=== PATIENT | female | born 1950 | race Caucasian/White ===

== ENCOUNTER 2016-10-28 11:11 | Emergency (ER) | payer OTHER ==
[~2016-10-28] VITALS: Ht 162.6 cm; Wt 58.1 kg
[2016-10-28 11:16] VITALS: BP 143/91; PULSE 95; TEMP 36.8; O2SAT 98; Ht 162.6 cm; Wt 58.1 kg
--- NOTE | 2016-10-28 17:06 | EMERGENCY ROOM VISIT NOTE ---
History Report prepared by Eneida: Jesica Sotelo Under the Supervision of: Dr. Kris Travis D.O. First contact with patient: 11:21 Chief Complaint: OTHER COMPLAINT Stated Complaint: NOT SLEEPING History of Present Illness The patient is a 66 year old female who presents to the Emergency Room with complaints of persistently being unable to sleep that started over one month ago. The patient states that she has never been able to well and that her sister has similar symptoms. She states that she sleeps no more than 2 hours a night and does not sleep during the day. She states that she lays down in her bed at night and watches TV. She has tried turning the TV off, but she states that it does not help. When she lays down to go to bed at night, she thinks about her whole life but nothing is concerning to her. She denies racing thoughts. She also denies headache, changes in vision, chest pain, shortness of breath, nausea, vomiting, and diarrhea. The patient states that she is stressed and that she lives in a four story farmhouse, but only stays on the first floor. She states that she avidly watches tennis. She states that she loves animals and has two dogs and two feral cats that she takes care of. She denies any suicidal or homicidal ideation, along with any recent drug or alcohol use. The patient also denies any personal or family history of bipolar disorder, schizophrenia, or manic episodes. The patient is not on any medications and has not been into to see a PCP for a while because the one she liked retired. She adds that she was in the hospital in September for dehydration because she was not eating or drinking. She states that she has been eating and drinking since then. She also states that during that visit they tried to tell her that she had drugs in her system, but she knows that she did not. The patient's notes from a prior visit indicate that she has been an alcoholic for years, abuses Xanax intermittently, used to abuse heroine, and stopped methadone. Source of History: patient Onset: over one month ago Position: other (generalized) Quality: other (unable to sleep) Timing: other (persistent) Associated Symptoms: No SOB, No chest pain, No diarrhea, No headache, No nausea, No vomiting Note: no racing thoughts, no suicidal or homicidal ideation, no changes in vision Review of Systems See HPI for pertinent positives & negatives. A total of 10 systems reviewed and were otherwise negative. Past Medical & Surgical Medical Problems: (1) Delirium (2) No pertinent past medical history (3) opiate (4) Opiate abuse, continuous (5) Polysubstance abuse Family History Diabetes mellitus SISTER Stroke FATHER Social History Smoking Status: Current Every Day Smoker Drug Use: other Marital Status: single Housing Status: lives alone Occupation Status: retired Current/Historical Medications No Active Prescriptions or Reported Meds Allergies Coded Allergies: No Known Allergies (Unverified , 10/03/16) Physical Exam Vital Signs Date Time Temp Pulse Resp B/P Pulse Ox O2 Delivery O2 Flow Rate FiO2 10/28/16 11:16 36.8 95 18 143/91 98 Room Air Physical Exam GENERAL: alert, sitting up in bed, anxious appearing, well nourished, no acute distress, non-toxic EYE EXAM: normal conjunctiva, PERRL and EOM's intact OROPHARYNX: no exudate, no erythema, lips, buccal mucosa, and tongue normal and mucous membranes are moist NECK: supple, no nuchal rigidity, no adenopathy, non-tender LUNGS: Clear to auscultation. Normal chest wall mechanics HEART: no murmurs, S1 normal and S2 normal ABDOMEN: abdomen soft, non-tender, normo-active bowel sounds, no masses, no rebound or guarding. BACK: Back is symmetrical on inspection and there is no deformity, no midline tenderness, no CVA tenderness. SKIN: no rashes and no bruising UPPER EXTREMITIES: upper extremities are grossly normal. LOWER EXTREMITIES: No pitting edema. NEURO EXAM: Normal sensorium, cranial nerves II-XII intact, normal speech, no weakness of arms, no weakness of legs. No drift. Finger to nose intact. Gross sensation intact. Alternating movements of upper extremities intact bilaterally. PSYCH: Denies suicidal or homicidal ideation. Denies racing thoughts. Medical Decision & Procedures Laboratory Results ED Course ED COURSE: Vital signs were reviewed and showed normal The patients medical record was reviewed The above diagnostic studies were performed and reviewed. ED treatments and interventions as stated above. 1134: The patient was evaluated in room C8. A complete history and physical examination was performed. 1203: The nurse informed me that the patient is refusing an IV and would like to leave now. 1205: I reassessed the patient. She refused blood work and urine sample. She notes that she just wants something to sleep. She, again, denies suicidal or homicidal ideation. The patient's girlfriend believes that the patient is at baseline and is well enough to go home. The patient simply requests something to sleep at this time. I recommended that she follows up with a PCP for that because I felt uncomfortable giving her anything due to her history of narcotic and benzo abuse. The patient left against medical advice at this time. Medical Decision Differential diagnosis includes etiologies such as mood disorder, infection, hypoglycemia, electrolyte abnormalities, cardiac sources, intracerebral event, toxicologic, neurologic, as well as others were entertained. Patient is a 66-year-old female who presents the ER with difficulty sleeping. She notes this has been present for the past several years and that her sister has the same issues. She denies any other complaints. This includes suicidal homicidal ideations. She denies any auditory visual hallucinations. She denies any recent thoughts. She denies any chest pain, shortness breath, nausea , vomiting, diarrhea, lightheadedness, dizziness, change in vision, or any other concerning signs or symptoms from her standpoint. She also denies any drugs or alcohol. Neuro is completely intact. She was with a friend at bedside. Upon review of her chart I recommended blood work for the patient declined. She notes that she just wants medication to help her sleep. Upon further review of her chart appears as though she has abused benzos and opiates in the past. At that time she appears to be misled the doctor as this time she told me that she had no previous drug or alcohol issues. She notes the previous doctors were lying. Still this time stressed the importance of blood work and a full evaluation. Patient declined. She requested medication since discharge. I declined as I felt this was unreasonable with her drug abuse. Following this the patient requested to be discharged and she left following informed refusal of care. I do not feel she isn't danger to herself or anyone around her. Her neighbor felt as though she was acting herself and was in no danger. Discussed with Pt concerning signs and symptoms to watch out for. Pt was instructed to follow up with their PCP and discussed with the patient their option to return to the ED at anytime for persistent or worsening symptoms. The appropriate anticipatory guidance and out-patient management, including indications for return to the emergency department, were explained at length to the patient and understood. Impression Primary Impression: Sleep disorder Scribe Attestation The scribe's documentation has been prepared under my direction and personally reviewed by me in its entirety. I confirm that the note above accurately reflects all work, treatment, procedures, and medical decision making performed by me. Departure Information Dispostion Against Medical Advice Prescriptions No Active Prescriptions or Reported Meds Referrals No Doctor, Assigned (PCP) Patient Instructions [facility]
== END 2016-10-28 12:15 | disposition left against medical advice (07) ==
LOC: C.EDB 11:16 → C.EDC 12:15
DX: G47.9 Sleep disorder, unspecified (principal); F11.10 Opioid abuse, uncomplicated; F17.210 Nicotine dependence, cigarettes, uncomplicated

== ENCOUNTER 2020-07-22 11:09 | Observation (INO) ==
--- OUTSIDE RECORDS SUMMARY | 2020-07-22 11:12 | External Medical Summary | Continuity of Care Document ---
:1950 Author Name Yuridia Almaguer Address Unavailable Unavailable , Care Team Providers Name Role Phone Unavailable Unavailable Unavailable Kg SILVA Unavailable [email or web address] PRO Rosina, W Unavailable Unavailable Unavailable Unavailable Unavailable Problems Tobacco use (305.1) (Z72.0) Changing nevus (216.9) (D22.9) Nicotine dependence (305.1) (F17.200) Screening for deficiency anemia (V78.1) (Z13.0) Screening for thyroid disorder (V77.0) (Z13.29) Migraine headache (346.90) (G43.909) Insomnia (780.52) (G47.00) Encounter for screening for lipoid disorders (V77.91) (Z13.2 20) Anxiety disorder (300.00) (F41.9) Substance abuse (305.90) (F19.10) Hepatitis C (070.70) (B19.20) Encounter for screening for diabetes mellitus (V77.1) (Z13.1 ) Allergies and Adverse Reactions No Known Drug Allergies (Allergy) Medications hydrOXYzine HCl - 50 MG Oral Tablet; CITLALY E 1 TABLET 3-4 TIMES DAILY NEEDED FOR SEVERE ANXIETY RICARDO Saul Tia Start: 19-Oct-2016 Quantity: 30 Refills: 0 Procedures History of Oral Surgery Tooth Extraction Status: Completed History of Incisional Breast Biopsy Stat us: Completed History of Biopsy Skin Status: Completed Immunizations Prevnar 13 Intramuscular Suspension On: 26-Jul-2016 11:12 Lot #: [id number] Family History Sister Family history of diabetes mellitus (V18.0) (Z83.3) Status: Active Family history of coronary artery disease (V17.3) (Z82.49) S tatus: Active Mother No pertinent family history in first degree relatives (V49.8 9) Status: Active (Z78.9) Brother No pertinent family history in first degree relatives (V49.8 9) Status: Active (Z78.9) Father Family history of cerebrovascular accident (V17.1) (Z82.3) S tatus: Active Social History - Smoking Status Smokes tobacco daily Plan of Treatment Planned Observations Planned Goals not documented Results No Known Results Results not documented
--- OUTSIDE RECORDS SUMMARY | 2020-07-22 11:12 | External Medical Summary | Continuity of Care Document ---
:1950 Author Name Yuridia Almaguer Address Unavailable Unavailable , Care Team Providers Name Role Phone Unavailable Unavailable Unavailable Kg SILVA Unavailable [email or web address] PRO Rosina, W Unavailable Unavailable Unavailable Unavailable Unavailable Problems Encounter for screening for diabetes mellitus (V77.1) (Z13.1 ) Anxiety disorder (300.00) (F41.9) Insomnia (780.52) (G47.00) Screening for thyroid disorder (V77.0) (Z13.29) Screening for deficiency anemia (V78.1) (Z13.0) Nicotine dependence (305.1) (F17.200) Changing nevus (216.9) (D22.9) Tobacco use (305.1) (Z72.0) Hepatitis C (070.70) (B19.20) Substance abuse (305.90) (F19.10) Encounter for screening for lipoid disorders (V77.91) (Z13.2 20) Migraine headache (346.90) (G43.909) Allergies and Adverse Reactions No Known Drug [...] Intramuscular Suspension On: 26-Jul-2016 11:12 Lot #: [id number] Family History Sister Family history of diabetes [...]
[2020-07-22] MEDS ORDERED: dilTIAZem HCl 5 MG/ML 5 ML VIAL IV ONE ×2 (11:39→11:58)
[2020-07-22] MEDS ORDERED: STAT IV Infusion **Titration per Protocol STA (11:52)
--- NOTE | 2020-07-22 11:56 | Emergency Department Note ---
History of Present Illness General Chief complaint: Hypertension Stated complaint: EXTREMELY HIGH BLOOD PRESSURE Time Seen by Provider: 07/22/20 11:36 Source: patient History of Present Illness Provider complaint: Palpitation Onset (ago): day(s) Location: chest Severity: moderate Pain Consistency: + constant Quality: + other (Heart racing) Relieved By: + none Associated symptoms: + other (Elevated blood pressure at the drugstore); no chest pain, no fever/chills, no headaches and no shortness of breath This is a 70-year-old female with no past medical history presenting with palpitations since yesterday. The patient states that she felt like her heart was racing last night. She did not take her pulse. It continued into today. No alleviating factors. No associated chest discomfort or pain, shortness of breath, weakness or lightheadedness. She went to the drugstore and took her blood pressure and it was elevated so she came here for evaluation. She denies any recent illness, fever, cough or cold symptoms, exposure to COVID-19, abdominal pain, vomiting or diarrhea or urinary symptoms. She denies any leg pain or swelling. She denies alcohol use. Home Medications Home Medications Medication Instructions Recorded Confirmed Type aspirin 81 mg PO DAILY 07/22/20 07/22/20 History Allergies Allergy/AdvReac Type Severity Reaction Status Date / Time No Known Allergies Allergy Unverified 07/22/20 12:55 Past Med/Surg History Medical History Depression with anxiety Sleep disorder Tobacco abuse Surgical History No history of previous surgery Family History Sister Hx of CABG Father Coronary heart disease Stroke Mother Stroke Coronary heart disease Social History Smoking Status: Current every day smoker Tobacco Type: Cigarettes packs per day: 1; Years Smoked: 50; Hx Alcohol Use: Yes Hx Substance Use: Yes Preferred Language: Tongan marital status: Single Current Living Situation: Significant Other Feels Safe at Home: Yes Review of Systems See HPI for pertinent positives & negatives. and A total of 10 systems reviewed and were otherwise negative Physical Exam Vital Signs Vital Signs - 24 hr 07/22/20 11:27 07/22/20 11:38 07/22/20 11:46 Temperature 36.5 C Temperature Source Oral Pulse Rate 169 H 181 H 162 H Pulse Rate from SpO2 Sensor 160 H Pulse Rhythm Regular Pulse Strength Normal Respiratory Rate 22 22 21 Respiratory Effort / Characteristics Non-Labored Spontaneous Respiratory Depth Normal Respiratory Pattern Regular Blood Pressure 158/101 H 180/120 H 149/78 H Blood Pressure Mean 120 134 116 Blood Pressure Position Sitting Pulse Oximetry 99 100 100 Oxygen Delivery Method Room Air Sepsis Recent Fever Within 48 Hours No Sepsis New/Unexplained Change in Mental Status No Sepsis Action Taken by Nursing No Action Required 07/22/20 11:48 07/22/20 11:50 07/22/20 11:55 Temperature Temperature Source Pulse Rate 163 H 153 H 169 H Pulse Rate from SpO2 Sensor Pulse Rhythm Pulse Strength Respiratory Rate 24 21 17 Respiratory Effort / Characteristics Respiratory Depth Respiratory Pattern Blood Pressure 140/88 138/66 148/77 H Blood Pressure Mean 104 99 95 Blood Pressure Position Pulse Oximetry 100 100 98 Oxygen Delivery Method Sepsis Recent Fever Within 48 Hours Sepsis New/Unexplained Change in Mental Status Sepsis Action Taken by Nursing 07/22/20 11:59 07/22/20 12:00 07/22/20 12:03 Temperature Temperature Source Pulse Rate 162 H 129 H 153 H Pulse Rate from SpO2 Sensor Pulse Rhythm Pulse Strength Respiratory Rate 15 14 16 Respiratory Effort / Characteristics Respiratory Depth Respiratory Pattern Blood Pressure 128/81 149/90 H 130/97 Blood Pressure Mean 114 115 111 Blood Pressure Position Pulse Oximetry 97 96 Oxygen Delivery Method Sepsis Recent Fever Within 48 Hours Sepsis New/Unexplained Change in Mental Status Sepsis Action Taken by Nursing 07/22/20 12:05 07/22/20 12:10 07/22/20 12:15 Temperature Temperature Source Pulse Rate 140 H 132 H 173 H Pulse Rate from SpO2 Sensor Pulse Rhythm Pulse Strength Respiratory Rate 27 H 16 19 Respiratory Effort / Characteristics Respiratory Depth Respiratory Pattern Blood Pressure 140/79 147/91 H 149/93 H Blood Pressure Mean 104 116 100 Blood Pressure Position Pulse Oximetry Oxygen Delivery Method Sepsis Recent Fever Within 48 Hours Sepsis New/Unexplained Change in Mental Status Sepsis Action Taken by Nursing 07/22/20 12:21 07/22/20 12:25 07/22/20 12:30 Temperature Temperature Source Pulse Rate 176 H 153 H 151 H Pulse Rate from SpO2 Sensor Pulse Rhythm Pulse Strength Respiratory Rate 21 14 20 Respiratory Effort / Characteristics Respiratory Depth Respiratory Pattern Blood Pressure 131/98 143/92 H 118/91 Blood Pressure Mean 104 108 103 Blood Pressure Position Pulse Oximetry Oxygen Delivery Method Sepsis Recent Fever Within 48 Hours Sepsis New/Unexplained Change in Mental Status Sepsis Action Taken by Nursing 07/22/20 12:31 07/22/20 12:35 07/22/20 12:40 Temperature Temperature Source Pulse Rate 150 H 150 H 151 H Pulse Rate from SpO2 Sensor Pulse Rhythm Pulse Strength Respiratory Rate 18 20 22 Respiratory Effort / Characteristics Respiratory Depth Respiratory Pattern Blood Pressure 131/86 142/93 H 133/92 Blood Pressure Mean 94 115 107 Blood Pressure Position Pulse Oximetry Oxygen Delivery Method Sepsis Recent Fever Within 48 Hours Sepsis New/Unexplained Change in Mental Status Sepsis Action Taken by Nursing 07/22/20 12:45 07/22/20 12:50 07/22/20 12:55 Temperature Temperature Source Pulse Rate 152 H 152 H 153 H Pulse Rate from SpO2 Sensor Pulse Rhythm Pulse Strength Respiratory Rate 19 21 22 Respiratory Effort / Characteristics Respiratory Depth Respiratory Pattern Blood Pressure 134/101 H 129/83 132/95 Blood Pressure Mean 105 99 102 Blood Pressure Position Pulse Oximetry Oxygen Delivery Method Sepsis Recent Fever Within 48 Hours Sepsis New/Unexplained Change in Mental Status Sepsis Action Taken by Nursing 07/22/20 13:00 07/22/20 13:05 07/22/20 13:22 Temperature Temperature Source Pulse Rate 150 H 150 H 152 H Pulse Rate from SpO2 Sensor 153 H Pulse Rhythm Pulse Strength Respiratory Rate 17 18 20 Respiratory Effort / Characteristics Respiratory Depth Respiratory Pattern Blood Pressure 120/95 149/90 H 147/98 H Blood Pressure Mean 110 116 103 Blood Pressure Position Pulse Oximetry 95 98 Oxygen Delivery Method Sepsis Recent Fever Within 48 Hours Sepsis New/Unexplained Change in Mental Status Sepsis Action Taken by Nursing 07/22/20 13:25 07/22/20 13:30 07/22/20 13:35 Temperature Temperature Source Pulse Rate 154 H 152 H 152 H Pulse Rate from SpO2 Sensor 154 H 152 H 152 H Pulse Rhythm Pulse Strength Respiratory Rate 19 23 14 Respiratory Effort / Characteristics Respiratory Depth Respiratory Pattern Blood Pressure 126/89 105/89 136/121 H Blood Pressure Mean 97 99 122 Blood Pressure Position Pulse Oximetry 97 99 100 Oxygen Delivery Method Sepsis Recent Fever Within 48 Hours Sepsis New/Unexplained Change in Mental Status Sepsis Action Taken by Nursing 07/22/20 13:40 07/22/20 13:41 07/22/20 13:45 Temperature Temperature Source Pulse Rate 153 H 153 H 152 H Pulse Rate from SpO2 Sensor 154 H 154 H 153 H Pulse Rhythm Pulse Strength Respiratory Rate 20 19 17 Respiratory Effort / Characteristics Respiratory Depth Respiratory Pattern Blood Pressure 127/100 142/83 H 124/89 Blood Pressure Mean 111 120 105 Blood Pressure Position Pulse Oximetry 98 99 99 Oxygen Delivery Method Sepsis Recent Fever Within 48 Hours Sepsis New/Unexplained Change in Mental Status Sepsis Action Taken by Nursing 07/22/20 14:00 07/22/20 14:15 07/22/20 14:31 Temperature Temperature Source Pulse Rate 154 H 152 H 154 H Pulse Rate from SpO2 Sensor 154 H 152 H 154 H Pulse Rhythm Pulse Strength Respiratory Rate 13 21 19 Respiratory Effort / Characteristics Respiratory Depth Respiratory Pattern Blood Pressure 141/82 H 151/79 H 143/99 H Blood Pressure Mean 129 105 115 Blood Pressure Position Pulse Oximetry 98 99 100 Oxygen Delivery Method Sepsis Recent Fever Within 48 Hours Sepsis New/Unexplained Change in Mental Status Sepsis Action Taken by Nursing 07/22/20 14:45 07/22/20 15:00 Temperature Temperature Source Pulse Rate 87 Pulse Rate from SpO2 Sensor 87 Pulse Rhythm Pulse Strength Respiratory Rate 16 Respiratory Effort / Characteristics Respiratory Depth Respiratory Pattern Blood Pressure 127/111 H Blood Pressure Mean 114 Blood Pressure Position Pulse Oximetry 97 Oxygen Delivery Method Room Air Sepsis Recent Fever Within 48 Hours Sepsis New/Unexplained Change in Mental Status Sepsis Action Taken by Nursing Constitutional: Vital signs reviewed. Eyes: Pupils are equal round reactive to light. Conjunctiva are noninjected. ENT: Pharynx is clear without erythema or exudate. Mucous membranes are moist. Neck supple without meningeal signs. Respiratory: Clear to auscultation bilaterally. Breath sounds are equal b ilaterally. Cardiovascular: Tachycardic. Heart rate 174. GI: Soft, nondistended and nontender. Bowel sounds are present. Musculoskeletal: No peripheral edema. No lower extremity tenderness. Integumentary: No cyanosis. or jaundice. Neurological: The patient is awake and alert. No focal deficits. Psychiatric: Normal affect. Not anxious appearing. Course Administered Medications Diltiazem HCl 125 mg/ Dextrose 125 mls @ 15 mls/hr IV .Q8H20M [facility]; Protocol Stop: 08/21/20 11:59 Last Titration: 07/22/20 13:08 Dose: 15 mg/hr, 15 mls/hr Documented by: [id number] Cosigned by: [id number] Titration: 07/22/20 12:40 Dose: 10 mg/hr, 10 mls/hr Documented by: [id number] Cosigned by: [id number] Admin: 07/22/20 12:10 Dose: 5 mg/hr, 5 mls/hr Documented by: [id number] Cosigned by: [id number] Heparin Sodium/Dextrose (Heparin Sodium/Dextrose) 25,000 units in 500 mls @ 0.02 mls/hr IV .Q24H [facility]; Protocol Stop: 08/21/20 13:59 Last Admin: 07/22/20 15:30 Dose: 650 units/hr, 13 mls/hr Documented by: [id number] Cosigned by: [id number] Discontinued Medications Diltiazem HCl (Diltiazem Hcl 5 Mg/Ml 5 Ml Vial) Confirm Administered Dose 25 mg IV .STK-MED ONE Stop: 07/22/20 11:40 Last Increment: 07/22/20 11:50 Dose: 20 mg Documented by: [id number] Cosigned by: [id number] Diltiazem HCl (Diltiazem Hcl 5 Mg/Ml 5 Ml Vial) Confirm Administered Dose 25 mg IV .STK-MED ONE Stop: 07/22/20 11:59 Last Increment: 07/22/20 12:02 Dose: 5 mg Documented by: [id number] Cosigned by: [id number] Heparin Sodium (Porcine) (Heparin Sod (Porcine) 1000 Unit/Ml 10 Ml Vial) Confirm Administered Dose 10,000 units .ROUTE .STK-MED ONE Stop: 07/22/20 14:30 Last Admin: 07/22/20 15:30 Dose: 3,000 units Documented by: [id number] Cosigned by: [id number] Heparin Sodium/Dextrose (Heparin Iv Low Dose With Bolus) 1 ea IV NOW STA; Protocol Stop: 07/22/20 13:52 Last Admin: 07/22/20 15:30 Dose: Not Given Documented by: [id number] Sodium Chloride (Nss) 500 mls @ 999 mls/hr IV .Q31M [facility] Stop: 07/22/20 12:30 Last Infusion: 07/22/20 12:40 Dose: 0 mls/hr Documented by: [id number] Admin: 07/22/20 11:54 Dose: 999 mls/hr Documented by: [id number] Potassium Chloride (K Eldon / Wtr) 10 meq in 100 mls @ 100 mls/hr IV Q1H [facility] Stop: 07/22/20 15:44 Last Admin: 07/22/20 15:58 Dose: 100 mls/hr Documented by: [id number] Infusion: 07/22/20 15:36 Dose: 100 mls/hr Documented by: [id number] Admin: 07/22/20 14:36 Dose: 100 mls/hr Documented by: [id number] Metoprolol Tartrate (Metoprolol Tartrate 1 Mg/Ml Vial) 2.5 mg IV NOW STA Stop: 07/22/20 14:26 Last Admin: 07/22/20 14:32 Dose: 2.5 mg Documented by: [id number] Miscellaneous (Stat Iv Infusion Titration Per Protocol) 1 ea N/A NOW STA Stop: 07/22/20 11:53 Last Admin: 07/22/20 12:10 Dose: Not Given Documented by: [id number] Potassium Chloride (Potassium Chloride 20 Meq Tabcr) 40 meq PO NOW STA Stop: 07/22/20 14:42 Last Admin: 07/22/20 15:58 Dose: 40 meq Documented by: [id number] Critical Care Time Critical Care Time: Yes Total Critical Care Time: 40 I have personally spent approximately 40 minutes of critical care time in the direct management of this patient. This includes bedside care, interpretation of diagnostic studies, and testing, discussion with consultants, patient, and family members, and other required patient management activities. These minutes are in excess of all separately billable procedures. Medical Decision Making Differential Diagnosis Dysrhythmia, A. fib with RVR, SVT, metabolic derangement, ACS Medical Records Attestation: I reviewed the patient's medical records. I did perform a limited focused review of portions of the patient's old chart on the electronic medical record. The patient has had no recent pertinent visits to this hospital. Home Medications Current Medication List: was personally reviewed by me Laboratory Data Attestation: I reviewed the patient's lab results. Result diagrams: 07/22/20 11:40 07/22/20 11:40 Lab Results 07/22/20 07/22/20 07/22/20 Range/Units 11:40 11:40 13:07 WBC 8.03 (4.8-10.8) K/uL RBC 6.03 H (4.2-5.4) M/uL Hgb 16.3 H (12.0-16.0) g/dL Hct 49.4 H (37-47) % MCV 81.9 (80-100) fL MCH 27.0 (25-34) pg MCHC 33.0 (32-36) g/dL RDW Std Deviation 48.5 H (36.4-46.3) fL RDW Coeff of Shima 16.1 H (11.5-14.5) % Plt Count 130 (130-400) K/uL MPV 10.8 H (7.4-10.4) fL Immature Gran % (Auto) 0.2 % Neut % (Auto) 72.2 % Lymph % (Auto) 19.8 % Winkler % (Auto) 7.5 % Eos % (Auto) 0.1 % Baso % (Auto) 0.2 % Neut # (Auto) 5.79 (1.4-6.5) K/uL Lymph # (Auto) 1.59 (1.2-3.4) K/uL Winkler # (Auto) 0.60 H (0.11-0.59) K/uL Eos # (Auto) 0.01 (0-0.5) K/uL Baso # (Auto) 0.02 (0-0.2) K/uL Immature Gran # (Auto) 0.02 (0.00-0.02) K/uL PT (9.0-12.0) Seconds INR (0.9-1.1) APTT (21.0-31.0) Seconds PTT Ratio Sodium 142 (136-145) mmol/L Potassium 3.1 L (3.5-5.1) mmol/L Chloride 108 H (98-107) mmol/L Carbon Dioxide 25 (21-32) mmol/L Anion Gap 9.0 (3-11) BUN 17 (7-18) mg/dl Creatinine 0.99 (0.6-1.2) mg/dl Est Cr Clr Drug Dosing 46.3 ml/min Est GFR ( Amer) 67.4 Est GFR (Non-Af Amer) 58.1 BUN/Creatinine Ratio 17.2 (10-20) Glucose 127 H (70-99) mg/dl Calcium 9.9 (8.5-10.1) mg/dl Magnesium 2.0 (1.8-2.4) mg/dl Total Bilirubin 0.9 (0.2-1) mg/dl AST 53 H (15-37) U/L ALT 52 (12-78) U/L Alkaline Phosphatase 98 (45-117) U/L Troponin I 0.017 (0-0.045) ng/ml Total Protein 10.1 H (6.4-8.2) gm/dl Albumin 4.0 (3.4-5.0) gm/dl Globulin 6.1 H (2.5-4.0) gm/dl Albumin/Globulin Ratio 0.7 L (0.9-2) TSH 0.989 (0.300-4.500) uIu/ml // Range/Units 15:26 WBC (4.8-10.8) K/uL RBC (4.2-5.4) M/uL Hgb (12.0-16.0) g/dL Hct (37-47) % MCV (80-100) fL MCH (25-34) pg MCHC (32-36) g/dL RDW Std Deviation (36.4-46.3) fL RDW Coeff of Shima (11.5-14.5) % Plt Count (130-400) K/uL MPV (7.4-10.4) fL Immature Gran % (Auto) % Neut % (Auto) % Lymph % (Auto) % Winkler % (Auto) % Eos % (Auto) % Baso % (Auto) % Neut # (Auto) (1.4-6.5) K/uL Lymph # (Auto) (1.2-3.4) K/uL Winkler # (Auto) (0.11-0.59) K/uL Eos # (Auto) (0-0.5) K/uL Baso # (Auto) (0-0.2) K/uL Immature Gran # (Auto) (0.00-0.02) K/uL PT 11.8 (9.0-12.0) Seconds INR 1.1 (0.9-1.1) APTT 27.9 (21.0-31.0) Seconds PTT Ratio 1.0 Sodium (136-145) mmol/L Potassium (3.5-5.1) mmol/L Chloride (98-107) mmol/L Carbon Dioxide (21-32) mmol/L Anion Gap (3-11) BUN (7-18) mg/dl Creatinine (0.6-1.2) mg/dl Est Cr Clr Drug Dosing ml/min Est GFR ( Amer) Est GFR (Non-Af Amer) BUN/Creatinine Ratio (10-20) Glucose (70-99) mg/dl Calcium (8.5-10.1) mg/dl Magnesium (1.8-2.4) mg/dl Total Bilirubin (0.2-1) mg/dl AST (15-37) U/L ALT (12-78) U/L Alkaline Phosphatase (45-117) U/L Troponin I (0-0.045) ng/ml Total Protein (6.4-8.2) gm/dl Albumin (3.4-5.0) gm/dl Globulin (2.5-4.0) gm/dl Albumin/Globulin Ratio (0.9-2) TSH (0.300-4.500) uIu/ml Imaging Data Radiologist's Impression: XR chest 1V portable CLINICAL HISTORY: tachycardic eval for pna COMPARISON STUDY: Chest radiograph October 03, 2016. FINDINGS: Lung volumes are normal. Lungs are clear. There is no pneumothorax or pleural effusion. Cardiac size is normal. Mediastinal contours are normal. There is no evidence for pulmonary edema. The patient is mildly rotated. IMPRESSION: No acute cardiopulmonary findings. ACT 112: Negative or not required by law. Electronically signed by: Mathew Benton M.D. 07/22/2020 12:02 PM Dictated: 07/22/20 1200 Transcribed: 07/22/20 1201 ECG Data Attestation: I personally reviewed and interpreted this ECG as follows: Indication: + palpitations Rate (beats per minute): 179 Rhythm: + atrial fibrillation ECG Intervals/blocks: no Left bundle branch block ECG ST segments: + ST depression ECG Findings: no PVCs MDM Narrative I did evaluate the patient as noted above. The patient is presenting with tachycardia. Her heart rate is in the 170s. IV access was established. I did place an order for continuous cardiac monitoring. The monitor showed she has atrial fibrillation with a heart rate of 179. I did order and personally review the patient's 12-lead EKG as described above. She has atrial fibrillation with RVR and nonspecific ST-T wave changes. I did treat her with Cardizem 10 mg IV. She was given an additional 15 mg IV. Her heart rate came down to about 125. I did start her on the continuous IV drip of Cardizem. I did order and personally reviewed the images of the patient's chest x-ray as described above. There is no evidence of acute process. I did order and review the patient's blood work as noted in the electronic medical record. Her potassium is 3.1. Hemoglobin sl ightly elevated. Glucose is 127. I did treat the patient with IV KCl. I did reassess the patient several times. Her Cardizem was titrated upwards as she was still tachycardic at a rate of 150. I did discuss the test results with the patient. I did discuss the case with Dr. Mason of cardiology. He recommended treating patient with Lopressor 2.5 mg IV and he will assess the patient. I did treat patient with Lopressor 2.5 mg IV. Her heart rate did come down to about 80-120. Her blood pressure remained stable. I did discuss the case with the hospitalist and case management social worker. I did start the patient on IV heparin after discussing risks and benefits with her as well as indication for a nticoagulation. Impression & Plan Atrial fibrillation with RVR, Elevated hemoglobin, Hypokalemia Discharge Plan Visit Data Chief Complaint: Hypertension Stated Complaint: EXTREMELY HIGH BLOOD PRESSURE ED Provider: Raphael Webber Discharge Problem: Atrial fibrillation with RVR, Elevated hemoglobin, Hypokalemia Patient Disposition: Admitted As Inpatient Discharge Instructions Interventions: ED Discharge Assessment Last Done: 07/22/20 15:00 Forms Stand Alone Forms: My [employer] Prescriptions Prescriptions: No Action aspirin 81 mg Tablet,Chewable 81 mg PO DAILY RF: 0 Referrals Referrals: PCP,NO [Primary Care Provider] -
[2020-07-22] MEDS ORDERED: dilTIAZem HCL 125 MG in DEXTROSE 5% 100 ML IV SCH (12:00)
[2020-07-22] MEDS ORDERED: SODIUM CHLORIDE 0.9% 500 ML IV SCH (12:00)
--- NOTE | 2020-07-22 12:04 | XRay Report ---
XR chest 1V portable CLINICAL HISTORY: tachycardic eval for pna COMPARISON STUDY: Chest radiograph October 03, 2016. FINDINGS: Lung volumes are normal. Lungs are clear. There is no pneumothorax or pleural effusion. Car diac size is normal. Mediastinal contours are normal. There is no evidence for pulmonary edema. The p atient is mildly rotated. IMPRESSION: No acute cardiopulmonary findings. ACT 112: Negative or not required by law. Electronically signed by: Mathew Benton M.D. 07/22/2020 12:02 PM
[2020-07-22 12:18] LABS: Basophils # (auto) 0.02 K/uL (0-0.2); Basophils % (auto) 0.2 %; Eosinophils # (auto) 0.01 K/uL (0-0.5); Eosinophils % (auto) 0.1 %; Hematocrit (blood only) 49.4 % (37-47); Hemoglobin 16.3 g/dL (12.0-16.0); Immature Granulocytes # (auto) 0.02 K/uL (0.00-0.02); Immature Granulocytes % (auto) 0.2 %; Lymphocytes # (auto) 1.59 K/uL (1.2-3.4); Lymphocytes % (auto) 19.8 %; Mean Corpuscular Volume 81.9 fL (80-100); Mean Platelet Volume 10.8 fL (7.4-10.4); Monocytes % (auto) 7.5 %; Neutrophils # (auto) 5.79 K/uL (1.4-6.5); Neutrophils % (auto) 72.2 %; Platelet Count 130 K/uL (130-400); RDW Coefficient of Variation 16.1 % (11.5-14.5); RDW Standard Deviation 48.5 fL (36.4-46.3); Red Blood Count 6.03 M/uL (4.2-5.4); White Blood Count 8.03 K/uL (4.8-10.8)
[2020-07-22 12:24] LABS: BUN Creatinine Ratio 17.2 (10-20); Calcium 9.9 mg/dl (8.5-10.1); Creatinine Clr Calc Pharmacy 46.3 ml/min; Est GFR (African American) 67.4; Est GFR (Non-African American) 58.1; Potassium 3.1 mmol/L (3.5-5.1)
[2020-07-22 12:34] LABS: Albumin Globulin Ratio 0.7 (0.9-2); Bilirubin,Total 0.9 mg/dl (0.2-1); Globulin 6.1 gm/dl (2.5-4.0); Thyroid Stimulating Hormone 0.989 uIu/ml (0.300-4.500); Total Protein 10.1 gm/dl (6.4-8.2)
[2020-07-22] MEDS ORDERED: Heparin IV Low Dose WITH Bolus IV STA (13:51)
[2020-07-22] MEDS ORDERED: HEPARIN SODIUM/DEXTROSE 25,000 UNITS/500 ML BAG IV SCH (14:00)
[2020-07-22] MEDS ORDERED: METOPROLOL TARTRATE 1 MG/ML VIAL IV STA (14:25)
[2020-07-22] MEDS ORDERED: HEPARIN SOD (PORCINE) 1000 UNIT/ML 10 ML VIAL ONE (14:29)
[2020-07-22] MEDS: POTASSIUM CHLORIDE / WTR 10 MEQ/100 ML PLCT IV SCH ×2 (14:36→15:58)
[2020-07-22] MEDS ORDERED: POTASSIUM CHLORIDE 20 MEQ TABCR PO STA (14:41)
--- NOTE | 2020-07-22 14:43 | History & Physical Report ---
Date of Service July 22, 2020 Assessment & Plan (1) Atrial fibrillation with RVR: This is a 70-year-old female who has significant past medical history of depression with anxiety, hx of polysubstance abuse, hx of abnormal MRI brain w/o followup, and tobacco abuse who presents to ED secondary to heart racing x2 days. Chadsvasc 2 (F, age) Pt unable to delineate exact onset of symptoms but likely ~48hrs or greater Admit to PCU Continue Diltiazem bolus/gtt, also received 2.5mg IV Lopressor x 1 in ED Heparin gtt started cardiology consulted obtain echo per ED provider who spoke with cardiology Lopressor 2.5mg IV ordered no obvious etiology TSH WNL, no excessive caffeine use, denies current drug use, no infecious/resp sx (2) Hypokalemia: K 3.1 received KCL 10meq x 2 in ED along with 40meq KCL oral obtain bmp @ 9pm and in a.m. (3) Elevated random blood glucose level: BSG 127 obtain A1C in a.m. (4) Elevated hemoglobin: H/H elevated at 16.3 and 49.4 pt is a smoker will give IVF repeat CBC in am (5) Tobacco abuse: encourage smoking cessation DVT ppx: heparin gtt Follow up: PCP Dr. Deng upon discharge Pt was seen and examined in collaboration with Dr. Olmedo, please see addendum History of Present Illness Chief Complaint: Heart racing x 2 days. Primary Care Provider: Dr. Deng This is a 70-year-old female who has significant past medical history of depression with anxiety, hx of polysubstance abuse, hx of abnormal MRI brain w/o followup, and tobacco abuse who presents to ED secondary to heart racing x2 days. She is not the best historian, but elicits approximately 2 nights ago she became very sweaty and diaphoretic while lying in bed. Over the past 2 days she has had intermittent episodes of her heart feeling like it is racing. She says it is not constant, but has come and gone. Currently she feels as if her heart is racing. She states she was at a right aid and checked her blood pressure. Her blood pressure was 169. A previous doctor had told her if her blood pressure was never over 150 she should go to the ER immediately. She was concerned so she came in for evaluation. She denies any fever, chills, lighth eadedness, dizziness, syncope, chest pain, shortness of breath, THOMPSON, cough, nausea, vomiting, abdominal pain, change in bowel or urinary habits. She denies similar symptoms in the past. She does have a significant family history of sister who had CABG, mother and father who both sustained a stroke and CAD, but unknown ages. She is a 1 pack/day smoker for approximately 50 years. She does have a prior history of alcohol use, but this has since ceased. She drinks approximately 1 cup of coffee a day. She denies any illicit stimulant or drug use. Of significance she follows Dr. Deng, but patient does not appear to be compliant with follow-ups. Per records she had outpatient work-up for possible multiple myeloma secondary to abnormal brain MRI 05/31/2015, right calvarial lesion demonstrating minimal enhancement likely representing multiple myeloma or eosinophilic granuloma. She did have SPEP and UPEP which were negative. But otherwise no follow-up. In ED her heart rates were in the 150s to 160s. Her blood pressure was stable. She received 20 mg of IV diltiazem bolus and started on diltiazem drip. During my examination she was on 15 mg with continued heart rates in the 150s. Due to not exact known duration of symptoms she was started appropriately on IV heparin drip. She was also ordered potassium replacement with 10meq KCL x 2. Allergies Allergy/AdvReac Type Severity Reaction Status Date / Time No Known Allergies Allergy Unverified 07/22/20 12:55 Home Medications Home Medications Medication Instructions Recorded Confirmed Type aspirin 81 mg PO DAILY 07/22/20 07/22/20 History Past Med/Surg History Medical History Depression with anxiety Sleep disorder Tobacco abuse Surgical History No history of previous surgery Family History Sister Hx of CABG Father Coronary heart disease Stroke Mother Stroke Coronary heart disease Social History Smoking Status: Current every day smoker Tobacco Type: Cigarettes packs per day: 1; Years Smoked: 50; Hx Alcohol Use: Yes Hx Substance Use: Yes Preferred Language: Mongolian marital status: Single Current Living Situation: Significant Other Feels Safe at Home: Yes Review of Systems Review of Systems: All systems reviewed & are unremarkable except as noted in HPI & below Physical Exam Physical Exam: Constitutional: WD/WN, vitals as above, NAD, sitting up in bed, pleasant, conversing easily Head: Normocephalic, Atraumatic Eyes: PERRL, conjunctivae normal, anicteric sclerae ENMT: external ear and nose normal, oropharynx normal Neck: trachea midline, no thyromegaly normal visual inspection Respiratory: normal respiratory effort, lungs clear to auscultation, no wheeze, rales, rhonchi. Normal insp/exp effort, no accessory muscle use Cardiovascular: IRR/IRR, tachycardic HR 155, no murmur, no edema Vessels: no JVD or carotid bruit Chest: normal inspection of chest Abdomen: normal bowel sounds, soft, nontender, no hepatosplenomegaly Musculoskeletal: no cyanosis or clubbing, extremities motor strength 5/5 Skin: no rashes, warm and dry normal turgor Neurologic: PERRL, EOMI, accommodation nl, no face palsy, no dysarthria CN's II-XI intact bilaterally and moves all extremities Psychiatric: A+Ox3, euthymic affect Lymphatic: no cervical or axillary lymphadenopathy : deferred Results & Data Results & Data ([facility]) Vital Signs (Past 12 Hours) Vital Signs Temp Pulse Resp BP Pulse Ox 07/22/20 13:00 150 H 17 120/95 07/22/20 12:55 153 H 22 132/95 07/22/20 12:50 152 H 21 129/83 07/22/20 12:45 152 H 19 134/101 H 07/22/20 12:40 151 H 22 133/92 07/22/20 12:35 150 H 20 142/93 H 07/22/20 12:31 150 H 18 131/86 07/22/20 12:30 151 H 20 118/91 07/22/20 12:25 153 H 14 143/92 H 07/22/20 12:21 176 H 21 131/98 07/22/20 12:15 173 H 19 149/93 H 07/22/20 12:10 132 H 16 147/91 H 07/22/20 12:05 140 H 27 H 140/79 07/22/20 12:03 153 H 16 130/97 07/22/20 12:00 129 H 14 149/90 H 96 07/22/20 11:59 162 H 15 128/81 97 07/22/20 11:55 169 H 17 148/77 H 98 07/22/20 11:50 153 H 21 138/66 100 07/22/20 11:48 163 H 24 140/88 100 07/22/20 11:46 162 H 21 149/78 H 100 07/22/20 11:38 181 H 22 180/120 H 100 07/22/20 11:27 36.5 C 169 H 22 158/101 H 99 Laboratory Results Short CBC 07/22/20 Range/Units 11:40 WBC 8.03 (4.8-10.8) K/uL Hgb 16.3 H (12.0-16.0) g/dL Hct 49.4 H (37-47) % Plt Count 130 (130-400) K/uL BMP 07/22/20 11:40 Sodium 142 Potassium 3.1 L Chloride 108 H Carbon Dioxide 25 BUN 17 Creatinine 0.99 Glucose 127 H Calcium 9.9 Cardiac Enzymes 07/22/20 Range/Units 13:07 Troponin I 0.017 (0-0.045) ng/ml Liver Function 07/22/20 Range/Units 11:40 Total Bilirubin 0.9 (0.2-1) mg/dl AST 53 H (15-37) U/L ALT 52 (12-78) U/L Alkaline Phosphatase 98 (45-117) U/L Albumin 4.0 (3.4-5.0) gm/dl Diagnostic Findings CXR: IMPRESSION: No acute cardiopulmonary findings. Medications Administered Diltiazem HCl 125 mg/ Dextrose 125 mls @ 15 mls/hr IV .Q8H20M [facility]; Protocol Stop: 08/21/20 11:59 Last Titration: 07/22/20 13:08 Dose: 15 mg/hr, 15 mls/hr Documented by: [id number] Cosigned by: [id number] Titration: 07/22/20 12:40 Dose: 10 mg/hr, 10 mls/hr Documented by: [id number] Cosigned by: [id number] Admin: 07/22/20 12:10 Dose: 5 mg/hr, 5 mls/hr Documented by: [id number] Cosigned by: [id number] Potassium Chloride (K Eldon / Wtr) 10 meq in 100 mls @ 100 mls/hr IV Q1H PORTIA Stop: 07/22/20 15:44 Last Admin: 07/22/20 14:36 Dose: 100 mls/hr Documented by: [id number] Discontinued Medications Diltiazem HCl (Diltiazem Hcl 5 Mg/Ml 5 Ml Vial) Confirm Administered Dose 25 mg IV .STK-MED ONE Stop: 07/22/20 11:40 Last Increment: 07/22/20 11:50 Dose: 20 mg Documented by: [id number] Cosigned by: [id number] Diltiazem HCl (Diltiazem Hcl 5 Mg/Ml 5 Ml Vial) Confirm Administered Dose 25 mg IV .STK-MED ONE Stop: 07/22/20 11:59 Last Increment: 07/22/20 12:02 Dose: 5 mg Documented by: [id number] Cosigned by: [id number] Sodium Chloride (Nss) 500 mls @ 999 mls/hr IV .Q31M PORTIA Stop: 07/22/20 12:30 Last Infusion: 07/22/20 12:40 Dose: 0 mls/hr Documented by: [id number] Admin: 07/22/20 11:54 Dose: 999 mls/hr Documented by: [id number] Metoprolol Tartrate (Metoprolol Tartrate 1 Mg/Ml Vial) 2.5 mg IV NOW STA Stop: 07/22/20 14:26 Last Admin: 07/22/20 14:32 Dose: 2.5 mg Documented by: [id number] Miscellaneous (Stat Iv Infusion Titration Per Protocol) 1 ea N/A NOW STA Stop: 07/22/20 11:53 Last Admin: 07/22/20 12:10 Dose: Not Given Documented by: [id number] ECG Rate (beats per minute): 179 Rhythm: atrial fibrillation Findings: + ST depression Additional Comments: Market ST abnormality inferior and anterior subendocardial injury likely in setting of tachycardia T wave inversions leads I, II Code Status & VTE Plan Code Status Full Code VTE Prophylaxis Plan VTE Prophylaxis will be ordered: No Supervising Physician Co-Signing Physician Notes I saw this patient with the physician credit control assistant, I participated in the history, physical, review of systems, and physical exam. I reviewed the medications with the patient and the physician credit control assistant and helped reconcile the medications. I helped take a detailed family and social history as well. I formulated the assessment and plan personally with the physician credit control assistant and went over it with the patient. ROS-No Headache, No Visual Changes, No Nausea, No Vomiting, No Fever, No Chills, No Neck Pain or Stiffness, No Chest Pain, No Palpitations, No SOB, No THOMPSON, No Cough, No Sputum, No Wheezing, No Abdominal Pain, No Diarrhea, No Hematemesis, No Hemoptysis, No Unexpected Weight Loss, No Flank pain, No Melena, No Hematochezia, No Frequency, No Urgency, No Burning, No Hematuria, No Rashes, No Diaphoresis. Appetite is Normal Physical Exam Gen-AAO x 3, NAD, Afebrile Head-NCAT, EOMI, PERRLA, Anicteric Sclera, No Posterior Pharyngeal Erythema Neck-Supple, No JVD, No Thyromegaly, No Masses, No LAD, No Bruits Lungs-Clear to Auscultation Bilaterally, No Rales, No Rhonchi, No Wheezing, No Crepitus Chest-tachy, No S4, +S1, +S2, No S3, No Murmurs, No Rubs, No Gallops Abdomen-Soft, Bowel Sounds Present, Non Tender, Non Distended, No Hepatomegaly, No Splenomegaly, No Palpable Masses, No Rebound, No Rigidity, No Guarding Musculoskeletal-Full Range of Motion Bilaterally, No CVAT Extremities-No Cyanosis, No Clubbing, No Edema Nuero-Cranial Nerves II-XII grossly intact, Motor WNL, DTRs WNL, Strength WNL, Non Focal Psych-Normal Mood
[2020-07-22 15:49] LABS: INR 1.1 (0.9-1.1); Partial Thromboplastin Time 27.9 Seconds (21.0-31.0); Prothrombin Time 11.8 Seconds (9.0-12.0)
[2020-07-22] MEDS ORDERED: ONDANSETRON INJ 2 MG/ML 2 ML VIAL IV PRN (16:32)
[2020-07-22] MEDS ORDERED: ACETAMINOPHEN 325 MG TAB PO PRN (16:32)
[2020-07-22] MEDS ORDERED: MAGNESIUM HYDROXIDE SUSP 30 ML UDC PO PRN (16:32)
[2020-07-22] MEDS ORDERED: ALUMINUM/MAGNESIUM SUSP 30 ML UDC PO PRN (16:32)
[2020-07-22] MEDS ORDERED: INFLUENZA ADMINISTRATION CHARGE ONE (16:53)
[2020-07-22] MEDS ORDERED: INFLUENZA VIRUS QUAD VACCINE 0.5 ML SYR IM ONE (16:53)
[2020-07-22] MEDS ORDERED: METOPROLOL TARTRATE 25 MG TAB PO SCH (17:15)
[2020-07-22] MEDS ORDERED: METOPROLOL TARTRATE 25 MG TAB PO STA (17:19)
--- NOTE | 2020-07-22 17:48 | Cardiology Consultation ---
Date of Consultation July 22, 2020 Assessment & Plan (1) Atrial fibrillation with RVR: (2) Hypokalemia: Patient has received 40 mEq of potassium chloride as ordered by the primary team for her potassium level of 3.1 TSH screen was within normal limits. Troponin was within normal limits at 0.017 ng/ml on initial evaluation at 1307. An additional troponin level will be drawn at a 6-hour interval due at 1900, and then again in the morning. As noted, ischemic ST segment depression was noted on the initial EKG, however her ventricular rates were very fast at that time, and based on her history, I would anticipate that she had been experiencing rapid ventricular rates for approximately 24 hours prior to seeking medical attention. An echocardiogram has already been performed, with findings of no regional wall motion abnormalities, hyperdynamic left ventricular systolic function, LVEF greater than 70%. Mild aortic valve sclerosis without stenosis was present, no evidence of pulmonary hypertension. Diagnostics: EKG will be repeated tomorrow. Troponin to be trended as noted. Therapeutics: Unfractioned heparin has been initiated for stroke prophylaxis. Continue IV diltiazem, plan to add oral metoprolol, 25 mg by mouth every 6 hours, first dose now. Patient's diet to be advanced. We will make her n.p.o. after midnight pending reassessment of her heart rate tomorrow. History of Present Illness Attending Physician: Randall Olmedo, History of Present Illness Yani Kumari is a 70-year-old female seen in cardiology consultation [facility] Je[facility] PA-C for the evaluation of symptomatic atrial fibrillation with rapid ventricular response. The patient denies any past cardiac history. She notes onset of heart palpitations yesterday. She presented to the emergency room for further evaluation at which time EKG performed 07/22/2020 at 11:32 AM revealed atrial fibrillation with strongly rapid ventricular rate of 179 bpm, with associated diffuse ST segment depression. The patient was placed on a diltiazem infusion which was titrated up to 15 mg/h, but she remains tachycardic. At the time of my assessment in room 236-1 of the PCU, atrial fibrillation in the range of 139 bpm was present. The patient noted however that she was already feeling significantly improved compared to how she felt at home, and in the emergency room earlier today. I had previously discussed this case with Dr. Webber of the ED and I recommended a dose of IV metoprolol, 2.5 mg, and this did transiently improve the ventricular rate down to the 90s. However as noted, she has already tachycardic again up on the floor. She denies associated shortness of breath or chest pressure. Family History: She notes her sister who is 3 years older than her had coronary artery bypass grafting a few years ago. Social History: She is a longtime cigarette smoker, she smokes about a pack of cigarettes per day. 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 Allergies Allergy/AdvReac Type Severity Reaction Status Date / Time No Known Allergies Allergy Unverified 07/22/20 12:55 Home Medications Home Medications Medication Instructions Recorded Confirmed Type aspirin 81 mg PO DAILY 07/22/20 07/22/20 History Patient History Medical History Depression with anxiety Sleep disorder Tobacco abuse Surgical History No history of previous surgery Family History Sister Hx of CABG Father Coronary heart disease Stroke Mother Stroke Coronary heart disease Social History Smoking Status: Current every day smoker Tobacco Type: Cigarettes packs per day: 1; Years Smoked: 50; Cigarettes Per Day: 1 ppd; Second Hand Exposure: Yes; Do You Dip or Chew Tobacco: No; Tobacco Cessation Education Requested by Patient: No Hx Alcohol Use: Yes Alcohol type: beer Hx Substance Use: No Preferred Language: Kittitian Communication Ability: Effective Valve Repairer Required: No Beliefs That Will Affect Care: None marital status: Single Current Living Situation: Significant Other Other Information That Helps Us Care for You: No Feels Safe at Home: Yes Safety Concerns: Feels Safe At This Time Assistive Devices: Glasses Review of Systems Review of Systems: All systems reviewed & are unremarkable except as noted in HPI & below Physical Exam Physical Exam: Temp Pulse Resp BP Pulse Ox 36.7 C 141 H 20 121/92 98 07/22/20 16:33 07/22/20 16:33 07/22/20 16:33 07/22/20 16:33 07/22/20 16:33 Constitutional: WD/WN, vitals as above Respiratory: normal respiratory effort, lungs clear to auscultation Cardiovascular: Rate/Rhythm: + tachycardic and + irregularly irregular Heart Sounds: no murmur Vessels: no JVD Extremities: no edema Gastrointestinal (Abdomen): normal bowel sounds, soft, nontender, no hepatosplenomegaly Neurologic: PERRL, EOMI, accommodation nl, no face palsy, no dysarthria Results & Data ([facility]) Vital Signs (Past 12 Hours) Vital Signs Temp Pulse Pulse Resp BP BP Pulse Ox 07/22/20 16:33 36.7 C 141 H 20 121/92 98 07/22/20 14:45 87 16 127/111 H 97 07/22/20 14:31 154 H 19 143/99 H 100 07/22/20 14:15 152 H 21 151/79 H 99 07/22/20 14:00 154 H 13 141/82 H 98 07/22/20 13:45 152 H 17 124/89 99 07/22/20 13:41 153 H 19 142/83 H 99 07/22/20 13:40 153 H 20 127/100 98 07/22/20 13:35 152 H 14 136/121 H 100 07/22/20 13:30 152 H 23 105/89 99 07/22/20 13:25 154 H 19 126/89 97 07/22/20 13:22 152 H 20 147/98 H 98 07/22/20 13:05 150 H 18 149/90 H 95 07/22/20 13:00 150 H 17 120/95 07/22/20 12:55 153 H 22 132/95 07/22/20 12:50 152 H 21 129/83 07/22/20 12:45 152 H 19 134/101 H 07/22/20 12:40 151 H 22 133/92 07/22/20 12:35 150 H 20 142/93 H 07/22/20 12:31 150 H 18 131/86 07/22/20 12:30 151 H 20 118/91 07/22/20 12:25 153 H 14 143/92 H 07/22/20 12:21 176 H 21 131/98 07/22/20 12:15 173 H 19 149/93 H 07/22/20 12:10 132 H 16 147/91 H 07/22/20 12:05 140 H 27 H 140/79 07/22/20 12:03 153 H 16 130/97 07/22/20 12:00 129 H 14 149/90 H 96 07/22/20 11:59 162 H 15 128/81 97 07/22/20 11:55 169 H 17 148/77 H 98 07/22/20 11:50 153 H 21 138/66 100 07/22/20 11:48 163 H 24 140/88 100 07/22/20 11:46 162 H 21 149/78 H 100 07/22/20 11:38 181 H 22 180/120 H 100 07/22/20 11:27 36.5 C 169 H 22 158/101 H 99 Laboratory Results Cardiac Enzymes 07/22/20 07/22/20 Range/Units 11:40 13:07 AST 53 H (15-37) U/L Troponin I 0.017 (0-0.045) ng/ml Coagulation 07/22/20 Range/Units 15:26 PT 11.8 (9.0-12.0) Seconds APTT 27.9 (21.0-31.0) Seconds CBC 07/22/20 Range/Units 11:40 WBC 8.03 (4.8-10.8) K/uL RBC 6.03 H (4.2-5.4) M/uL Hgb 16.3 H (12.0-16.0) g/dL Hct 49.4 H (37-47) % Plt Count 130 (130-400) K/uL Neut # (Auto) 5.79 (1.4-6.5) K/uL Lymph # (Auto) 1.59 (1.2-3.4) K/uL Cocke # (Auto) 0.60 H (0.11-0.59) K/uL Eos # (Auto) 0.01 (0-0.5) K/uL Baso # (Auto) 0.02 (0-0.2) K/uL Comprehensive Metabolic Panel 07/22/20 Range/Units 11:40 Sodium 142 (136-145) mmol/L Potassium 3.1 L (3.5-5.1) mmol/L Chloride 108 H (98-107) mmol/L Carbon Dioxide 25 (21-32) mmol/L BUN 17 (7-18) mg/dl Creatinine 0.99 (0.6-1.2) mg/dl Glucose 127 H (70-99) mg/dl Calcium 9.9 (8.5-10.1) mg/dl AST 53 H (15-37) U/L ALT 52 (12-78) U/L Alkaline Phosphatase 98 (45-117) U/L Total Protein 10.1 H (6.4-8.2) gm/dl Albumin 4.0 (3.4-5.0) gm/dl Intake and Output 07/22/20 07/22/20 07/22/20 06:59 14:59 22:59 Intake Total 507.167 / 707.167 200 / 707.167 Balance 507.167 / 707.167 200 / 707.167 Intake: IV 507.167 / 707.167 200 / 707.167 K RIDER / WTR 10 meq In 100 ml 200 / 200 @ 100 mls/hr IV Q1H PORTIA Rx#: [id number] Nss 500 ml @ 999 mls/hr IV . 500 / 500 Q31M PORTIA Rx#:[id number] Cardizem 125 mg In D5 100 ml @ 7.167 / 7.167 5 MG/HR 5 mls/hr IV .Q24H PORTIA Rx#:[id number] Other: Weight 57.7 kg 57.7 kg Weight Measurement Method Chair Scale Built in [facility] Patient Weight 07/23/20 06:59 Weight 57.7 kg
[2020-07-22] MEDS ORDERED: Nursing to Pharmacy Communication SCH ×2 (18:15→19:15)
--- NOTE | 2020-07-22 18:19 | Communication Note ---
Date of Service: July 22, 2020 Ventricular rates remain rapid, 140 bpm, just received her first dose of oral metoprolol. Due to concerns that the patient may require procedure such as transesophageal echocardiogram guided direct-current cardioversion, I have made her n.p.o. after midnight, and I have ordered a preprocedure COVID-19 screen. I have discussed this with her nurse.
[2020-07-22] MEDS ORDERED: MELATONIN 3 MG TAB PO PRN (18:20)
[2020-07-22 21:47] LABS: Partial Thromboplastin Ratio 1.4; Partial Thromboplastin Time 38.4 Seconds (21.0-31.0)
[2020-07-22 21:56] LABS: BUN Creatinine Ratio 21.8 (10-20); Calcium 9.4 mg/dl (8.5-10.1); Creatinine Clr Calc Pharmacy 63.7 ml/min; Est GFR (African American) 102.9; Est GFR (Non-African American) 88.8; Potassium 3.8 mmol/L (3.5-5.1)
[2020-07-22] MEDS ORDERED: HEPARIN IV BOLUS 4,000 UNITS in SYRINGE 0 ML IV ONE (21:58)
[2020-07-22] MEDS: METOPROLOL TARTRATE 25 MG TAB PO SCH (23:53)
[2020-07-23 04:56] LABS: Hematocrit (blood only) 47.6 % (37-47); Hemoglobin 15.7 g/dL (12.0-16.0); Mean Corpuscular Volume 81.9 fL (80-100); RDW Coefficient of Variation 16.2 % (11.5-14.5); RDW Standard Deviation 48.3 fL (36.4-46.3); Red Blood Count 5.81 M/uL (4.2-5.4); White Blood Count 4.51 K/uL (4.8-10.8)
[2020-07-23 05:16] LABS: Partial Thromboplastin Ratio 2.1
[2020-07-23 05:18] LABS: Partial Thromboplastin Time 57.4 Seconds (21.0-31.0)
[2020-07-23 05:23] LABS: BUN Creatinine Ratio 24.5 (10-20); Calcium 9.3 mg/dl (8.5-10.1); Creatinine Clr Calc Pharmacy 70.8 ml/min; Est GFR (African American) 106.6; Potassium 3.8 mmol/L (3.5-5.1)
[2020-07-23 05:28] LABS: Troponin I 0.038 ng/ml (0-0.045)
[2020-07-23 05:39] LABS: Platelet Count 94 K/uL (130-400)
[2020-07-23 05:40] LABS: Platelet Estimate Decreased (Normal)
[2020-07-23] MEDS: METOPROLOL TARTRATE 25 MG TAB PO SCH ×2 (05:43→12:02)
--- NOTE | 2020-07-23 05:55 | Electrocardiogram Report ---
Test Reason : Blood Pressure : / mmHG Vent. Rate : 179 BPM Atrial Rate : 174 BPM P-R Int : 000 ms QRS Dur : 084 ms QT Int : 266 ms P-R-T Axes : 000 050 209 degrees QTc Int : 459 ms Atrial fibrillation with rapid ventricular response Marked ST abnormality, possible inferior subendocardial injury Marked ST abnormality, possible anterior subendocardial injury Abnormal ECG When compared with ECG of 03-OCT-2016 08:24, Atrial fibrillation has replaced Sinus rhythm Vent. rate has increased BY [address] now depressed in Anterior leads T wave inversion now evident in Inferior leads T wave inversion now evident in Anterolateral leads Confirmed by hCetan Myers ([id number]) on 07/23/2020 5:55:11 AM Referred By: REFERRED SELF Confirmed By:Chetan Myers
[2020-07-23 06:01] LABS: Estimated Average Glucose 100 mg/dl; Hemoglobin A1C 5.1 % (4.5-5.6)
--- NOTE | 2020-07-23 10:19 | Electrocardiogram Report ---
Test Reason : Blood Pressure : / mmHG Vent. Rate : 063 BPM Atrial Rate : 063 BPM P-R Int : 128 ms QRS Dur : 076 ms QT Int : 412 ms P-R-T Axes : 000 045 060 degrees QTc Int : 421 ms Normal sinus rhythm Minimal voltage criteria for LVH, may be normal variant Borderline ECG When compared with ECG of 22-JUL-2020 11:32, Significant changes have occurred Confirmed by Feroz Ashton ([id number]) on 07/23/2020 10:18:46 AM Referred By: REFERRED SELF Confirmed By:Feroz Ashton
--- NOTE | 2020-07-23 10:50 | Electrocardiogram Report ---
Test Reason : Blood Pressure : / mmHG Vent. Rate : 061 BPM Atrial Rate : 061 BPM P-R Int : 134 ms QRS Dur : 076 ms QT Int : 484 ms P-R-T Axes : 070 071 072 degrees QTc Int : 487 ms Normal sinus rhythm Prolonged QT Abnormal ECG When compared with ECG of 22-JUL-2020 19:09, (unconfirmed) QT has lengthened Confirmed by Feroz Ashton ([id number]) on 07/23/2020 10:50:10 AM Referred By: REFERRED SELF Confirmed By:Feroz Ashton
[2020-07-23] MEDS ORDERED: LORazepam 0.5 MG TAB PO STA ×2 (11:07→15:34)
[2020-07-23 12:05] LABS: Partial Thromboplastin Ratio 1.6; Partial Thromboplastin Time 43.7 Seconds (21.0-31.0)
--- NOTE | 2020-07-23 12:56 | Cardiology Progress Note ---
Date of Service July 23, 2020 Assessment & Plan (1) Atrial fibrillation with RVR: Patient presented with 24 hours of symptoms of palpitations the correlate with the finding of atrial fibrillation with very rapid ventricular response, 179 bpm on initial EKG. She was treated with diltiazem infusion, titrated to 50 mg/h, and metoprolol tartrate was added with subsequent conversion shortly after her first dose of oral metoprolol tartrate last evening. Per review of telemetry, on 07/22/2020, at 1855, she converted to sinus rhythm with a 2.2-second conversion pause. She then reverted back to atrial fibrillation, and shortly thereafter at 18: 57 she converted to sinus rhythm without a conversion pause, and has remained in sinus rhythm in the interim. Repeat EKG this morning 07/23/2020 at 6:30 AM revealed normal sinus rhythm at 61 bpm, the QT interval was mildly prolonged at 487 ms, otherwise normal. No ST segment depression. The patient did have significant repolarization changes consistent with ischemia with the rapid ventricular response, her troponin was trended however and peaked at 0.047 NG per mL which is only minimally elevated, upper limit of normal 0.045 ng/ml. Given the fact that she was tachycardic with very rapid response likely for 24 hours, this is likely just related to elevated rate. She had no symptoms suggestive angina on presentation yesterday. Echocardiogram performed while she was tachycardic revealed normal LV wall motion, hyperdynamic LVEF. Her [id number] score is 3 for age of 70 and female sex. Blood pressures have been elevated on several occasions while hospitalized, suggestive of underlying hypertension, which would add a third risk factor. In terms of stroke prophylaxis, would recommend anticoagulation with Coumadin or direct oral anticoagulant such as Eliquis. Her platelet count was 130 on presentation and 90 today. Hepatitis C antibody was positive. Outpatient follow-up of the hepatitis C antibody test is recommended. I think in the meantime, her platelet count is within acceptable range to proceed with anticoagulation, ideally at least a short course of Eliquis 5 mg twice daily for a month pending reassessment, perhaps with a 7-day belt turner. Patient states she feels well, and is eager for discharge. Anticipate discharge later today. I recommend transitioning her to metoprolol tartrate 25 mg twice daily at time of discharge. Dr Montgomery is going to look in to the patient's out of pocket cost for Eliquis. Admission and Anticipated Discharge Date Admission Date: July 22, 2020 Subjective Patient feeling well. Sensation of palpitations has subsided. She is now in sinus rhythm. Review of Systems Review of Systems: All systems reviewed & are unremarkable except as noted in HPI & below Physical Exam Physical Exam: Temp Pulse Resp BP Pulse Ox 36.5 C 64 19 165/79 H 99 07/23/20 12:13 07/23/20 12:13 07/23/20 12:13 07/23/20 12:13 07/23/20 12:13 Constitutional: WD/WN, vitals as above Respiratory: normal respiratory effort, lungs clear to auscultation Cardiovascular: RRR, no murmur, no edema Gastrointestinal (Abdomen): normal bowel sounds, soft, nontender, no hepatosplenomegaly Neurologic: PERRL, EOMI, accommodation nl, no face palsy, no dysarthria Results & Data ([facility]) Vital Signs (Past 12 Hours) Vital Signs Temp Pulse Pulse Resp BP Pulse Ox 07/23/20 12:13 36.5 C 64 19 165/79 H 99 07/23/20 08:08 36.7 C 57 L 18 142/90 H 99 07/23/20 07:58 59 L 07/23/20 05:40 73 16 145/72 H 07/23/20 03:22 37.0 C 70 18 147/82 H 100 Laboratory Results Cardiac Enzymes 07/22/20 07/22/20 07/23/20 Range/Units 13:07 19:20 04:35 Troponin I 0.017 0.047 H* 0.038 (0-0.045) ng/ml Coagulation 07/22/20 07/22/20 07/23/20 Range/Units 15:26 21:26 04:34 PT 11.8 (9.0-12.0) Seconds APTT 27.9 38.4 H 57.4 H* (21.0-31.0) Seconds 07/23/20 Range/Units 11:33 PT (9.0-12.0) Seconds APTT 43.7 H (21.0-31.0) Seconds CBC 07/23/20 Range/Units 04:35 WBC 4.51 L (4.8-10.8) K/uL RBC 5.81 H (4.2-5.4) M/uL Hgb 15.7 (12.0-16.0) g/dL Hct 47.6 H (37-47) % Plt Count 94 L (130-400) K/uL Comprehensive Metabolic Panel 07/22/20 07/23/20 Range/Units 21:26 04:35 Sodium 141 140 (136-145) mmol/L Potassium 3.8 D 3.8 (3.5-5.1) mmol/L Chloride 112 H 109 H (98-107) mmol/L Carbon Dioxide 25 28 (21-32) mmol/L BUN 15 15 (7-18) mg/dl Creatinine 0.69 D 0.62 (0.6-1.2) mg/dl Glucose 102 H 89 (70-99) mg/dl Calcium 9.4 9.3 (8.5-10.1) mg/dl Intake and Output 07/22/20 07/23/20 07/23/20 22:59 06:59 14:59 Intake Total 286.884 / 901.051 107 / 901.051 29.25 / 29.25 Balance 286.884 / 901.051 107 / 901.051 29.25 / 29.25 Intake: IV 286.884 / 901.051 107 / 901.051 29.25 / 29.25 HEPARIN SODIUM/DEXTROSE 25,000 86.884 / 193.884 107 / 193.884 29.25 / 29.25 units In 500 ml @ 650 UNITS/HR 13 mls/hr IV .Q24H PORTIA Rx#: [id number] K RIDER / WTR 10 meq In 100 ml 200 / 200 @ 100 mls/hr IV Q1H PORTIA Rx#: [id number] Other: Other Intake Source NPO # Unmeasured Voids 1 2 Weight 57.7 kg Weight Measurement Method Built in [facility]
[2020-07-23] MEDS ORDERED: HEPARIN IV BOLUS 2,000 UNITS in SYRINGE 0 ML IV ONE (13:00)
--- NOTE | 2020-07-23 13:19 | Hospitalist Progress Note ---
Date of Service July 23, 2020 Assessment & Plan (1) Atrial fibrillation with RVR: -This is a 70-year-old female who has significant past medical history of depression with anxiety, hx of polysubstance abuse, hx of abnormal MRI brain w/o followup, and tobacco abuse who presents to ED secondary to heart racing x2 days and presents to hospital on 07/22/2020 as per cardiology summary by Dr. Martin "Patient presented with 24 hours of symptoms of palpitations the correlate with the finding of atrial fibrillation with very rapid ventricular response, 179 bpm on initial EKG. She was treated with diltiazem infusion, titrated to 50 mg/h, and metoprolol tartrate was added with subsequent conversion shortly after her first dose of oral metoprolol tartrate last evening. Per review of telemetry, on 07/22/2020, at 1855, she converted to sinus rhythm with a 2.2-second conversion pause. She then reverted back to atrial fibrillation, and shortly thereafter at 18: 57 she converted to sinus rhythm without a conversion pause, and has remained in sinus rhythm in the interim. Repeat EKG this morning 07/23/2020 at 6:30 AM revealed normal sinus rhythm at 61 bpm, the QT interval was mildly prolonged at 487 ms, otherwise normal. No ST segment depression. The patient did have significant repolarization changes consistent with ischemia with the rapid ventricular response, her troponin was trended however and peaked at 0.047 NG per mL which is only minimally elevated, upper limit of normal 0.045 ng/ml. Given the fact that she was tachycardic with very rapid response likely for 24 hours, this is likely just related to elevated rate. She had no symptoms suggestive angina on presentation yesterday. Echocardiogram performed while she was tachycardic revealed normal LV wall motion, hyperdynamic LVEF. Her [id number] score is 3 for age of 70 and female sex. Blood pressures have b een elevated on several occasions while hospitalized, suggestive of underlying hypertension, which would add a third risk factor. In terms of stroke prophylaxis, would recommend anticoagulation with Coumadin or direct oral anticoagulant such as Eliquis. Her platelet count was 130 on presentation and 90 today. Hepatitis C antibody was positive. Outpatient follow-up of the hepatitis C antibody test is recommended. I think in the meantime, her platelet count is within acceptable range to proceed with anticoagulation, ideally at least a short course of Eliquis 5 mg twice daily for a month pending reassessment, perhaps with a 7-day athletic monitor. Patient states she feels well, and is eager for discharge. Anticipate discharge later today. I recommend transitioning her to metoprolol tartrate 25 mg twice daily at time of discharge." Discharge appointments Cardiology appointment with Dr. Martin on 07/28/2020 at 11:00 AM [facility] [address] , [place] [address] (2) Hypokalemia: -initial serum potassium 3.1, patient received KCL 10meq x 2 in ED along with 40meq KCL oral -serum potassium normalized to 3.8, patient should follow up with primary care doctor for routine labs admitting hospitalist was concerned for "Elevated random blood glucose level" (of 127 which is not very high and the Hemoglobin A1c is normal as 5.1) (3) Hepatitis C antibody positive in blood: -Hepatitis C antibody was positive. -Outpatient follow-up of the hepatitis C antibody test is recommended. Discharge appointments Primary Care appointment with Dr. Sanz on 07/26/2020 at 10:20 AM [facility] [address], [place] [address] (4) Thrombocytopenia: -serum platelets 90,000 on 07/23/2020 -follow up labs with primary medical doctor (5) Elevated hemoglobin: -initial Hemoglobin/ hematocrit elevated at 16.3 and 49.4 -patient is a smoker -her hemoglobin on 07/23/2020 is 15.7 (6) Tobacco abuse: -patient was discussed smoking cessation but she reports that she has not thought about cutting back. she declines nicotine patch Admission and Anticipated Discharge Date Admission Date: July 22, 2020 Subjective Patient in normal sinus rhythm. No acute distress. no chest pain. no abdomen pain. no nausea. breathing on room air. no shortness of breath. Discussed her medical health issues and outpatient follow ups with discharge instructions. Patient will transition from IV heparin to oral Eliquis 5 mg BID as per cardiology. Patient expresses erasmo understanding Review of Systems Review of Systems: All systems reviewed & are unremarkable except as noted in Subjective Physical Exam Constitutional: comfortable Eyes: PERRL, conjunctivae normal, anicteric sclerae EOM intact bilaterally ENMT: external ear and nose normal, oropharynx normal Neck: normal visual inspection Respiratory: normal respiratory effort, lungs clear to auscultation Cardiovascular: Rate/Rhythm: regular rhythm and + bradycardic Gastrointestinal (Abdomen): normal bowel sounds, soft, nontender, no hepatosplenomegaly Musculoskeletal: Head/Neck/Chest: normocephalic and head atraumatic Neurologic: PERRL, EOMI, accommodation nl, no face palsy, no dysarthria CN's II-XI intact bilaterally Psychiatric: A+Ox3, euthymic affect Results & Data Results & Data ([facility]) Vital Signs (Past 12 Hours) Vital Signs Temp Pulse Pulse Resp BP Pulse Ox 07/23/20 12:13 36.5 C 64 19 165/79 H 99 07/23/20 08:08 36.7 C 57 L 18 142/90 H 99 07/23/20 07:58 59 L 07/23/20 05:40 73 16 145/72 H 07/23/20 03:22 37.0 C 70 18 147/82 H 100
[2020-07-23] MEDS ORDERED: ACETAMINOPHEN 325 MG TAB PO PRN (13:30)
--- NOTE | 2020-07-23 13:39 | Discharge Summary ---
Date of Service July 23, 2020 Admission HPI Per Admitting Provider This is a 70-year-old female who has significant past medical history of depression with anxiety, hx of polysubstance abuse, hx of abnormal MRI brain w/o followup, and tobacco abuse who presents to ED secondary to heart racing x2 days. She is not the best historian, but elicits approximately 2 nights ago she became very sweaty and diaphoretic while lying in bed. Over the past 2 days she has had intermittent episodes of her heart feeling like it is racing. She says it is not constant, but has come and gone. Currently she feels as if her heart is racing. She states she was at a right aid and checked her blood pressure. Her blood pressure was 169. A previous doctor had told her if her blood pressure was never over 150 she should go to the ER immediately. She was concerned so she came in for evaluation. She denies any fever, chills, lightheadedness, dizziness, syncope, chest pain, shortness of breath, THOMPSON, cough, nausea, vomiting, abdominal pain, change in bowel or urinary habits. She denies similar symptoms in the past. She does have a significant family history of sister who had CABG, mother and father who both sustained a stroke and CAD, but unknown ages. She is a 1 pack/day smoker for approximately 50 years. She does have a prior history of alcohol use, but this has since ceased. She drinks approximately 1 cup of coffee a day. She denies any illicit stimulant or drug use. Of significance she follows Dr. Deng, but patient does not appear to be compliant with follow-ups. Per records she had outpatient work-up for possible multiple myeloma secondary to abnormal brain MRI 05/31/2015, right calvarial lesion demonstrating minimal enhancement likely representing multiple myeloma or eosinophilic granuloma. She did have SPEP and UPEP which were negative. But otherwise no follow-up. In ED her heart rates were in the 150s to 160s. Her blood pressure was stable. She received 20 mg of IV diltiazem bolus and started on diltiazem drip. During my examination she was on 15 mg with continued heart rates in the 150s. Due to not exact known duration of symptoms she was started appropriately on IV heparin drip. She was also ordered potassium replacement with 10meq KCL x 2. Principal Diagnosis Atrial fibrillation with RVR Hypokalemia Thrombocytopenia Tobacco abuse Hepatitis C antibody positive Discharge Exam Constitutional comfortable Eyes PERRL, conjunctivae normal, anicteric sclerae EOM intact bilaterally ENMT external ear and nose normal, oropharynx normal Neck normal visual inspection Respiratory normal respiratory effort, lungs clear to auscultation Cardiovascular Rate/Rhythm: regular rhythm and + bradycardic Gastrointestinal (Abdomen) normal bowel sounds, soft, nontender, no hepatosplenomegaly Musculoskeletal Head/Neck/Chest: normocephalic and head atraumatic Neurologic PERRL, EOMI, accommodation nl, no face palsy, no dysarthria CN's II-XI intact bilaterally Psychiatric A+Ox3, euthymic affect Discharge Data Allergies Allergy/AdvReac Type Severity Reaction Status Date / Time No Known Allergies Allergy Unverified 07/22/20 12:55 Consultations 07/22/20 13:51 ED Decision to Admit Stat 07/22/20 14:42 Consult Cardiology Routine Hospital Course (1) Atrial fibrillation with RVR: -This is a 70-year-old female who has significant past medical history of depression with anxiety, hx of polysubstance abuse, hx of abnormal MRI brain w/o followup, and tobacco abuse who presents to ED secondary to heart racing x2 days and presents to hospital on 07/22/2020 as per cardiology summary by Dr. Martin "Patient presented with 24 hours of symptoms of palpitations the correlate with the finding of atrial fibrillation with very rapid ventricular response, 179 bpm on initial EKG. She was treated with diltiazem infusion, titrated to 50 mg/h, and metoprolol tartrate was added with subsequent conversion shortly after her first dose of oral metoprolol tartrate last evening. Per review of telemetry, on 07/22/2020, at 1855, she converted to sinus rhythm with a 2.2-second conversion pause. She then reverted back to atrial fibrillation, and shortly thereafter at 18: 57 she converted to sinus rhythm without a conversion pause, and has remained in sinus rhythm in the interim. Repeat EKG this morning 07/23/2020 at 6:30 AM revealed normal sinus rhythm at 61 bpm, the QT interval was mildly prolonged at 487 ms, otherwise normal. No ST segment depression. The patient did have significant repolarization changes consistent with ischemia with the rapid ventricular response, her troponin was trended however and peaked at 0.047 NG per mL which is only minimally elevated, upper limit of normal 0.045 ng/ml. Given the fact that she was tachycardic with very rapid response likely for 24 hours, this is likely just related to elevated rate. She had no symptoms suggestive angina on presentation yesterday. Echocardiogram performed while she was tachycardic revealed normal LV wall motion, hyperdynamic LVEF. Her [id number] score is 3 for age of 70 and female sex. Blood pressures have been elevated on several occasions while hospitalized, suggestive of underlying hypertension, which would add a third risk factor. In terms of stroke prophylaxis, would recommend anticoagulation with Coumadin or direct oral anticoagulant such as Eliquis. Her platelet count was 130 on presentation and 90 today. Hepatitis C antibody was positive. Outpatient follow-up of the hepatitis C antibody test is recommended. I think in the meantime, her platelet count is within acceptable range to proceed with anticoagulation, ideally at least a short course of Eliquis 5 mg twice daily for a month pending reassessment, perhaps with a 7-day traffic monitor specialist. Patient states she feels well, and is eager for discharge. Anticipate discharge later today. I recommend transitioning her to metoprolol tartrate 25 mg twice daily at time of discharge." Discharge appointments Cardiology appointment with Dr. Martin on 07/28/2020 at 11:00 AM [facility] [address] [facility] [address] (2) Hypokalemia: -initial serum potassium 3.1, patient received KCL 10meq x 2 in ED along with 40meq KCL oral -serum potassium normalized to 3.8, patient should follow up with primary care doctor for routine labs admitting hospitalist was concerned for "Elevated random blood glucose level" (of 127 which is not very high and the Hemoglobin A1c is normal as 5.1) (3) Hepatitis C antibody positive in blood: -Hepatitis C antibody was positive. -Outpatient follow-up of the hepatitis C antibody test is recommended. Discharge appointments Primary Care appointment with Dr. Sanz on 07/26/2020 at 10:20 AM [facility] [address], [place] [address] (4) Thrombocytopenia: -serum platelets 90,000 on 07/23/2020 -follow up labs with primary medical doctor (5) Elevated hemoglobin: -initial Hemoglobin/ hematocrit elevated at 16.3 and 49.4 -patient is a smoker -her hemoglobin on 07/23/2020 is 15.7 (6) Tobacco abuse: -patient was discussed smoking cessation but she reports that she has not thought about cutting back. she declines nicotine patch Total Time Total Time Spent Total Time Spent (In Minutes): 40 minutes Total Time Includes: Examination of the Patient, Discharge Planning, Medication Reconciliation and Communication With Other Providers Discharge Plan Discharge Items Patient Disposition: Home - Self-Care Reason For Visit: NEW ONSET ATRIAL FIB Discharge Diagnosis: Atrial fibrillation with RVR Hypokalemia Thrombocytopenia Tobacco abuse Hepatitis C antibody positive Activity: Resume your previous activity Non-emergency contact: Primary Care Provider and Client Resolution Specialist Call non-emergency contact if: you have any medication questions Follow-up/Referrals: PCPJESSY [Primary Care Provider] - Diet: Heart Healthy Myron Attending Provider Instructions: Discharge medications to [facility], [facility] Discharge appointments Primary Care appointment with Dr. Sanz on 07/26/2020 at 10:20 AM [facility] [address], [place] [address] Martin on 07/28/2020 at 11:00 AM [facility] [address], [place] [address] [employer]tl [employer] Provider Instructions: as per cardiology summary by Dr. Martin "Patient presented with 24 hours of symptoms of palpitations the correlate with the finding of atrial fibrillation with very rapid ventricular response, 179 bpm on initial EKG. She was treated with diltiazem infusion, titrated to 50 mg/h, and metoprolol tartrate was added with subsequent conversion shortly after her first dose of oral metoprolol tartrate last evening. Per review of telemetry, on 07/22/2020, at 1855, she converted to sinus rhythm with a 2.2-second conversion pause. She then reverted back to atrial fibrillation, and shortly thereafter at 18: 57 she converted to sinus rhythm without a conversion pause, and has remained in sinus rhythm in the interim. Repeat EKG this morning 07/23/2020 at 6:30 AM revealed normal sinus rhythm at 61 bpm, the QT interval was mildly prolonged at 487 ms, otherwise normal. No ST segment depression. The patient did have significant repolarization changes consistent with ischemia with the rapid ventricular response, her troponin was trended however and peaked at 0.047 NG per mL which is only minimally elevated, upper limit of normal 0.045 ng/ml. Given the fact that she was tachycardic with very rapid response likely for 24 hours, this is likely just related to elevated rate. She had no symptoms suggestive angina on presentation yesterday. Echocardiogram performed while she was tachycardic revealed normal LV wall motion, hyperdynamic LVEF. Her [id number] score is 3 for age of 70 and female sex. Blood pressures have been elevated on several occasions while hospitalized, suggestive of underlying hypertension, which would add a third risk factor. In terms of stroke prophylaxis, would recommend anticoagulation with Coumadin or direct oral anticoagulant such as Eliquis. Her platelet count was 130 on presentation and 90 today. Hepatitis C antibody was positive. Outpatient follow-up of the hepatitis C antibody test is recommended. I think in the meantime, her platelet count is within acceptable range to proceed with anticoagulation, ideally at least a short course of Eliquis 5 mg twice daily for a month pending reassessment, perhaps with a 7-day traffic monitor specialist. Patient states she feels well, and is eager for discharge. Anticipate discharge later today. I recommend transitioning her to metoprolol tartrate 25 mg twice daily at time of discharge." Pending Studies at Discharge: No Stand-Alone Forms: My [facility], Smoking Cessation Medications and DC Order Prescriptions: New metoprolol tartrate 25 mg Tablet 25 mg PO BID 30 Days Qty: 60 RF: 0 Eliquis 5 mg Tablet 5 mg PO BID 30 Days Qty: 60 RF: 0 Discontinued aspirin 81 mg Tablet,Chewable 81 mg PO DAILY RF: 0 Discharge Orders: Discharge Order (Routine); Ordered 07/23/20 Ordered By: Randall Montgomery Admission Data Admit Date/Time: 07/22/20 14:10 Attending Provider: Randall Montgomery Admit Provider: Randall Olmedo Primary Care Provider: PCP,NO Other Providers: Randall Olmedo ; Chinmay Martin
--- NOTE | 2020-07-23 14:14 | Communication Note ---
Date of Service: July 23, 2020 Code 44 Documentation. This is a 70-year-old female who has significant past medical history of depression with anxiety, hx of polysubstance abuse, hx of abnormal MRI brain w/o followup, and tobacco abuse who presents to ED secondary to heart racing x2 days. Her chart, labs, EKG and imaging studies reviewed. She was admitted with a fever with RVR which has been controlled and he did not have any ACS. She was evaluated by capsule machine operator and was advised that she can be discharged By CMS guidelines, a determination that the admission or continued stay is not medically necessary has been made by a member of the UR committee and a physician for this hospital stay, therefore a Code 44 will be completed and the Inpatient admission will be changed to outpatient. DR Frank Merino (Member UR committee)
[2020-07-23] MEDS ORDERED: APIXABAN 5 MG TABLET PO SCH (16:00)
[2020-07-23] MEDS ORDERED: METOPROLOL TARTRATE 25 MG TAB PO SCH (21:00)
--- NOTE | 2020-08-18 12:49 | Coding Query ---
A supporting diagnosis is required for the test/procedure performed on this patient in order for us to be reimbursed by the patient's insurance. Please provide a supporting diagnosis for the following test/procedure listed below next to the test name along with your signature. *If there is no additional diagnosis for this patient that would support the following test/procedure please document that below next to the test/procedure. Test(s)/Procedure(s) that require a supporting diagnosis: * Q9957 PERFLUTREN LIPID MICRO,2ML-ECHO DIAGNOSIS: Atrial fibrillation with rapid ventricular rate DATE OF SERVICE: 07/22/20 Provider Signature: ___Saida Jerez PA-C Date: __08/18/20 Thank you [facility] Information Management Once completed, please kindly fax back to [phone] For questions please call [phone] There is no supporting diagnosis for this test MTDD
== END 2020-07-23 17:09 | disposition home or self-care (01) | DRG 309 ==
LOC: ED 11:09 → INTOOBSV 14:10 → 2S 14:10 → SUATTDRO 14:10 → 2S 15:00

== ENCOUNTER 2021-10-20 17:45 | Inpatient (IN) ==
--- NOTE | 2021-10-20 18:02 | Emergency Department Note ---
Impression & Plan Atrial flutter with rapid ventricular response, Thrombocytopenia, Hypomagnesemia, Leg swelling ED Provider Note Provider: David Oh MD DATE OF SERVICE: 10/20/2021 CHIEF COMPLAINT: Leg swelling HISTORY OF PRESENT ILLNESS: Patient is a 71-year-old female history of hepatitis C, prior drug use, and atrial fibrillation not currently on home medications presenting today noting this morning some leg swelling left greater than right. Patient denies any fevers, chills, shortness of breath, or palpitations. Reported to triage she may have had a little bit of chest discomfort this afternoon but denies this to me. Denies abdominal symptoms either. Denies recent travel. Patient states she is not currently taking any medications. Patient says she does feel little bit nervous. Denies significant leg pain although her foot was maybe a little bit stiff earlier. Denies any trauma. REVIEW OF SYSTEMS: A total of 10 review of systems was obtained and negative except as stated above in the HPI. PAST MEDICAL HISTORY: As noted above MEDICATIONS: Denies current home medications SOCIAL HISTORY: Smoker, denies current alcohol use PHYSICAL EXAM: GENERAL: alert and oriented in no acute distress on stretcher Head: normocephalic and atraumatic EYES: No injection, discharge or icterus. NECK: Trachea midline. LUNGS: Airway patent. No retractions. Breath sounds clear with good air entry bilaterally. HEART: Regular tachycardic rate and rhythm. No chest wall tenderness ABDOMEN: Soft and non-tender, without guarding or rebound. SKIN: Acyanotic, warm, dry, without rashes EXTREMITIES: Without tenderness or severe erythema with 2+ left and 1+ right bilateral edema of the feet to calves. No tenderness of the calves. NEUROLOGICAL: No focal deficits. No aphasia. No facial droop or slurred speech. Normal strength and tone in the extremities. Sensation to gross touch normal. Ambulatory. EK bpm appears to be in atrial flutter with [address] segment elevation with some inferior lateral slight ST depression/T wave changes. QTc 392. CONTINUOUS CARDIAC MONITORING: was ordered and showed a heart rate of 120s-140s bpm in atrial flutter occasional atrial fibrillation Patient's laboratory studies and imaging reviewed. Differential includes Premature contractions, electrolyte abnormality, cardiac dysrhythmia, thyroid dysfunction, pulmonary embolism, infection, gastrointestinal, as well as other pathologies. IMPRESSION/MEDICAL DECISION MAKING: Patient with left greater than right leg swelling. Not on anticoagulation with a history of A. fib. Denies palpitations or shortness of breath. Denies any chest pain at this time. Patient states she feels a bit nervous but initial EKG concerning for regular tachycardia but is unchanging in nature. EKG is unchanging related to rate while on the monitor here and seems consistent with atrial flutter. Question if she has gone into atrial flutter with some mild heart failure component. No oxygen requirement. X-ray without evidence of pulmonary edema. Basic labs and troponin were completed. Low suspicion this represents DVT at this time given the clinical history. Given some diltiazem to see if we can affect some rate control. She is not unstable at this time. 15 mg dose of diltiazem had no appreciable effect on rate control. Drip was started. Given some magnesium with low magnesium here. Discussed with patient need for further attempts for rate control. She was in agreement with the plan for further observation here and the hospitalist was contacted. Will defer any anticoagulation to the inpatient team to choose. Chronic thrombocytopenia. May benefit from some Lasix when blood pressure allows. DIAGNOSIS: Rapid atrial flutter, leg swelling, hypomagnesemia, thrombocytopenia DISPOSITION: Hospitalist will evaluate Patient was agreeable with this plan. Critical Care I have personally spent 32 minutes of critical care time in the direct manag ement of this patient. This includes bedside care, interpretation of diagnostic studies, and testing, discussion with consultants, patient, and other required patient management activities. These 32 minutes is in excess of all separately billable procedures. Past Med/Surg History Medical History (Updated 10/20/21 @ 20:23 by Saida Gurrola PA-C) Atrial fibrillation with RVR Depression with anxiety Elevated hemoglobin Hypokalemia Sleep disorder Tobacco abuse Surgical History No history of previous surgery Family History Sister Hx of CABG Father Coronary heart disease Stroke Mother Stroke Coronary heart disease Social History (Updated 10/20/21 @ 20:21 by Saida Gurrola PA-C) Smoking Status: Current every day smoker Tobacco Type: Cigarettes packs per day: 1; Years Smoked: 50; Cigarettes Per Day: 1 ppd; Second Hand Exposure: Yes; Hx Alcohol Use: No Hx Substance Use: No Preferred Language: Ukrainian Communication Ability: Effective Environmental Property Assessor Required: No Beliefs That Will Affect Care: None marital status: Single Current Living Situation: Significant Other Feels Safe at Home: Yes Assistive Devices: None Allergies Allergies Allergy/AdvReac Type Severity Reaction Status Date / Time No Known Allergies Allergy Unverified 10/20/21 18:09 Home Meds Home Medications Medication Instructions Recorded Confirmed No Known Home Medications 10/20/21 10/20/21 Results & Data (ED) Vital Signs Vital Signs - 24 hr 10/20/21 17:47 10/20/21 18:12 10/20/21 18:13 Temperature 36.4 C L Temperature Source Skin Pulse Rate 142 H Pulse Rate [Apical] 141 H Pulse Rate from SpO2 Sensor Respiratory Rate 18 19 Respiratory Effort / Characteristics Non-Labored Spontaneous Respiratory Depth Normal Blood Pressure 159/70 H Blood Pressure [Right Arm] 152/79 H Blood Pressure Mean 99 Blood Pressure Mean [Right Arm] 103 Blood Pressure Position [Right Arm] Lying Pulse Oximetry 97 95 Oxygen Delivery Method Room Air Room Air Room Air Sepsis Recent Fever Within 48 Hours No Sepsis New/Unexplained Change in Mental Status No Sepsis Action Taken by Nursing No Action Required 10/20/21 18:17 10/20/21 18:20 10/20/21 18:30 Temperature Temperature Source Pulse Rate 139 H 139 H 140 H Pulse Rate [Apical] Pulse Rate from SpO2 Sensor 139 H 140 H Respiratory Rate 13 14 16 Respiratory Effort / Characteristics Respiratory Depth Blood Pressure Blood Pressure [Right Arm] Blood Pressure Mean Blood Pressure Mean [Right Arm] Blood Pressure Position [Right Arm] Pulse Oximetry 100 100 Oxygen Delivery Method Sepsis Recent Fever Within 48 Hours Sepsis New/Unexplained Change in Mental Status Sepsis Action Taken by Nursing 10/20/21 18:40 10/20/21 18:46 10/20/21 19:00 Temperature Temperature Source Pulse Rate 139 H 140 H 141 H Pulse Rate [Apical] Pulse Rate from SpO2 Sensor Respiratory Rate 9 L 21 14 Respiratory Effort / Characteristics Respiratory Depth Blood Pressure 145/94 H 137/85 Blood Pressure [Right Arm] Blood Pressure Mean 111 102 Blood Pressure Mean [Right Arm] Blood Pressure Position [Right Arm] Pulse Oximetry 99 99 Oxygen Delivery Method Room Air Room Air Sepsis Recent Fever Within 48 Hours Sepsis New/Unexplained Change in Mental Status Sepsis Action Taken by Nursing 10/20/21 19:15 10/20/21 19:30 10/20/21 19:45 Temperature Temperature Source Pulse Rate 140 H 140 H 142 H Pulse Rate [Apical] Pulse Rate from SpO2 Sensor Respiratory Rate 13 21 15 Respiratory Effort / Characteristics Respiratory Depth Blood Pressure 126/69 128/73 122/79 Blood Pressure [Right Arm] Blood Pressure Mean 88 91 93 Blood Pressure Mean [Right Arm] Blood Pressure Position [Right Arm] Pulse Oximetry 98 99 99 Oxygen Delivery Method Room Air Room Air Room Air Sepsis Recent Fever Within 48 Hours Sepsis New/Unexplained Change in Mental Status Sepsis Action Taken by Nursing 10/20/21 20:00 10/20/21 20:15 10/20/21 20:30 Temperature Temperature Source Pulse Rate 139 H 136 H 135 H Pulse Rate [Apical] Pulse Rate from SpO2 Sensor Respiratory Rate 13 17 24 Respiratory Effort / Characteristics Respiratory Depth Blood Pressure 131/62 121/74 121/66 Blood Pressure [Right Arm] Blood Pressure Mean 85 89 84 Blood Pressure Mean [Right Arm] Blood Pressure Position [Right Arm] Pulse Oximetry 98 99 98 Oxygen Delivery Method Room Air Room Air Room Air Sepsis Recent Fever Within 48 Hours Sepsis New/Unexplained Change in Mental Status Sepsis Action Taken by Nursing 10/20/21 20:45 10/20/21 21:00 10/20/21 21:15 Temperature Temperature Source Pulse Rate 130 H 130 H 91 H Pulse Rate [Apical] Pulse Rate from SpO2 Sensor Respiratory Rate 17 19 14 Respiratory Effort / Characteristics Respiratory Depth Blood Pressure 121/62 107/80 108/63 Blood Pressure [Right Arm] Blood Pressure Mean 81 89 78 Blood Pressure Mean [Right Arm] Blood Pressure Position [Right Arm] Pulse Oximetry 98 98 98 Oxygen Delivery Method Room Air Room Air Room Air Sepsis Recent Fever Within 48 Hours Sepsis New/Unexplained Change in Mental Status Sepsis Action Taken by Nursing 10/20/21 21:30 10/20/21 22:20 10/20/21 22:45 Temperature Temperature Source Pulse Rate 129 H 108 H 120 H Pulse Rate [Apical] Pulse Rate from SpO2 Sensor Respiratory Rate 18 14 20 Respiratory Effort / Characteristics Respiratory Depth Blood Pressure 111/69 93/68 L 109/81 Blood Pressure [Right Arm] Blood Pressure Mean 83 76 90 Blood Pressure Mean [Right Arm] Blood Pressure Position [Right Arm] Pulse Oximetry 96 96 98 Oxygen Delivery Method Room Air Room Air Room Air Sepsis Recent Fever Within 48 Hours Sepsis New/Unexplained Change in Mental Status Sepsis Action Taken by Nursing 10/20/21 23:00 Temperature Temperature Source Pulse Rate 105 H Pulse Rate [Apical] Pulse Rate from SpO2 Sensor Respiratory Rate 24 Respiratory Effort / Characteristics Respiratory Depth Blood Pressure 114/81 Blood Pressure [Right Arm] Blood Pressure Mean 92 Blood Pressure Mean [Right Arm] Blood Pressure Position [Right Arm] Pulse Oximetry 98 Oxygen Delivery Method Room Air Sepsis Recent Fever Within 48 Hours Sepsis New/Unexplained Change in Mental Status Sepsis Action Taken by Nursing Laboratory Data Result diagrams: 10/20/21 18:17 10/20/21 18:17 Lab Results 10/20/21 10/20/21 10/20/21 Range/Units 18:17 18:17 18:17 WBC 2.30 L (4.8-10.8) K/uL RBC 4.22 (4.2-5.4) M/uL Hgb 11.6 L (12.0-16.0) g/dL Hct 35.9 L (37-47) % MCV 85.1 (80-100) fL MCH 27.5 (25-34) pg MCHC 32.3 (32-36) g/dL RDW Std Deviation 50.7 H (36.4-46.3) fL RDW Coeff of Shima 16.3 H (11.5-14.5) % Plt Count 98 L (130-400) K/uL MPV 10.5 H (7.4-10.4) fL Immature Gran % (Auto) 0.4 % Neut % (Auto) 44.8 % Lymph % (Auto) 44.8 % [place] % (Auto) 9.1 % Eos % (Auto) 0.0 % Baso % (Auto) 0.9 % Neut # (Auto) 1.03 L (1.4-6.5) K/uL Lymph # (Auto) 1.03 L (1.2-3.4) K/uL [place] # (Auto) 0.21 (0.11-0.59) K/uL Eos # (Auto) 0.00 (0-0.5) K/uL Baso # (Auto) 0.02 (0-0.2) K/uL Immature Gran # (Auto) 0.01 (0.00-0.02) K/uL Platelet Estimate Decreased L (Normal) PT 11.5 (9.0-12.0) Seconds INR 1.1 (0.9-1.1) APTT (21.0-31.0) Seconds PTT Ratio Sodium 139 (136-145) mmol/L Potassium 3.7 (3.5-5.1) mmol/L Chloride 106 (98-107) mmol/L Carbon Dioxide 27 (21-32) mmol/L Anion Gap 6 (3-11) BUN 7 (6-23) mg/dl Creatinine 0.60 (0.6-1.2) mg/dl Est Cr Clr Drug Dosing 82.0 ml/min Est GFR ( Amer) 107.0 ml/min Est GFR (Non-Af Amer) 92.4 ml/min BUN/Creatinine Ratio 11.7 (10-20) Glucose 171 H (70-99) mg/dl Calcium 8.8 (8.5-10.1) mg/dl Magnesium 1.6 L (1.7-2.4) mg/dl Total Bilirubin 0.6 (0.2-1.0) mg/dl AST 60 H (13-39) U/L ALT 37 (7-52) U/L Alkaline Phosphatase 121 H (34-104) U/L Troponin I < 0.03 (0-0.04) ng/ml Total Protein 6.9 (6.0-8.3) gm/dl Albumin 3.4 (3.4-5.0) gm/dl Globulin 3.5 (2.5-4.0) gm/dl Albumin/Globulin Ratio 1.0 (0.9-2) Lipase 15 (11-82) U/L TSH (0.300-4.500) uIu/ml SARS-CoV-2, RNA, NAAT (NEGATIVE) 10/20/21 10/20/21 10/20/21 Range/Units 18:17 18:45 18:45 WBC (4.8-10.8) K/uL RBC (4.2-5.4) M/uL Hgb (12.0-16.0) g/dL Hct (37-47) % MCV (80-100) fL MCH (25-34) pg MCHC (32-36) g/dL RDW Std Deviation (36.4-46.3) fL RDW Coeff of Shima (11.5-14.5) % Plt Count (130-400) K/uL MPV (7.4-10.4) fL Immature Gran % (Auto) % Neut % (Auto) % Lymph % (Auto) % [place] % (Auto) % Eos % (Auto) % Baso % (Auto) % Neut # (Auto) (1.4-6.5) K/uL Lymph # (Auto) (1.2-3.4) K/uL [place] # (Auto) (0.11-0.59) K/uL Eos # (Auto) (0-0.5) K/uL Baso # (Auto) (0-0.2) K/uL Immature Gran # (Auto) (0.00-0.02) K/uL Platelet Estimate (Normal) PT (9.0-12.0) Seconds INR (0.9-1.1) APTT 28.8 (21.0-31.0) Seconds PTT Ratio 1.1 Sodium (136-145) mmol/L Potassium (3.5-5.1) mmol/L Chloride (98-107) mmol/L Carbon Dioxide (21-32) mmol/L Anion Gap (3-11) BUN (6-23) mg/dl Creatinine (0.6-1.2) mg/dl Est Cr Clr Drug Dosing ml/min Est GFR ( Amer) ml/min Est GFR (Non-Af Amer) ml/min BUN/Creatinine Ratio (10-20) Glucose (70-99) mg/dl Calcium (8.5-10.1) mg/dl Magnesium (1.7-2.4) mg/dl Total Bilirubin (0.2-1.0) mg/dl AST (13-39) U/L ALT (7-52) U/L Alkaline Phosphatase (34-104) U/L Troponin I (0-0.04) ng/ml Total Protein (6.0-8.3) gm/dl Albumin (3.4-5.0) gm/dl Globulin (2.5-4.0) gm/dl Albumin/Globulin Ratio (0.9-2) Lipase (11-82) U/L TSH 1.138 (0.300-4.500) uIu/ml SARS-CoV-2, RNA, NAAT NEGATIVE (NEGATIVE) Administered Medications Diltiazem HCl 125 mg/ Dextrose 125 mls @ 2.5 mls/hr IV .Q24H PORTIA; Protocol Stop: 11/19/21 18:59 Last Titration: 10/20/21 22:24 Dose: 2.5 mg/hr, 2.5 mls/hr Documented by: [id number] Cosigned by: [id number] Admin: 10/20/21 19:11 Dose: 5 mg/hr, 5 mls/hr Documented by: [id number] Cosigned by: [id number] Heparin Sodium/Dextrose (Heparin Sodium/Dextrose) 25,000 units in 500 mls @ 14 mls/hr IV .Q24H PORTIA; Protocol Stop: 11/19/21 21:14 Last Admin: 10/21/21 00:26 Dose: 700 units/hr, 14 mls/hr Documented by: [id number] Cosigned by: [id number] Discontinued Medications Diltiazem HCl (Diltiazem Hcl 5 Mg/Ml 5 Ml Vial) 15 mg IV NOW STA Stop: 10/20/21 18:48 Last Admin: 10/20/21 19:02 Dose: 15 mg Documented by: [id number] Cosigned by: [id number] Magnesium Sulfate/Dextrose (Magnesium Sulfate / D5w) 1 gm in 100 mls @ 200 mls/hr IV Q30M PORTIA Stop: 10/20/21 20:20 Last Infusion: 10/20/21 20:55 Dose: 0 mls/hr Documented by: [id number] Admin: 10/20/21 20:25 Dose: 200 mls/hr Documented by: [id number] Infusion: 10/20/21 20:23 Dose: 200 mls/hr Documented by: [id number] Admin: 10/20/21 19:53 Dose: 200 mls/hr Documented by: [id number] Sodium Chloride (Nss) 500 mls @ 500 mls/hr IV .Q1H ONE Stop: 10/20/21 20:47 Last Infusion: 10/20/21 22:22 Dose: 0 mls/hr Documented by: [id number] Admin: 10/20/21 21:22 Dose: 500 mls/hr Documented by: [id number] Ioversol (Optiray 320 125ml) 104 ml IV ONCE ONE Stop: 10/20/21 21:58 Last Admin: 10/20/21 21:59 Dose: 104 ml Documented by: [id number] Metoprolol Tartrate (Metoprolol Tartrate 25 Mg Tab) 25 mg PO NOW STA Stop: 10/20/21 19:46 Last Admin: 10/20/21 19:52 Dose: 25 mg Documented by: [id number] Miscellaneous (Stat Iv Infusion Titration Per Protocol) 1 ea N/A NOW STA Stop: 10/20/21 18:48 Last Admin: 10/20/21 19:16 Dose: Not Given Documented by: [id number] Potassium Chloride (Potassium Chloride Crtab 20 Meq Tabcr) 40 meq PO NOW STA Stop: 10/20/21 19:44 Last Admin: 10/20/21 19:52 Dose: 40 meq Documented by: [id number] Imaging Data Radiologist's Impression: Chest X-Ray 10/20/21 17:50 SINGLE VIEW CHEST CLINICAL HISTORY: Atypical chest pain. FINDINGS: An AP, portable, upright chest radiograph is compared to study dated 07/22/2020. The cardiomediastinal silhouette is unremarkable noting atherosclerotic calcification of the thoracic aorta. Chronic interstitial thickening is similar to previous. There is bibasilar scarring/atelectasis. The lungs and pleural spaces are otherwise clear. No pneumothorax is seen. The skeletal structures are osteopenic. The bony thorax is grossly intact. IMPRESSION: No active disease in the chest. ACT 112: Negative or not required by law. Electronically signed by: Bola Leonardo M.D. 10/20/2021 7:17 PM Discharge Plan Visit Data Chief Complaint: Chest Pain Stated Complaint: CHEST PAIN, SWOLLEN FEET ED Provider: David Oh Discharge Problem: Atrial flutter with rapid ventricular response, Thrombocytopenia, Hypomagnesemia, Leg swelling Patient Disposition: Being Evaluated by Hospitalist Forms Stand Alone Forms: [employer] Prescriptions Prescriptions: No Action No Known Home Medications RF: 0 Referrals Referrals: PCP,NO [Physician] -
[2021-10-20] MEDS ORDERED: STAT IV Infusion **Titration per Protocol STA (18:47)
[2021-10-20] MEDS ORDERED: dilTIAZem HCl 5 MG/ML 5 ML VIAL IV STA (18:47)
[2021-10-20 18:57] LABS: INR 1.1 (0.9-1.1); Prothrombin Time 11.5 Seconds (9.0-12.0)
[2021-10-20] MEDS ORDERED: dilTIAZem HCL 125 MG in DEXTROSE 5% 100 ML IV SCH (19:00)
[2021-10-20 19:10] LABS: Troponin I < 0.03 ng/ml (0-0.04)
[2021-10-20 19:11] LABS: Hematocrit (blood only) 35.9 % (37-47); Hemoglobin 11.6 g/dL (12.0-16.0); Mean Corpuscular Hemoglobin 27.5 pg (25-34); Mean Corpuscular Hgb Conc 32.3 g/dL (32-36); Mean Corpuscular Volume 85.1 fL (80-100); Mean Platelet Volume 10.5 fL (7.4-10.4); Platelet Count 98 K/uL (130-400); RDW Coefficient of Variation 16.3 % (11.5-14.5); RDW Standard Deviation 50.7 fL (36.4-46.3); Red Blood Count 4.22 M/uL (4.2-5.4)
[2021-10-20 19:12] LABS: Basophils # (auto) 0.02 K/uL (0-0.2); Basophils % (auto) 0.9 %; Immature Granulocytes # (auto) 0.01 K/uL (0.00-0.02); Immature Granulocytes % (auto) 0.4 %; Lymphocytes # (auto) 1.03 K/uL (1.2-3.4); Lymphocytes % (auto) 44.8 %; Monocytes # (auto) 0.21 K/uL (0.11-0.59); Monocytes % (auto) 9.1 %; Neutrophils # (auto) 1.03 K/uL (1.4-6.5); Neutrophils % (auto) 44.8 %; Platelet Estimate Decreased (Normal)
[2021-10-20 19:14] LABS: Alanine Aminotransferase 37 U/L (7-52); Albumin Level 3.4 gm/dl (3.4-5.0); Alkaline Phosphatase 121 U/L (34-104); Anion Gap 6 (3-11); Aspartate Aminotransferase 60 U/L (13-39); BUN Creatinine Ratio 11.7 (10-20); Bilirubin,Total 0.6 mg/dl (0.2-1.0); Blood Urea Nitrogen 7 mg/dl (6-23); Calcium 8.8 mg/dl (8.5-10.1); Carbon Dioxide 27 mmol/L (21-32); Chloride 106 mmol/L (98-107); Est GFR (Non-African American) 92.4 ml/min; Globulin 3.5 gm/dl (2.5-4.0); Glucose 171 mg/dl (70-99); Lipase 15 U/L (11-82); Magnesium 1.6 mg/dl (1.7-2.4); Potassium 3.7 mmol/L (3.5-5.1); Sodium 139 mmol/L (136-145); Total Protein 6.9 gm/dl (6.0-8.3)
--- NOTE | 2021-10-20 19:19 | XRay Report ---
SINGLE VIEW CHEST CLINICAL HISTORY: Atypical chest pain. FINDINGS: An AP, portable, upright chest radiograph is compared to study dated 07/22/2020. The cardio mediastinal silhouette is unremarkable noting atherosclerotic calcification of the thoracic aorta. Ch ronic interstitial thickening is similar to previous. There is bibasilar scarring/atelectasis. The aneta ngs and pleural spaces are otherwise clear. No pneumothorax is seen. The skeletal structures are oste openic. The bony thorax is grossly intact. IMPRESSION: No active disease in the chest. ACT 112: Negative or not required by law. Electronically signed by: Bola Leonardo M.D. 10/20/2021 7:17 PM
[2021-10-20] MEDS ORDERED: POTASSIUM CHLORIDE CRTAB 20 MEQ TABCR PO STA (19:43)
[2021-10-20] MEDS ORDERED: METOPROLOL TARTRATE 25 MG TAB PO STA (19:45)
[2021-10-20] MEDS ORDERED: SODIUM CHLORIDE 0.9% 500 ML IV ONE (19:48)
[2021-10-20] MEDS: MAGNESIUM SULFATE / D5W 1 GM/100 ML BAG IV SCH ×2 (19:53→20:25)
[2021-10-20 20:00] LABS: Partial Thromboplastin Ratio 1.1; Partial Thromboplastin Time 28.8 Seconds (21.0-31.0)
--- NOTE | 2021-10-20 20:28 | History & Physical Report ---
Date of Service October 20, 2021 Assessment & Plan (1) Atrial flutter with rapid ventricular response: (2) Hypomagnesemia: (3) Leg swelling: (4) Pancytopenia: (5) Tobacco abuse: Plan: This is a 71-year-old female who has significant past medical history of atrial fibrillation noncompliant with anticoagulation, tobacco abuse, chronic thrombocytopenia, hepatitis C antibody positive who presents to ED due to left leg swelling x1 day. A flutter with RVR hx of Afib x 1 in 07/2020 [id number] 2 (age, F) Started on Diltiazem gtt in ED IV heparin R/o PE consult cardiology TSH ordered last echo 07/2020 EF 70%, mild aortic sclerosis pt noncompliant with eliquis and metoprolol as OP. States Eliquis was $500, will likely need to look into cheaper options or warfarin further assessment and treatment plan as per Dr. Funez addendum Hypomagnesemia replete Pancytopenia previously just thrombocytopenia now all cell lines low recommend hematology eval at outpatient denies alcohol use Tobacco abuse nicotine patch encourage smoking cessation Hyperglycemia A1C ordered DVT ppx: IV Heparin Dispo: PCU PCP: Dr. Deng - pt wishes to switch PCP FULL CODE Pt was seen and examined in collaboration with Dr. Funez, please see addendum History of Present Illness Chief Complaint: L leg swelling x 1 day. Primary Care Provider: None Former PCP was Dr. Deng of [facility]. Patient contemplating on finding another provider on discharge. This is a 71-year-old female who has significant past medical history of atrial fibrillation noncompliant with anticoagulation, tobacco abuse, chronic thrombocytopenia, hepatitis C antibody positive who presents to ED due to left leg swelling x1 day. She states when she woke up this morning her left leg was significantly more swollen than the right. She denies any pain in the left leg, redness, pain in calf or recent travel. She denies any recent illness, fever, chills, sweats, lightheadedness, dizziness, chest pain, shortness of breath, cough, hemoptysis, nausea, vomiting, abdominal pain, change in her bowel or urinary habits. She is a 1 pack/day smoker. She denies any alcohol use. She does have prior history of A. fib diagnosed in July 2020. At that time she presented to the hospital with significant palpitations. She currently denies palpitations but does feel anxious. She was discharged home on Eliquis and metoprolol. She is currently not taking Eliquis or metoprolol and states, "I probably never really took it after being discharged." She states Eliquis was, "$500." In ED patient remained hemodynamically stable although she was significantly tachycardic sustaining in the 140s. Her lab work was notable for thrombocytopenia at 98, low hemoglobin hematocrit 11.6 and 35.9, DBC 2.30, mag 1.6, AST 60. In ED she received IV diltiazem. Allergies Allergy/AdvReac Type Severity Reaction Status Date / Time No Known Allergies Allergy Unverified 10/20/21 18:09 Home Medications Medication Instructions Recorded Confirmed Type No Known Home Medications 10/20/21 10/20/21 History Past Med/Surg History Medical History (Updated 10/20/21 @ 20:23 by Saida Gurrola PA-C) Atrial fibrillation with RVR Depression with anxiety Elevated hemoglobin Hypokalemia Sleep disorder Tobacco abuse Surgical History No history of previous surgery Family History Sister Hx of CABG Father Coronary heart disease Stroke Mother Stroke Coronary heart disease Social History (Updated 10/20/21 @ 20:21 by Saida Gurrola PA-C) Smoking Status: Current every day smoker Tobacco Type: Cigarettes packs per day: 1; Years Smoked: 50; Cigarettes Per Day: 1 ppd; Second Hand Exposure: Yes; Hx Alcohol Use: No Hx Substance Use: No Preferred Language: Kenyan Communication Ability: Effective 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 Beliefs That Will Affect Care: None marital status: Single Current Living Situation: Significant Other Feels Safe at Home: Yes Assistive Devices: None Review of Systems Review of Systems: All systems reviewed & are unremarkable except as noted in HPI & below Physical Exam Physical Exam: Constitutional: WD/WN, vitals as above, NAD, sitting up in bed, pleasant, conversing easily Head: Normocephalic, Atraumatic Eyes: PERRL, conjunctivae normal, anicteric sclerae ENMT: external ear and nose normal, oropharynx normal Neck: trachea midline, no thyromegaly normal visual inspection Respiratory: normal respiratory effort, lungs clear to auscultation, no wheeze, rales, rhonchi. Normal insp/exp effort, no accessory muscle use Cardiovascular: Tachycardic rate, regular rhythm, no murmur, left lower extremity +2 edema, right lower extremity trace edema Vessels: no JVD or carotid bruit Chest: normal inspection of chest Abdomen: normal bowel sounds, soft, nontender, no hepatosplenomegaly Musculoskeletal: no cyanosis or clubbing, extremities motor strength 5/5 Skin: no rashes, warm and dry normal turgor Neurologic: PERRL, EOMI, accommodation nl, no face palsy, no dysarthria CN's II-XI intact bilaterally and moves all extremities Psychiatric: A+Ox3, euthymic affect Lymphatic: no cervical or axillary lymphadenopathy : deferred Results & Data Results & Data ([facility]) Vital Signs (Past 12 Hours) Vital Signs Temp Pulse Pulse Resp BP BP Pulse Ox 10/20/21 19:00 141 H 14 137/85 99 10/20/21 18:46 140 H 21 145/94 H 99 10/20/21 18:40 139 H 9 L 10/20/21 18:30 140 H 16 10/20/21 18:20 139 H 14 100 10/20/21 18:17 139 H 13 100 10/20/21 18:12 141 H 19 152/79 H 95 10/20/21 17:47 36.4 C L 142 H 18 159/70 H 97 Diagnostic Findings Chest X-Ray 10/20/21 17:50 SINGLE VIEW CHEST CLINICAL HISTORY: Atypical chest pain. FINDINGS: An AP, portable, upright chest radiograph is compared to study dated 07/22/2020. The cardiomediastinal silhouette is unremarkable noting atherosclerotic calcification of the thoracic aorta. Chronic interstitial thickening is similar to previous. There is bibasilar scarring/atelectasis. The lungs and pleural spaces are otherwise clear. No pneumothorax is seen. The skeletal structures are osteopenic. The bony thorax is grossly intact. IMPRESSION: No active disease in the chest. ACT 112: Negative or not required by law. Electronically signed by: Bola Leonardo M.D. 10/20/2021 7:17 PM Medications Administered Medication List Diltiazem HCl 125 mg/ Dextrose 125 mls @ 5 mls/hr IV .Q24H [facility]; Protocol Stop: 11/19/21 18:59 Last Admin: 10/20/21 19:11 Dose: 5 mg/hr, 5 mls/hr Documented by: [id number] Cosigned by: [id number] Discontinued Medications Diltiazem HCl (Diltiazem Hcl 5 Mg/Ml 5 Ml Vial) 15 mg IV NOW STA Stop: 10/20/21 18:48 Last Admin: 10/20/21 19:02 Dose: 15 mg Documented by: [id number] Cosigned by: [id number] Magnesium Sulfate/Dextrose (Magnesium Sulfate / D5w) 1 gm in 100 mls @ 200 mls/hr IV Q30M [facility] Stop: 10/20/21 20:20 Last Admin: 10/20/21 19:53 Dose: 200 mls/hr Documented by: [id number] Metoprolol Tartrate (Metoprolol Tartrate 25 Mg Tab) 25 mg PO NOW STA Stop: 10/20/21 19:46 Last Admin: 10/20/21 19:52 Dose: 25 mg Documented by: [id number] Miscellaneous (Stat Iv Infusion Titration Per Protocol) 1 ea N/A NOW STA Stop: 10/20/21 18:48 Last Admin: 10/20/21 19:16 Dose: Not Given Documented by: [id number] Potassium Chloride (Potassium Chloride Crtab 20 Meq Tabcr) 40 meq PO NOW STA Stop: 10/20/21 19:44 Last Admin: 10/20/21 19:52 Dose: 40 meq Documented by: [id number] ECG Rate (beats per minute): 141 Rhythm: atrial flutter Additional Comments: 221 AV conduction atrial flutter, inferior T wave inversion, lateral T wave inversion COVID-19 Results Results COVID-19 Adm Lab Results: RBC 4.32 M/uL (4.2-5.4) 10/21/21 WBC 2.55 K/uL (4.8-10.8) L 10/21/21 Hgb 11.7 g/dL (12.0-16.0) L 10/21/21 Hct 36.8 % (37-47) L 10/21/21 Plt Count 95 K/uL (130-400) L 10/21/21 Neutrophils (%) (Auto) 38.0 % 10/21/21 Lymphocytes (%) (Auto) 46.7 % 10/21/21 Monocytes # (Auto) 0.37 K/uL (0.11-0.59) 10/21/21 Eosinophils # (Auto) 0.00 K/uL (0-0.5) 10/21/21 Immature Granulocyte % (Auto) 0.0 % 10/21/21 Neutrophils # (Auto) 0.97 K/uL (1.4-6.5) L* 10/21/21 Lymphocytes # (Auto) 1.19 K/uL (1.2-3.4) L 10/21/21 Monocytes # (Auto) 0.37 K/uL (0.11-0.59) 10/21/21 Eosinophils # (Auto) 0.00 K/uL (0-0.5) 10/21/21 Basophils # (Auto) 0.02 K/uL (0-0.2) 10/21/21 Immature Granulocyte # (Auto) 0.00 K/uL (0.00-0.02) 10/21/21 Giant Platelets 1+ 10/21/21 Na 139 mmol/L (136-145) 10/21/21 K 4.3 mmol/L (3.5-5.1) 10/21/21 Cl 109 mmol/L (98-107) H 10/21/21 CO2 26 mmol/L (21-32) 10/21/21 Anion Gap 4 (3-11) 10/21/21 BUN 5 mg/dl (6-23) L 10/21/21 Creatinine 0.54 mg/dl (0.6-1.2) L 10/21/21 BUN/Creatinine Ratio 9.3 (10-20) L 10/21/21 Glucose Level 88 mg/dl (70-99) 10/21/21 Ca 8.3 mg/dl (8.5-10.1) L 10/21/21 Total Bilirubin 0.7 mg/dl (0.2-1.0) 10/21/21 AST/SGOT 49 U/L (13-39) H 10/21/21 ALT/SGPT 31 U/L (7-52) 10/21/21 Alkaline Phosphatase 88 U/L (34-104) 10/21/21 Total Protein 6.0 gm/dl (6.0-8.3) 10/21/21 Albumin 3.0 gm/dl (3.4-5.0) L 10/21/21 Globulin 3.0 gm/dl (2.5-4.0) 10/21/21 Albumin/Globulin Ratio 1.0 (0.9-2) 10/21/21 Troponin I < 0.03 ng/ml (0-0.04) 10/20/21 Ferritin 79.6 ng/ml (8-388) 10/21/21 PTT 43.5 Seconds (21.0-31.0) H 10/21/21 INR 1.1 (0.9-1.1) 10/20/21 SARS-CoV-2, RNA, NAAT NEGATIVE (NEGATIVE) 10/20/21 Chest X-Ray 10/20/21 Code Status & VTE Plan Code Status Full code Supervising Physician Co-Signing Physician Notes IM ATTENDING : Patient seen and examined. History obtained from patient, family, and records. Preceding documentation by Ms. Saida Gurrola PA-C reviewed. In addition : CT chest initially: No pulmonaryembolus. No aortic aneurysmor dissection. Mild haziness of the lungs mayrepresent pulmonaryedema and/or atypical infection. The heart size iswithin normal limits. No pathologically enlarged lymph nodes. No fracture. Incidentallynoted cirrhosis. RLE venous ultrasound read pending: FINAL ASSESSMENT AND PLAN as follows : New onset atrial flutter past history A. fib Secondary to medication noncompliance Cirrhosis incidental finding on CT hx HCV antibody positivity during confinement last 2019 Patient with HCV disease currently contemplating outpatient treatment. Patient unable to complete recommended outpatient lab work-up from 2019. Pancytopenia likely secondary to liver disease New onset anemia possibly from episodic hematochezia from hemorrhoidal bleed as per patient account Possible myeloma lesion on outpatient brain MRI 2014 Anxiety/mood disorder, at baseline, patient currently not on maintenance medications Hyperglycemia rule out DM Ongoing tobacco abuse PCU Initiate beta-елена for rate control Wean off Cardizem drip Low-dose IV heparin for thromboembolic prophylaxis given episodic hemorrhoidal bleed. TTE, Cardiology consult Re: Atrial flutter Check HCVRNA with a.m. labs, outpatient GI consult for HCV/cirrhosis work- up/management Peripheral blood smear for pancytopenia Outpatient Hematology consultation Anemia work-up Check hemoglobin A1c DVT prophylaxis. IV heparin Full code Text document was generated using [employer] voice recognition software. It may contain grammatical or spelling errors. Kindly contact undersigned for clarification of any documentation item in question.
[2021-10-20] MEDS ORDERED: Heparin IV Adult Wt-Based Low-Dose *NO* Bolus Protocol IV STA (21:10)
[2021-10-20] MEDS ORDERED: HEPARIN SODIUM/DEXTROSE 25,000 UNITS/500 ML BAG IV SCH (21:15)
[2021-10-20] MEDS ORDERED: OPTIRAY 320 125ml IV ONE (21:57)
[2021-10-20] MEDS ORDERED: NICOTINE 14 MG/24 HR PATCH TD STA (22:47)
[2021-10-20] MEDS ORDERED: ACETAMINOPHEN 325 MG TAB PO PRN (22:52)
[2021-10-21] MEDS ORDERED: LORazepam 0.25 MG/0.5 ML VIAL IV PRN (01:21)
[2021-10-21] MEDS ORDERED: PROMETHAZINE HCL 12.5 MG in SODIUM CHLORIDE 0.9% 50 ML IV PRN (01:21)
[2021-10-21] MEDS ORDERED: traMADol HCL 50 MG TABLET PO PRN (01:21)
[2021-10-21] MEDS ORDERED: METOPROLOL TARTRATE 1 MG/ML VIAL IV STA (01:36)
[2021-10-21 04:14] LABS: Hematocrit (blood only) 36.8 % (37-47); Hemoglobin 11.7 g/dL (12.0-16.0); Mean Corpuscular Hemoglobin 27.1 pg (25-34); Mean Corpuscular Hgb Conc 31.8 g/dL (32-36); Mean Corpuscular Volume 85.2 fL (80-100); RDW Coefficient of Variation 16.3 % (11.5-14.5); RDW Standard Deviation 51.8 fL (36.4-46.3); Red Blood Count 4.32 M/uL (4.2-5.4); White Blood Count 2.55 K/uL (4.8-10.8)
[2021-10-21 04:23] LABS: Partial Thromboplastin Ratio 1.7; Partial Thromboplastin Time 43.5 Seconds (21.0-31.0)
[2021-10-21 04:28] LABS: Mean Platelet Volume 10.6 fL (7.4-10.4); Platelet Count 95 K/uL (130-400)
[2021-10-21 04:52] LABS: BUN Creatinine Ratio 9.3 (10-20); Bilirubin,Total 0.7 mg/dl (0.2-1.0); Calcium 8.3 mg/dl (8.5-10.1); Creatinine Clr Calc Pharmacy 91.1 ml/min; Est GFR (African American) 110.8 ml/min; Est GFR (Non-African American) 95.6 ml/min; Magnesium 2.1 mg/dl (1.7-2.4); Potassium 4.3 mmol/L (3.5-5.1)
[2021-10-21 04:53] LABS: Ferritin 79.6 ng/ml (8-388)
[2021-10-21 05:14] LABS: Basophils # (auto) 0.02 K/uL (0-0.2); Basophils % (auto) 0.8 %; Lymphocytes # (auto) 1.19 K/uL (1.2-3.4); Lymphocytes % (auto) 46.7 %; Monocytes # (auto) 0.37 K/uL (0.11-0.59); Monocytes % (auto) 14.5 %; Neutrophils # (auto) 0.97 K/uL (1.4-6.5); Reticulocyte % 1.3 % (0.5-2.0); Reticulocytes # 0.05 10^6/uL (0.02-0.10)
[2021-10-21 05:15] LABS: Giant Platelets 1+
--- NOTE | 2021-10-21 05:21 | Ultrasound Report ---
ULTRASOUND LEFT LOWER EXTREMITY VENOUS CLINICAL HISTORY: Left lower extremity edema. COMPARISON STUDY: No priors. TECHNIQUE: Real-time, grayscale, and color Doppler sonography of the deep veins of the left lower ext remity was performed from the inguinal crease to the calf. Compression and augmentation were utilized . FINDINGS: There is no sonographic evidence of deep venous thrombosis identified in the left lower ext remity. The common femoral, superficial femoral, and popliteal veins are patent and normally compress ible. The greater saphenous vein and the profunda femoris vein at the junction with the common femora l vein are clear. The visualized calf veins are patent. A small and minimally complex popliteal cyst measures 3.9 x 1.3 x 2.7 cm. IMPRESSION: 1. There is no sonographic evidence of deep venous thrombosis identified in the left lower extremity. 2. Popliteal cyst. ACT 112: Negative or not required by law. Electronically signed by: Bola Leonardo M.D. 10/21/2021 5:20 AM
[2021-10-21 06:06] LABS: Estimated Average Glucose 108 mg/dl; Hemoglobin A1C 5.4 % (4.5-5.6)
[2021-10-21] MEDS ORDERED: METOPROLOL TARTRATE 50 MG TAB PO SCH (06:15)
--- NOTE | 2021-10-21 07:27 | CT Scan Report ---
CT angio chest PE protocol CT DOSE: 376.62 mGy.cm HISTORY: 71 years-old Female with chest discomfort. Acute atypical chest pain with shortness of ilene ath TECHNIQUE: Multiple CTA images of the chest were obtained after the intravenous administration of 104 ml Optiray. Coronal and sagittal MIPS were obtained from the axial data set and were submitted for review. All measurements were obtained according to NASCET criteria. A dose lowering technique was u tilized adhering to the principles of ALARA. COMPARISON: Chest radiograph of same day FINDINGS: CTA: The heart is upper limits of normal in size. No pericardial effusion. Mild coronary artery calcificat ions. There is atherosclerosis of the thoracic aorta with patency of the imaged great vessels. There is suboptimal opacification of the subsegmental pulmonary arterial branches. No filling defects ident ified to suggest thromboembolic disease. CT CHEST: No thyroid nodule. No pathologically enlarged lymph nodes of the chest. There is mild circumferential wall thickening of the esophagus with periesophageal edema, most pronounced within the mid segment. Distal paraesophageal varices. Varicosities of the upper abdomen are noted with cirrhotic liver. Hepa tic steatosis. Splenomegaly. Distended gallbladder. No pneumothorax or pleural effusion. Bilateral bronchial wall thickening is noted in conjunction with bilateral groundglass densities in mosaic attenuation. Mild linear subsegmental scarring/atelectasis of the right middle lobe and lingula. No overt pulmonary edema or lobar airspace consolidation. Trac heocele of the right tracheoesophageal recess on image 254 series 4. Unremarkable soft tissues. There is no acute fracture. Degenerative changes of the shoulders and spin e. IMPRESSION: 1. No pulmonary emboli. 2. Bronchial wall thickening suggestive of bronchitis or reactive airway disease. Mild bilateral atel ectasis with air trapping. 3. Wall thickening throughout the majority of the esophagus with periesophageal edema suggestive of e sophagitis. Additionally, there are distal esophageal varices. 4. Cirrhosis with evidence of portal venous hypertension. ACT 112: Negative or not required by law. The above report was generated using voice recognition software. It may contain grammatical, syntax o r spelling errors. Electronically signed by: Jay Moncada M.D. 10/21/2021 7:26 AM
[2021-10-21 07:51] LABS: Partial Thromboplastin Ratio 1.1; Partial Thromboplastin Time 29.1 Seconds (21.0-31.0)
[2021-10-21] MEDS ORDERED: NICOTINE 14 MG/24 HR PATCH TD SCH (09:00)
[2021-10-21] MEDS ORDERED: METOPROLOL TARTRATE 25 MG TAB PO SCH ×2 (09:00→11:45)
[2021-10-21] MEDS ORDERED: HEPARIN SOD (PORCINE) 1000 UNIT/ML ONE (09:09)
[2021-10-21] MEDS ORDERED: PANTOprazole 40 MG TAB PO SCH (09:15)
--- NOTE | 2021-10-21 11:09 | Cardiology Consultation ---
Date of Consultation October 21, 2021 Assessment & Plan (1) Atrial flutter with rapid ventricular response: (2) Pancytopenia: (3) Cirrhosis: (4) Hepatitis C antibody positive in blood: (5) Hypomagnesemia: (6) Leg swellin) Atrial flutter with rapid ventricular response: -Patient previously seen in July, for an episode of atrial fibrillation, converted to sinus rhythm with IV diltiazem. -Presents with atrial flutter, rapid ventricular spots, duration unknown, as patient did not have a subjective appreciation for having tachycardia. She once again converted to sinus rhythm with IV diltiazem. -Per review of her chart, she had been seen by the undersigned and post hospital follow-up on 1 occasion in July,, and never returned. She states that she is not taking Eliquis due to excessive cost, $500 / month, however she did not report a problem with this in 2020. -I discussed options with regards to anticoagulation with her. She is hesitant to go on Coumadin due to need for frequent blood draws, and at present, I would consider her to be an unreliable patient for anticoagulation. Her [id number] score is 2 for female sex and age > 65, placing her at a low to moderate risk of cardioembolic stroke. At present however given her thrombocytopenia, and relative anemia with hemoglobin of 15.7 noted in 2020, down to 11.7 today I feel the benefits of anticoagulation are outweighed by the risks, until further follow-up can be pursued. As noted, her CT angiogram reveals evidence of esophageal varices, another potential reason to hold off on anticoagulation. Most recent treatment guidelines suggest that the prophylactic benefit of low-dose aspirin in terms of preventing cardioembolic stroke in the setting of paroxysmal atrial fibrillation/flutter is negligible, therefore treatment aspirin no longer typically recommended. (2) Pancytopenia: -This is new compared to previously. -No iron deficiency noted on iron studies. (3) Cirrhosis: -Patient noted to have positive hepatitis C antibody on screening in 2019. -Her CT of the chest reveals stigmata of hepatic cirrhosis including portal venous congestion, esophageal varices. -Outpatient follow-up recommended (4) Hepatitis C antibody positive in blood: -As noted above (5) Hypomagnesemia: -Resolved post oral replacement (6) Left leg edema -Venous duplex reveals no left lower extremity DVT. -Her swelling is very minimal on exam. -Perhaps related to venous insufficiency, or portal hypertension related to liver disease. -Future considerations include perhaps starting a loop diuretic or low-dose spironolactone, however her systolic blood pressure is just about 100 mmHg, and given the risk of hypotension and electrolyte abnormalities, I recommend holding off on this until stable outpatient follow-up noted. Summary: As noted, patient was prescribed metoprolol tartrate 25 mg twice daily along with Eliquis in 2019. She was seen in hospital follow-up on 1 occasion, did not follow-up subsequently. She has not been on either medication in the interim. Patient is extremely eager for discharge. Recommend discharging her on metoprolol tartrate 25 mg twice daily. Risks of anticoagulation are felt to outweigh benefits at present. Recommend follow-up to establish with new primary care, hepatology, and cardiology. History of Present Illness Attending Physician: Manuel Cruz MD History of Present Illness Yani Kumari is a 71-year-old female seen in cardiology consultation per the request of Dr. Funez for the evaluation of atrial flutter with rapid ventricular response. Patient seen and examined in the emergency room, B 11 -B , accompanied by her significant other. She initially presented due to concerns of left lower extremity edema. She was however found to be in atrial flutter with rapid ventricular response at 141 bpm with diffuse nonspecific T wave flattening. Compared to her previous tracing in July,, atrial flutter has replaced sinus rhythm. She had previously been admitted in July 2020 with findings of newly recognized atrial fibrillation. At that time she converted to sinus rhythm while on an IV diltiazem infusion. The patient denies any recent chest discomfort or shortness of breath. She was supposed to be n.p.o. until assessed by cardiology this morning, the patient's nurse however reports to me that the patient has eaten 2 candy bars. There is a partially eaten candy bar noted at the bedside. Repeat EKG performed this morning at 10:07 AM reveals sinus rhythm at 82 bpm. At present, the patient feels well, and she is eager for discharge. Family History: She notes her sister who is 3 years older than her had coronary artery bypass grafting Social History: She is a longtime cigarette smoker, she smokes a pack of cigarettes per day. 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 Allergies Allergy/AdvReac Type Severity Reaction Status Date / Time No Known Allergies Allergy Unverified 10/20/21 18:09 Home Medications Medication Instructions Recorded Confirmed Type No Known Home Medications 10/20/21 10/20/21 History Patient History Medical History (Updated 10/21/21 @ 11:32 by Chinmay Martin DO) Atrial fibrillation with RVR Depression with anxiety Elevated hemoglobin Hypokalemia Sleep disorder Tobacco abuse Surgical History No history of previous surgery Family History Sister Hx of CABG Father Coronary heart disease Stroke Mother Stroke Coronary heart disease Social History Smoking Status: Current every day smoker Tobacco Type: Cigarettes packs per day: 1; Years Smoked: 50; Cigarettes Per Day: 1 ppd; Second Hand Exposure: Yes; Hx Alcohol Use: Yes Alcohol type: beer Hx Substance Use: No Preferred Language: Khmer Communication Ability: Effective 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 Beliefs That Will Affect Care: None marital status: Single Current Living Situation: Significant Other Feels Safe at Home: Yes Safety Concerns: Feels Safe At This Time Assistive Devices: None Review of Systems Review of Systems: All systems reviewed & are unremarkable except as noted in HPI & below Physical Exam Physical Exam: Temp Pulse Resp BP Pulse Ox 36.4 C L 88 14 103/64 96 10/20/21 17:47 10/21/21 10:10 10/21/21 11:00 10/21/21 11:00 10/21/21 11:00 Constitutional: no acute distress Respiratory: normal respiratory effort, lungs clear to auscultation Cardiovascular: Rate/Rhythm: regular rate and regular rhythm Heart Sounds: no murmur Extremities: + edema (Trace to mild left lower extremity edema) Gastrointestinal (Abdomen): normal bowel sounds, soft, nontender, no hepatosplenomegaly Neurologic: PERRL, EOMI, accommodation nl, no face palsy, no dysarthria Results & Data ([facility]) Diagnostic Findings Echocardiogram performed today 10/21/2021 to and reviewed apparently, mild concentric left ventricular hypertrophy present Normal left ventricular wall motion LVEF 55 to 60%, normal Mild left atrial dilatation Mild aortic valve sclerosis without stenosis Mild mitral annular calcification without mitral stenosis or mitral regurgitation Left ventricular diastolic function is abnormal, however not graded to do the presence of limitations in the Doppler signal. Summary of radiology report of CT angiogram chest: No pulmonary emboli Bronchial thickening suggestive of bronchitis Wall thickening throughout the majority of the esophagus with periesophageal edema suggestive of esophagitis, additionally, esophageal varices noted Evidence of cirrhosis with portal venous hypertension
--- NOTE | 2021-10-21 11:51 | Hospitalist Progress Note ---
Date of Service October 21, 2021 Assessment & Plan (1) Atrial flutter with rapid ventricular response: (2) Hypomagnesemia: (3) Leg swelling: (4) Pancytopenia: (5) Tobacco abuse: Plan: Patient is a 71 yr female who has significant past medical history of atrial f ibrillation noncompliant with anticoagulation, tobacco abuse, chronic thrombocytopenia, hepatitis C antibody positive who presents to ED due to left leg swelling x1 day. A flutter with RVR H/O Afib in 07/2020 [id number] 2 TSH normal Previously on Eliquis but was not compliant secondary to the cost Patient did not follow-up with cardiology since 2019 Spontaneously converted to sinus while on IV diltiazem IV diltiazem discontinued H/O Thrombocytopenia, anemia and noncompliance to anticoagulation and metoprolol, esophageal varices--risks overweigh benefits for long-term anticoagulation Started on metoprolol 25 mg twice daily Appreciate cardiology input Advised to follow-up with cardiology upon discharge Hypomagnesemia replete and Monitor Esophagitis Started on PPI Pancytopenia H/O Thrombocytopenia H/O hepatitis C, cirrhosis CT suggestive of hepatic cirrhosis, portal venous congestion and esophageal varices Advised to follow-up with gastroenterology as outpatient Tobacco abuse Nicotine patch encourage smoking cessation Hyperglycemia A1C 5.4 Leg Edema Likely secondary to cirrhosis/venous insufficiency Venous Doppler negative for DVT DVT Px: IV Heparin Code Status FULL CODE Admission and Anticipated Discharge Date Admission Date: October 20, 2021 Subjective And is seen and examined at bedside Patient spontaneously converted to sinus Offers no complaints Denies any chest pain, shortness of breath, dizziness, nausea, abdominal pain Eager to get discharged Discussed with cardiology today Review of Systems Review of Systems: All systems reviewed & are unremarkable except as noted in Subjective Physical Exam Physical Exam: Physical Exam: Vitals signs as noted above General Appearance:Moderately built and nourished, no apparent distress Head: normocephalic, Atraumatic Eyes: normal inspection, EOMI Neck: supple, Trachea midline Respiratory/Chest: Decreased breath sounds, CTA, No accessory muscle use Cardiovascular: S1, S2, No murmur Abdomen/GI:Soft, Non tender, Bowel sounds present Extremities/Musculoskeletal:normal inspection, LE edema Neurologic/Psych:AAOX3, grossly no focal neurological deficits Skin: normal color, warm Results & Data Results & Data ([facility]) Vital Signs (Past 12 Hours) Vital Signs Temp Pulse Pulse Resp BP BP Pulse Ox 10/21/21 11:00 14 103/64 96 10/21/21 10:30 18 90 10/21/21 10:10 88 14 98 10/21/21 10:00 36.5 C 81 19 112/56 L 96 10/21/21 09:03 80 28 H 112/56 L 99 10/21/21 09:00 84 17 94 10/21/21 08:00 81 16 99/58 L 10/21/21 07:30 79 10 L 91/61 L 10/21/21 07:00 103 H 11 L 111/56 L 96 10/21/21 06:30 94 H 14 98/63 L 95 10/21/21 06:00 110 H 25 H 104/77 96 10/21/21 05:00 127 H 14 123/75 96 10/21/21 04:30 131 H 23 98/69 L 95 10/21/21 04:00 120 H 16 111/77 96 10/21/21 03:30 116 H 17 138/69 95 10/21/21 03:00 120 H 14 115/82 95 10/21/21 02:30 124 H 13 107/77 96 10/21/21 02:00 102 H 12 106/73 96 10/21/21 01:56 131 H 112/71 10/21/21 01:30 119 H 14 112/71 96 10/21/21 01:00 130 H 20 120/75 98 10/21/21 00:30 103 H 20 100/79 95 10/21/21 00:04 131 H 15 100/82 97 Laboratory Results Short CBC 10/20/21 10/21/21 Range/Units 18:17 03:51 WBC 2.30 L 2.55 L (4.8-10.8) K/uL Hgb 11.6 L 11.7 L (12.0-16.0) g/dL Hct 35.9 L 36.8 L (37-47) % Plt Count 98 L 95 L (130-400) K/uL BMP 10/20/21 10/21/21 18:17 03:51 Sodium 139 139 Potassium 3.7 4.3 Chloride 106 109 H Carbon Dioxide 27 26 BUN 7 5 L Creatinine 0.60 0.54 L Glucose 171 H 88 Calcium 8.8 8.3 L Cardiac Enzymes 01/13/22 Range/Units 18:17 Troponin I < 0.03 (0-0.04) ng/ml Liver Function 10/20/21 10/21/21 Range/Units 18:17 03:51 Total Bilirubin 0.6 0.7 (0.2-1.0) mg/dl AST 60 H 49 H (13-39) U/L ALT 37 31 (7-52) U/L Alkaline Phosphatase 121 H 88 (34-104) U/L Albumin 3.4 3.0 L (3.4-5.0) gm/dl
--- NOTE | 2021-10-21 15:25 | Discharge Summary ---
Date of Service October 21, 2021 Admission HPI Per Admitting Provider This is a 71-year-old female who has significant past medical history of atrial fibrillation noncompliant with anticoagulation, tobacco abuse, chronic thrombocytopenia, hepatitis C antibody positive who presents to ED due to left leg swelling x1 day. She states when she woke up this morning her left leg was significantly more swollen than the right. She denies any pain in the left leg, redness, pain in calf or recent travel. She denies any recent illness, fever, chills, sweats, lightheadedness, dizziness, chest pain, shortness of breath, cough, hemoptysis, nausea, vomiting, abdominal pain, change in her bowel or urinary habits. She is a 1 pack/day smoker. She denies any alcohol use. She does have prior history of A. fib diagnosed in July 2020. At that time she presented to the hospital with significant palpitations. She currently denies palpitations but does feel anxious. She was discharged home on Eliquis and metoprolol. She is currently not taking Eliquis or metoprolol and states, "I probably never really took it after being discharged." She states Eliquis was, "$500." In ED patient remained hemodynamically stable although she was significantly tachycardic sustaining in the 140s. Her lab work was notable for thrombocytopenia at 98, low hemoglobin hematocrit 11.6 and 35.9, DBC 2.30, mag 1.6, AST 60. In ED she received IV diltiazem. Admission Exam Per Admitting Provider Physical Exam Physical Exam: Constitutional: WD/WN, vitals as above, NAD, sitting up in bed, pleasant, conversing easily Head: Normocephalic, Atraumatic Eyes: PERRL, conjunctivae normal, anicteric sclerae ENMT: external ear and nose normal, oropharynx normal Neck: trachea midline, no thyromegaly normal visual inspection Respiratory: normal respiratory effort, lungs clear to auscultation, no wheeze, rales, rhonchi. Normal insp/exp effort, no accessory muscle use Cardiovascular: Tachycardic rate, regular rhythm, no murmur, left lower extremity +2 edema, right lower extremity trace edema Vessels: no JVD or carotid bruit Chest: normal inspection of chest Abdomen: normal bowel sounds, soft, nontender, no hepatosplenomegaly Musculoskeletal: no cyanosis or clubbing, extremities motor strength 5/5 Skin: no rashes, warm and dry normal turgor Neurologic: PERRL, EOMI, accommodation nl, no face palsy, no dysarthria CN's II-XI intact bilaterally and moves all extremities Psychiatric: A+Ox3, euthymic affect Lymphatic: no cervical or axillary lymphadenopathy : deferred Principal Diagnosis Atrial flutter with rapid ventricular response Hypomagnesemia Pancytopenia Leg edema Esophagitis Tobacco abuse Cirrhosis Discharge Data Allergies Allergy/AdvReac Type Severity Reaction Status Date / Time No Known Allergies Allergy Unverified 10/20/21 18:09 Consultations 10/20/21 19:34 ED Decision to Admit Stat 10/21/21 01:21 Consult Cardiology Routine Ordered Studies 10/20/21 21:08 CT angio chest PE protocol Urgent US venous doppler LE LT Routine Hospital Course (1) Atrial flutter with rapid ventricular response: (2) Hypomagnesemia: (3) Leg swelling: (4) Pancytopenia: (5) Tobacco abuse: Patient is a 71 yr female who has significant past medical history of atrial fibrillation noncompliant with anticoagulation, tobacco abuse, chronic thrombocytopenia, hepatitis C antibody positive who presents to ED due to left leg swelling x1 day. A flutter with RVR H/O Afib in 07/2020 [id number] 2 TSH normal Previously on Eliquis but was not compliant secondary to the cost Patient did not follow-up with cardiology since 2019 Spontaneously converted to sinus while on IV diltiazem IV diltiazem discontinued H/O Thrombocytopenia, anemia and noncompliance to anticoagulation and metoprolol, esophageal varices--risks overweigh benefits for long-term anticoagulation Started on metoprolol 25 mg twice daily Appreciate cardiology input Advised to follow-up with cardiology upon discharge Hypomagnesemia replete and Monitor Esophagitis Started on PPI Pancytopenia H/O Thrombocytopenia H/O hepatitis C, cirrhosis CT suggestive of hepatic cirrhosis, portal venous congestion and esophageal varices Advised to follow-up with gastroenterology as outpatient Tobacco abuse Nicotine patch encourage smoking cessation Hyperglycemia A1C 5.4 Leg Edema Likely secondary to cirrhosis/venous insufficiency Venous Doppler negative for DVT DVT Px: IV Heparin Code Status FULL CODE Total Time Total Time Spent Total Time Spent (In Minutes): 40 minutes Discharge Plan Discharge Items Patient Disposition: Home - Self-Care Reason For Visit: RAPID AFLUTTER Discharge Diagnosis: Atrial flutter with rapid ventricular response Hypomagnesemia Pancytopenia Leg edema Esophagitis Tobacco abuse Cirrhosis Activity: Per Instructions section Exercise/Sports: Wait until after follow-up appointment Non-emergency contact: Primary Care Provider, Speaker Mounter and Trust Manager Assistant Call non-emergency contact if: you have any medication questions, your symptoms worsen, your pain is concerning for you and you have a fever Follow-up/Referrals: Anabel Deng, DO [Primary Care Provider] - Diet: Heart Healthy Addtl Attending Provider Instructions: Follow up with your Primary Care physician in 1 week Follow-up with your tongsman Dr. Martin in 2 to 3 weeks Follow-up with your surgeon's assistant for further evaluation of your liver as advised Seek immediate medical attention if your symptoms reoccur or worsen Please take all medications as instructed on discharge list below. Please call if you have any questions or problems. You can reach a [facility] hospitalist on duty at [facility] 24 hours a day by calling [phone] Pending Studies at Discharge: No Stand-Alone Forms: My [facility], Smoking Cessation Medications and DC Order Prescriptions: New pantoprazole 40 mg Tablet,Delayed Release (Dr/Ec) 40 mg PO QAM Qty: 30 RF: 1 metoprolol tartrate 25 mg Tablet 25 mg PO BID Qty: 60 RF: 1 Discharge Orders: Discharge Order (Routine); Ordered 10/21/21 Ordered By: Manuel Cruz Admission Data Admit Date/Time: 10/20/21 21:12 Attending Provider: Manuel Cruz Admit Provider: Brandon Funez Primary Care Provider: Anabel Deng Other Providers: Brandon Funez ; Jarred Doty ; Chinmay Martin ; Nando King ; Raphael Lam ; Willie Wade ; Kolby Aguilar Rebecca K ; Rina Gomez ; Wendi Denise ; Grayson Liriano Other Interventions: Discharge Summary Assessment (RN) Last Done: 10/21/21 12:58
--- NOTE | 2021-10-21 18:35 | Electrocardiogram Report ---
Test Reason : Blood Pressure : / mmHG Vent. Rate : 141 BPM Atrial Rate : 282 BPM P-R Int : 000 ms QRS Dur : 078 ms QT Int : 256 ms P-R-T Axes : 000 051 194 degrees QTc Int : 392 ms Atrial flutter with 2:1 A-V conduction Abnormal ECG When compared with ECG of 23-JUL-2020 06:30, Atrial flutter has replaced Sinus rhythm Vent. rate has increased BY 80 BPM T wave inversion now evident in Inferior leads Nonspecific T wave abnormality now evident in Anterolateral leads Confirmed by Jose David Cook ([id number]) on 10/21/2021 6:34:58 PM Referred By: REFERRED SELF Confirmed By:Jose David Cook
--- NOTE | 2021-10-21 19:28 | Electrocardiogram Report ---
Test Reason : Blood Pressure : / mmHG Vent. Rate : 082 BPM Atrial Rate : 082 BPM P-R Int : 148 ms QRS Dur : 076 ms QT Int : 392 ms P-R-T Axes : 076 063 076 degrees QTc Int : 457 ms Normal sinus rhythm Normal ECG When compared with ECG of 20-OCT-2021 17:54, (unconfirmed) Sinus rhythm has replaced Atrial flutter Vent. rate has decreased BY 59 BPM T wave inversion no longer evident in Inferior leads Nonspecific T wave abnormality, improved in Lateral leads Confirmed by Jose David Cook ([id number]) on 10/21/2021 7:28:00 PM Referred By: REFERRED SELF Confirmed By:Jose David Cook
[2021-10-24 10:21] LABS: Hepatitis C Vira RNA (Log) PCR 5.73 Log IU/mL (NOT DETECTED)
--- NOTE | 2021-11-25 09:34 | Coding Query ---
A supporting diagnosis is required for the test/procedure performed on this patient in order for us to be reimbursed by the patient's insurance. Please provide a supporting diagnosis for the following test/procedure listed below next to the test name along with your signature. *If there is no additional diagnosis for this patient that would support the following test/procedure please document that below next to the test/procedure. Test(s)/Procedure(s) that require a supporting diagnosis: Vitamin B12 DIAGNOSIS:__anemia Folic Acid DIAGNOSIS: anemia Provider Signature: JNO Date: ___11/30/21____ Thank you Htatie Vargas Health Information Management Once completed, please kindly fax back to [phone] For questions please call [phone] ARIADNA
== END 2021-10-21 13:00 | disposition home or self-care (01) | DRG 309 ==
LOC: ED 17:45 → OBSVTOIN 21:12 → EDINP 21:12 → INTOOBSV 21:12 → EDINP 10-21 01:35

== ENCOUNTER 2025-04-29 07:01 | Inpatient (IN) ==
--- NOTE | 2025-04-29 07:12 | Emergency Department Note ---
Impression & Plan Acute exacerbation of chronic obstructive pulmonary disease, Acute alteration in mental status, Acute bronchitis, Acute hyponatremia, Hypokalemia, Atrial fibrillation with rapid ventricular response ED Provider Note NAME: TYRONE BRASHER AGE: 75 SEX: F : 1950 ARRIVES VIA: Ambulance INFORMANT: Patient, EMS ED PROVIDER(S): Feroz Garduno DO CHIEF COMPLAINT: Trouble breathing HPI: The patient is a 75-year-old female who has a history of COPD and cirrhosis who presented to the emergency department for an evaluation of trouble breathing. The patient states that she noticed symptoms over the last 24 hours. She denies having any hemoptysis or leg swelling. She was found to be in rapid atrial fibrillation. I did receive a prehospital notification about the patient. The patient's blood pressure was found to be low and she was tachycardic. She does appear to be in atrial fibrillation with RVR. The patient received 600 mL of normal saline solution prior to coming to the emergency department. ROS: See above HPI for pertinent positives & negatives. A total of 10 systems reviewed and were otherwise negative. PAST MEDICAL HISTORY: See Below PAST SURGICAL HISTORY: See Below FAMILY HISTORY: See Below SOCIAL HISTORY: See Below HOME MEDICATIONS: See Below ALLERGIES: See Below VITALS: See Below PHYSICAL EXAMINATION: GENERAL: The patient is awake to verbal commands. The patient follows commands slowly but appropriately. EYES: The conjunctivae are clear. The pupils are round and reactive. EARS, NOSE, MOUTH AND THROAT: The nose is without any evidence of any deformity. NECK: The neck is nontender and supple. RESPIRATORY: Diminished breath sounds are noted throughout. There were rhonchi in the right upper lung field. There is no tachypnea or conversational dyspnea. CARDIOVASCULAR: Tachycardic and irregular heart sounds were noted to auscultation. There is no definite murmur. GASTROINTESTINAL: The abdomen is soft. Abdomen is nontender. MUSCULOSKELETAL/EXTREMITIES: There is no evidence of gross deformity full range of motion is noted in the hips and shoulders. SKIN: There is no pedal edema. NEUROLOGIC: Patient is awake and oriented to person place and situation. Strength was symmetric but diminished. MEDICAL DECISION MAKING: The patient is a 75-year-old female who presented to the emergency department for an evaluation of difficulty breathing. The patient was found to be in A-fib with RVR. Her blood pressure was also low and she appeared to be suffering from some degree of abnormal lung sounds. I was concerned that this could represent some other underlying issue rather than just rate uncontrolled atrial fibrillation. She was treated with IV fluids. She was also treated with IV antibiotics. She was given a bronchodilator treatment as well as IV steroids. The patient was reevaluated multiple times. She was found to have an elevated lactic acid. Chest x-ray showed no acute process although exam johnson this could be more consistent with an acute bronchitis. I discussed patient's laboratory and radiographic studies with her. Given her findings I also discussed her condition with the on-call [facility] group. They have agreed to evaluate the patient in the emergency department for further management and disposition. Triage Nursing notes reviewed. Prior medical records reviewed Vital Signs: reviewed and remarkable for initial tachycardia and episodes of hypotension. Differential diagnosis: Reactive airway disease, pneumonia, pneumothorax, COPD, CHF, infections, cardiac ischemia, pulmonary embolism, musculoskeletal, gastrointestinal, as well as other pathologies. ER treatment provided: See below Diagnostics interpreted by me: ECG: EKG was obtained in the emergency department. My interpretation is atrial fibrillation with RVR at 128 bpm. There were no PVCs noted. Diffuse ST abnormalities were appreciated. This was compared to a tracing from April 18, 2025. There is an increase in the rate otherwise no specific changes in the QRST morphology. Cardiac Monitoring: An order was placed for continuous cardiac monitoring. The monitor shows a rate of 102 bpm with atrial fibrillation and RVR. Laboratory studies: As stated above and show below. Imaging studies: See below. Radiographic imaging was reviewed by myself Consultation(s): I discussed this case with the [facility]. They have agreed to evaluate the patient in the emergency department for further management and disposition. ED COURSE: Procedures: none Critical Care: I have personally spent greater than 45 minutes of critical care time in the direct management of this patient. This includes bedside care, interpretation of diagnostic studies, and testing, discussion with consultants, patient, and family members, and other required patient management activities. This 45 minutes is in excess of all separately billable procedures. Past Med/Surg History Problem List (Updated 04/29/25 @ 13:20 by NATHANAEL Grande) Elevated lactic acid level Atrial fibrillation with rapid ventricular response (Acute) Hypokalemia (Acute) Acute hyponatremia (Acute) Acute bronchitis (Acute) Acute exacerbation of chronic obstructive pulmonary disease (Acute) Cirrhosis Hypomagnesemia (Acute) Tobacco abuse (Acute) Medical History (Updated 04/29/25 @ 13:20 by NATHANAEL Grande) Delirium Sleep disorder Depression with anxiety Hepatitis C antibody positive in blood Thrombocytopenia Leg swelling Pancytopenia Atrial flutter with rapid ventricular response Acute exacerbation of chronic obstructive pulmonary disease Fall Abrasion of left upper arm Acute alteration in mental status Elevated hemoglobin Hypokalemia Atrial fibrillation with RVR Surgical History (Updated 04/29/25 @ 13:19 by NATHANAEL Grande) No history of previous surgery Family History Sister Hx of CABG Father Coronary heart disease Stroke Mother Stroke Coronary heart disease Social History (Updated 04/29/25 @ 13:23 by NATHANAEL Grande) Smoking Status: Current every day smoker Tobacco Type: Cigarettes packs per day: 1; Cigarettes Per Day: 3; Second Hand Exposure: Yes; Do You Dip or Chew Tobacco: No; Tobacco Cessation Education Requested by Patient: No Hx Alcohol Use: No Hx Substance Use: No Preferred Language: Iraqi Communication Ability: Effective Dietary Aide Required: No Beliefs That Will Affect Care: None marital status: Single Current Living Situation: Significant Other Other Information That Helps Us Care for You: No Feels Safe at Home: Yes Assistive Devices: Walker Allergies Allergies Allergy/AdvReac Type Severity Reaction Status Date / Time No Known Allergies Allergy Unverified 04/29/25 08:41 Home Meds Home Medications Medication Instructions Recorded Confirmed aspirin 81 mg tablet,delayed 81 mg PO DAILY 10/15/24 04/29/25 release hydrochlorothiazide 25 mg tablet 25 mg PO QAM 10/15/24 04/29/25 losartan 25 mg tablet 25 mg PO QAM 10/15/24 04/29/25 levofloxacin 500 mg tablet 500 mg PO DAILY 04/29/25 04/29/25 Previous Rx's Medication Instructions Recorded metoprolol tartrate 25 mg tablet 37.5 mg (1.5 x 25 mg) PO BID #60 11/25/24 tabs methocarbamol 750 mg tablet 750 mg PO TID PRN pain/spasm #90 11/27/24 tabs albuterol sulfate 90 mcg/actuation 2 inh inhalation Q6H PRN shortness 04/18/25 aerosol inhaler of breath or wheezing #6.7 grams prednisone 20 mg tablet 40 mg (2 x 20 mg) PO DAILY #10 tabs 04/18/25 Results & Data (ED) Vital Signs Vital Signs - 24 hr 04/29/25 07:09 04/29/25 07:09 04/29/25 07:09 Temperature 36.6 C 36.6 C Temperature Source Oral Oral Pulse Rate 121 H Pulse Rate [Apical] 121 H Respiratory Rate 19 22 Respiratory Effort / Characteristics Labored Short of Breath Labored Short of Breath Labored Short of Breath Respiratory Depth Normal Respiratory Pattern Regular Blood Pressure 136/96 Blood Pressure [Left Arm] 136/96 Blood Pressure Mean 109 Blood Pressure Mean [Left Arm] 109 Blood Pressure Position Sitting Blood Pressure Position [Left Arm] Sitting Pulse Oximetry 100 100 Oxygen Delivery Method Room Air Room Air Sepsis Recent Fever Within 48 Hours No Sepsis New/Unexplained Change in Mental Status N/A Sepsis Action Taken by Nursing No Action Required 04/29/25 08:21 04/29/25 08:30 04/29/25 09:20 Temperature Temperature Source Pulse Rate 136 H Pulse Rate [Apical] 117 H Respiratory Rate 18 Respiratory Effort / Characteristics Spontaneous Respiratory Depth Respiratory Pattern Blood Pressure Blood Pressure [Left Arm] 94/63 L Blood Pressure Mean Blood Pressure Mean [Left Arm] 73 Blood Pressure Position Blood Pressure Position [Left Arm] Sitting Pulse Oximetry 96 99 Oxygen Delivery Method Room Air Room Air Sepsis Recent Fever Within 48 Hours Sepsis New/Unexplained Change in Mental Status Sepsis Action Taken by [facility] Medications Current Medication List: was personally reviewed by me Laboratory Data Attestation: I reviewed the patient's lab results. 04/29/25 07:12 04/29/25 07:12 Lab Results 04/29/25 04/29/25 04/29/25 Range/Units 07:12 08:01 08:38 WBC 3.44 L (4.8-10.8) K/ul RBC 5.25 (4.20-5.40) M/uL Hgb 15.3 (12.0-16.0) g/dl Hct 41.5 (37.0-47.0) % MCV 79.0 L (80.0-100.0) fL MCH 29.1 (25.0-34.0) pg MCHC 36.9 H (32.0-36.0) g/dL RDW Std Deviation 38.8 (36.4-46.3) fL RDW Coeff of Shima 13.5 (11.5-14.5) % Plt Count 156 (130-400) K/uL MPV 10.7 (9.4-12.4) fL Immature Gran % (Auto) 0.6 % Neut % (Auto) 82.3 % Lymph % (Auto) 12.2 % [place] % (Auto) 4.9 % Eos % (Auto) 0.0 % Baso % (Auto) 0.0 % Neut # (Auto) 2.83 (1.40-6.50) K/uL Lymph # (Auto) 0.42 L (1.20-3.40) K/uL [place] # (Auto) 0.17 (0.11-0.59) K/uL Eos # (Auto) 0.00 (0.00-0.50) K/uL Baso # (Auto) 0.00 (0.00-0.20) K/uL Immature Gran # (Auto) 0.02 (0.01-0.20) K/uL PT 11.2 (9.0-12.0) Seconds INR 1.0 (0.9-1.1) APTT 23 (21-31) Seconds PTT Ratio 0.9 VBG pH 7.45 H (7.36-7.41) VBG pCO2 41 (38-50) mmHg VBG pO2 31 mmHg VBG HCO3 29 mmol/L VBG O2 Saturation < 60.0 % VBG Base Excess 4.1 mEq/L Sodium 121 L (136-145) mmol/L Potassium 3.0 L (3.5-5.1) mmol/L Chloride 82 L (98-107) mmol/L Carbon Dioxide 25 (21-32) mmol/L Anion Gap 14 H (3-11) BUN 12 (6-23) mg/dl Creatinine 0.71 (0.6-1.2) mg/dl Est Cr Clr Drug Dosing 60.0 ml/min eGFR 89.17 BUN/Creatinine Ratio 16.9 (10-20) Glucose 153 H (70-99(Fasting)) mg/dl Osmolality 256 L (280-300) mOsm/kg Lactate 5.2 H* (0.4-2.0) mmol/L Calcium 9.8 (8.6-10.3) mg/dl Magnesium 1.4 L (1.7-2.4) mg/dl Total Bilirubin 1.6 H (0.2-1.0) mg/dl AST 31 (13-39) U/L ALT 12 (7-52) U/L Alkaline Phosphatase 64 (34-104) U/L Ammonia 21.0 (18-72) umol/L Troponin I High Sens 27.9 H (0-14) pg/ml C-Reactive Protein < 0.50 (0-0.5) mg/dl Total Protein 7.8 (6.0-8.3) gm/dl Albumin 4.4 (3.4-5.0) gm/dl Globulin 3.4 (2.5-4.0) gm/dl Albumin/Globulin Ratio 1.3 (0.9-2) Procalcitonin < 0.02 (0-0.5) ng/ml TSH 0.857 (0.300-4.500) uIu/ml SARS-CoV-2 (PCR) NEGATIVE (Negative) Influenza Type A (PCR) Negative (Neg) Influenza Type B (PCR) Negative (Neg) RSV (RT-PCR) Negative (Neg) 04/29/25 04/29/25 Range/Units 09:19 09:23 WBC (4.8-10.8) K/ul RBC (4.20-5.40) M/uL Hgb (12.0-16.0) g/dl Hct (37.0-47.0) % MCV (80.0-100.0) fL MCH (25.0-34.0) pg MCHC (32.0-36.0) g/dL RDW Std Deviation (36.4-46.3) fL RDW Coeff of Shima (11.5-14.5) % Plt Count (130-400) K/uL MPV (9.4-12.4) fL Immature Gran % (Auto) % Neut % (Auto) % Lymph % (Auto) % [place] % (Auto) % Eos % (Auto) % Baso % (Auto) % Neut # (Auto) (1.40-6.50) K/uL Lymph # (Auto) (1.20-3.40) K/uL [place] # (Auto) (0.11-0.59) K/uL Eos # (Auto) (0.00-0.50) K/uL Baso # (Auto) (0.00-0.20) K/uL Immature Gran # (Auto) (0.01-0.20) K/uL PT (9.0-12.0) Seconds INR (0.9-1.1) APTT (21-31) Seconds PTT Ratio VBG pH (7.36-7.41) VBG pCO2 (38-50) mmHg VBG pO2 mmHg VBG HCO3 mmol/L VBG O2 Saturation % VBG Base Excess mEq/L Sodium (136-145) mmol/L Potassium (3.5-5.1) mmol/L Chloride (98-107) mmol/L Carbon Dioxide (21-32) mmol/L Anion Gap (3-11) BUN (6-23) mg/dl Creatinine (0.6-1.2) mg/dl Est Cr Clr Drug Dosing ml/min eGFR BUN/Creatinine Ratio (10-20) Glucose (70-99(Fasting)) mg/dl Osmolality (280-300) mOsm/kg Lactate 3.3 H* (0.4-2.0) mmol/L Calcium (8.6-10.3) mg/dl Magnesium (1.7-2.4) mg/dl Total Bilirubin (0.2-1.0) mg/dl AST (13-39) U/L ALT (7-52) U/L Alkaline Phosphatase (34-104) U/L Ammonia (18-72) umol/L Troponin I High Sens 24.6 H (0-14) pg/ml C-Reactive Protein (0-0.5) mg/dl Total Protein (6.0-8.3) gm/dl Albumin (3.4-5.0) gm/dl Globulin (2.5-4.0) gm/dl Albumin/Globulin Ratio (0.9-2) Procalcitonin (0-0.5) ng/ml TSH (0.300-4.500) uIu/ml SARS-CoV-2 (PCR) (Negative) Influenza Type A (PCR) (Neg) Influenza Type B (PCR) (Neg) RSV (RT-PCR) (Neg) Administered Medications Aspirin (Aspirin 81 Mg Ectab) 81 mg PO DAILY PORTIA Stop: 05/29/25 11:33 Last Admin: 04/29/25 12:12 Dose: 81 mg Documented By: ILAN Budesonide (Budesonide 0.5 Mg/2 Ml Vial (Pulmicort)) 0.5 mg NEB BIDR PORTIA Stop: 05/29/25 10:04 Last Admin: 04/29/25 11:36 Dose: 0.5 mg Documented By: [id number] Enoxaparin Sodium (Enoxaparin Inj 60 Mg/0.6 Ml Syr) 60 mg SQ Q12H PORTIA Stop: 05/29/25 11:59 Last Admin: 04/29/25 12:13 Dose: 60 mg Documented By: ILAN Formoterol Fumarate (Formoterol 20 Mcg/2 Ml Vial) 20 mcg NEB BIDR PORTIA Stop: 05/29/25 10:04 Last Admin: 04/29/25 11:36 Dose: 20 mcg Documented By: [id number] Magnesium Sulfate/Dextrose (Magnesium Sulfate / D5w) 1 gm in 100 mls @ 50 mls/hr IV Q2H PORTIA Stop: 04/29/25 16:44 Last Admin: 04/29/25 13:27 Dose: 50 mls/hr Documented By: ILAN Metoprolol Tartrate (Metoprolol Tartrate 25 Mg Tab) 25 mg PO Q6 PORTIA Stop: 05/29/25 11:59 Last Admin: 04/29/25 12:13 Dose: 25 mg Documented By: ILAN Miscellaneous (Remove Nicoderm Patch) 1 each N/A DAILY@0859 [facility] Stop: 05/29/25 11:46 Last Admin: 04/29/25 12:13 Dose: 1 each Documented By: ILAN Nicotine (Nicotine 7 Mg/24 Hr Tdsy) 1 patch TD QAM PORTIA Stop: 05/29/25 11:33 Last Admin: 04/29/25 12:12 Dose: 1 patch Documented By: ILAN Discontinued Medications Albuterol (Albut/Ipratrop 3mg/0.5mg Neb 3 Ml Vial) 3 ml NEB NOW STA; Protocol Stop: 04/29/25 08:21 Last Admin: 04/29/25 08:35 Dose: 3 ml Documented By: DARRIUS Azithromycin (Azithromycin 250 Mg Tab) 500 mg PO ONE ONE Stop: 04/29/25 10:16 Last Admin: 04/29/25 13:27 Dose: 500 mg Documented By: ILAN Magnesium Sulfate/Dextrose (Magnesium Sulfate / D5w) 1 gm in 100 mls @ 100 mls/hr IV NOW STA Stop: 04/29/25 08:03 Last Infusion: 04/29/25 09:30 Dose: Infused Documented By: Admin: 04/29/25 08:08 Dose: 100 mls/hr Documented By: AMS Sodium Chloride (Nss) 1,000 mls @ 999 mls/hr IV .Q1H1M ONE Stop: 04/29/25 08:32 Last Infusion: 04/29/25 09:43 Dose: Infused Documented By: Admin: 04/29/25 08:08 Dose: 999 mls/hr Documented By: AMS Sodium Chloride (Nss) 1,000 mls @ 999 mls/hr IV .Q1H1M ONE Stop: 04/29/25 09:19 Last Infusion: 04/29/25 11:13 Dose: Infused Documented By: Admin: 04/29/25 09:40 Dose: 999 mls/hr Documented By: DARRIUS Magnesium Sulfate/Dextrose (Magnesium Sulfate / D5w) 1 gm in 100 mls @ 100 mls/hr IV NOW STA Stop: 04/29/25 09:18 Last Infusion: 04/29/25 11:13 Dose: Infused Documented By: Admin: 04/29/25 09:38 Dose: 100 mls/hr Documented By: DARRIUS Ceftriaxone Sodium (Rocephin) 2,000 mg in 50 mls @ 100 mls/hr IV NOW STA Stop: 04/29/25 08:48 Last Infusion: 04/29/25 09:15 Dose: Infused Documented By: [facility] Admin: 04/29/25 08:34 Dose: 100 mls/hr Documented By: AMS Potassium Chloride (K [place] / Wtr) 10 meq in 100 mls @ 100 mls/hr IV Q1H PORTIA Stop: 04/29/25 10:29 Last Infusion: 04/29/25 12:09 Dose: Infused Documented By: Admin: 04/29/25 10:18 Dose: 100 mls/hr Documented By: Infusion: 04/29/25 10:17 Dose: Infused Documented By: [facility] Admin: 04/29/25 08:34 Dose: 100 mls/hr Documented By: AMS Magnesium Sulfate/Dextrose (Magnesium Sulfate / D5w) 1 gm in 100 mls @ 100 mls/hr IV Q1H PORTIA Stop: 04/29/25 11:58 Last Admin: 04/29/25 11:54 Dose: Not Given Documented By: Admin: 04/29/25 11:50 Dose: Not Given Documented By: ILAN Sodium Chloride (Nss) 500 mls @ 999 mls/hr IV .Q31M ONE Stop: 04/29/25 11:56 Last Infusion: 04/29/25 12:39 Dose: Infused Documented By: Admin: 04/29/25 12:04 Dose: 999 mls/hr Documented By: ILAN Ipratropium [place] (Ipratropium [place] Neb Soln 0.02% 0.5mg/2.5ml Vial) 0.5 mg NEB Q4 PORTIA Stop: 05/29/25 10:04 Last Admin: 04/29/25 11:36 Dose: Not Given Documented By: [id number] Levalbuterol HCl (Levalbuterol 1.25 Mg/3 Ml Neb) 1.25 mg NEB Q4H PORTIA Stop: 05/29/25 09:59 Last Admin: 04/29/25 11:36 Dose: Not Given Documented By: [id number] Methylprednisolone (Methylprednisolone 125 Mg/2 Ml Vial) 125 mg IV NOW STA Stop: 04/29/25 08:21 Last Admin: 04/29/25 08:35 Dose: 125 mg Documented By: DARRIUS Metoprolol Tartrate (Metoprolol Tartrate 25 Mg Tab) 25 mg PO ONE ONE Stop: 04/29/25 10:16 Last Admin: 04/29/25 12:08 Dose: Not Given Documented By: ILAN Potassium Chloride (Potassium Chloride Crtab 20 Meq Tabcr) 40 meq PO NOW STA Stop: 04/29/25 09:59 Last Admin: 04/29/25 12:43 Dose: Not Given Documented By: ILAN Potassium Chloride (Potassium Chloride Crtab 20 Meq Tabcr) 40 meq PO NOW STA Stop: 04/29/25 12:45 Last Admin: 04/29/25 13:27 Dose: 40 meq Documented By: ILAN Imaging Data Attestation: I personally reviewed and interpreted this imaging study as follows: My Impression: 1 view chest x-ray was obtained in the emergency department. My interpretation is no free air or definite infiltrate, final report below. Radiologist's Impression: Chest X-Ray 04/29/25 07:03 EXAM: XR chest 1V portable CLINICAL HISTORY: Dysrhythmia TECHNIQUE: An X-ray image of the chest is obtained in PA projection. COMPARISON: 10/20/2021 CR, CT dated 10/15/2024 was reviewed. FINDINGS: Pulmonary Parenchyma: Bilateral prominent bronchovascular/interstitial markings. Small atelectatic band traversing in the right perihilar region. No evidence of consolidation or focal opacity seen. No pulmonary nodule seen. No evidence of pleural effusion or pleural thickening. Heart and Mediastinum: Heart size and shape are normal. No mediastinal widening or masses. No hilar or mediastinal lymphadenopathy. Bony Thorax: Bony thorax appears intact without fractures or deformities. Soft Tissues: Soft tissues overlying the chest wall are unremarkable. IMPRESSION: 1. No acute cardiopulmonary abnormality seen. 2. Bilateral prominent bronchovascular/interstitial markings. Bronchitis suggest clinical correlation. 3. Small atelectatic band traversing in the right perihilar region. 4. Comparing the previous x-ray dated 10/20/2021 the findings remain stable. Electronically signed by Milad Smith 04-29-2025 07:58 AM Discharge Plan Visit Data Chief Complaint: Shortness of Breath/Dyspnea Stated Complaint: SOB ED Provider: Feroz Garduno Discharge Problem: Acute exacerbation of chronic obstructive pulmonary disease, Acute alteration in mental status, Acute bronchitis, Acute hyponatremia, Hypokalemia, Atrial fibrillation with rapid ventricular response Patient Disposition: Admitted As Inpatient Condition: Fair Discharge Instructions Interventions: ED Discharge Assessment Last Done: 04/29/25 11:10
[2025-04-29 07:38] LABS: Hematocrit (blood only) 41.5 % (37.0-47.0); Hemoglobin 15.3 g/dl (12.0-16.0); Immature Granulocytes # (auto) 0.02 K/uL (0.01-0.20); Immature Granulocytes % (auto) 0.6 %; Mean Corpuscular Hemoglobin 29.1 pg (25.0-34.0); Mean Corpuscular Volume 79.0 fL (80.0-100.0); Platelet Count 156 K/uL (130-400); RDW Standard Deviation 38.8 fL (36.4-46.3); Red Blood Count 5.25 M/uL (4.20-5.40); White Blood Count 3.44 K/ul (4.8-10.8)
[2025-04-29 07:55] LABS: Alanine Aminotransferase 12 U/L (7-52); Albumin Globulin Ratio 1.3 (0.9-2); Alkaline Phosphatase 64 U/L (34-104); Anion Gap 14 (3-11); Bilirubin,Total 1.6 mg/dl (0.2-1.0); Blood Urea Nitrogen 12 mg/dl (6-23); Calcium 9.8 mg/dl (8.6-10.3); Carbon Dioxide 25 mmol/L (21-32); Chloride 82 mmol/L (98-107); Creatinine Clr Calc Pharmacy 60.0 ml/min; Globulin 3.4 gm/dl (2.5-4.0); Glucose 153 mg/dl (70-99(Fasting)); Magnesium 1.4 mg/dl (1.7-2.4); Potassium 3.0 mmol/L (3.5-5.1); Sodium 121 mmol/L (136-145); Total Protein 7.8 gm/dl (6.0-8.3)
--- NOTE | 2025-04-29 07:58 | XRay Report ---
EXAM: XR chest 1V portable CLINICAL HISTORY: Dysrhythmia TECHNIQUE: An X-ray image of the chest is obtained in PA projection. COMPARISON: 10/20/2021 CR, CT dated 10/15/2024 was reviewed. FINDINGS: Pulmonary Parenchyma: Bilateral prominent bronchovascular/interstitial markings. Small atelectatic band traversing in the right perihilar region. No evidence of consolidation or focal opacity seen. No pulmonary nodule seen. No evidence of pleural effusion or pleural thickening. Heart and Mediastinum: Heart size and shape are normal. No mediastinal widening or masses. No hilar or mediastinal lymphadenopathy. Bony Thorax: Bony thorax appears intact without fractures or deformities. Soft Tissues: Soft tissues overlying the chest wall are unremarkable. IMPRESSION: 1. No acute cardiopulmonary abnormality seen. 2. Bilateral prominent bronchovascular/interstitial markings. Bronchitis suggest clinical correlation. 3. Small atelectatic band traversing in the right perihilar region. 4. Comparing the previous x-ray dated 10/20/2021 the findings remain stable. Electronically signed by Milad Smith 04-29-2025 07:58 AM
[2025-04-29] MEDS: MAGNESIUM SULFATE / D5W 1 GM/100 ML BAG IV STA ×2 (08:08→09:38)
[2025-04-29] MEDS: SODIUM CHLORIDE 0.9% 1,000 ML IV ONE ×2 (08:08→09:40)
[2025-04-29 08:10] LABS: INR 1.0 (0.9-1.1); Partial Thromboplastin Time 23 Seconds (21-31); Prothrombin Time 11.2 Seconds (9.0-12.0)
[2025-04-29 08:12] LABS: Thyroid Stimulating Hormone 0.857 uIu/ml (0.300-4.500)
[2025-04-29 08:14] LABS: Base Excess VBG 4.1 mEq/L; HCO3 VBG 29 mmol/L; Oxygen Saturation VBG < 60.0 %; PCO2 VBG 41 mmHg (38-50); PO2 VBG 31 mmHg; pH VBG 7.45 (7.36-7.41)
[2025-04-29] MEDS: cefTRIAXone SODIUM 2,000 MG/50 ML BAG IV STA (08:34)
[2025-04-29] MEDS: POTASSIUM CHLORIDE / WTR 10 MEQ/100 ML PLCT IV SCH (08:34)
[2025-04-29] MEDS: ALBUT/IPRATROP 3MG/0.5MG NEB 3 ML VIAL NEB STA (08:35)
--- NOTE | 2025-04-29 08:35 | History & Physical Report ---
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 COPD exacerbation Bronchitis Patient presented with SOB x4 days CXR consistent with bronchitis, no evidence of PNA Labs revealed leukopenia (baseline for pt), VBG WNL, multiple lyte abnormalities as below Covid, flu, RSV negative Received ceftriaxone and methylprednisolone in ED Continue ceftriaxone daily and Solu-Medrol q8hr Add azithromycin 500mg x3 days Xopenex/atrovent nebs q4hr Budesonide and formoterol nebs bid Sputum culture if able ISP and flutter valve A fib with RVR Hypotension Likely secondary to acute illness, albuterol use, lyte abnormalities Rates 115s-150s with hypotension 90s/60s Received 2L NSS in the ED Add 500mL NSS Metoprolol tartrate 25mg q6hr Lovenox 1mg/kg q12hr for anticoagulation Hold HCTZ and losartan Echo ordered Cardiology consult: appreciate recs Hyponatremia Corrected sodium 122 on admission Received 2.5L NSS total Serum osmolality 256, urine osmolality 162, urine Na 24 Hold HCTZ Repeat BMP at 1400 and q8hr Nephrology consult: appreciate recs Hypokalemia Hypomagnesemia K 3.0 and Mag 1.4 on admission Received 20meq IV KCl in the ED - add 40meq PO Received 2g IV Mag in the ED - add additional 2g IV Repeat BMP at 1400 and q8hr Elevated lactic acid level Lactate 5.2-> 3.3 on admission Infectious work up pending including blood and urine cultures Continue antibiotics as above Follow cultures UTI UA +nitrite, leuk esterase, WBC, bacteria Patient denies dysuria On ceftriaxone as above Follow urine culture HCV cirrhosis Follows with [facility] in Jul 2022 Last EGD and colonoscopy in May 2024 Ammonia 21 Low sodium diet 2g/day Tylenol max 2g/day Tobacco use disorder Nicotine patch Counseled on tobacco cessation DVT Prophylaxis: SQ lovenox for AC Code Status: FULL CODE PCP: Taco Echavarria Disposition: admit to tele Patient seen in collaboration with Dr Mabry. Please see addendum. I spent a total of 75 minutes coordinating, documenting and providing care for this patient excluding time spent in the performance of separately billed services or time spent by another provider/QHP. 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 Patient reports she has been SOB even at rest for the last four days. She has been using her albuterol inhaler (20x yesterday and 10x this morning) with no improvement. She has a chronic cough with phlegm that she attributes to smoking that she notes is no different than her baseline. Denies increased sputum or discolored sputum. Denies fevers, chills, cold symptoms, chest pain, abdominal pain, N/V/D, dysuria, weakness. Per record review, she was in the ED on 04/18/2025 after having a fall at home and her examination was concerning for a COPD exacerbation but she left AMA. She was sent home with albuterol and prednisone. She then presented to her PCP yesterday who also treated for exacerbation with antibiotics and prednisone. She was ordered PFTs at that time. She reports she did take her levofloxacin and prednisone that was prescribed with no improvement in SOB. Reports she smokes 3 cigarettes per day. Allergies Allergy/AdvReac Type Severity Reaction Status Date / Time No Known Allergies Allergy Unverified 04/29/25 08:41 Home Medications Medication Instructions Recorded Confirmed Type aspirin 81 mg tablet,delayed 81 mg PO DAILY 10/15/24 04/29/25 History release hydrochlorothiazide 25 mg tablet 25 mg PO QAM 10/15/24 04/29/25 History losartan 25 mg tablet 25 mg PO QAM 10/15/24 04/29/25 History metoprolol tartrate 25 mg tablet 37.5 mg (1.5 x 25 mg) PO BID #60 11/25/24 04/29/25 Rx tabs methocarbamol 750 mg tablet 750 mg PO TID PRN pain/spasm #90 11/27/24 04/29/25 Rx tabs albuterol sulfate 90 mcg/actuation 2 inh inhalation Q6H PRN shortness 04/18/25 04/29/25 Rx aerosol inhaler of breath or wheezing #6.7 grams prednisone 20 mg tablet 40 mg (2 x 20 mg) PO DAILY #10 tabs 04/18/25 04/29/25 Rx levofloxacin 500 mg tablet 500 mg PO DAILY 04/29/25 04/29/25 History Past Med/Surg History Problem List Elevated lactic acid level Atrial fibrillation with rapid ventricular response (Acute) Hypokalemia (Acute) Acute hyponatremia (Acute) Acute bronchitis (Acute) Acute exacerbation of chronic obstructive pulmonary disease (Acute) Cirrhosis Hypomagnesemia (Acute) Tobacco abuse (Acute) Medical History Delirium Sleep disorder Depression with anxiety Hepatitis C antibody positive in blood Thrombocytopenia Leg swelling Pancytopenia Atrial flutter with rapid ventricular response Acute exacerbation of chronic obstructive pulmonary disease Fall Abrasion of left upper arm Acute alteration in mental status Elevated hemoglobin Hypokalemia Atrial fibrillation with RVR Surgical History No history of previous surgery Family History Sister Hx of CABG Father Coronary heart disease Stroke Mother Stroke Coronary heart disease Social History Smoking Status: Current every day smoker Tobacco Type: Cigarettes packs per day: 1; Cigarettes Per Day: 3; Second Hand Exposure: Yes; Do You Dip or Chew Tobacco: No; Tobacco Cessation Education Requested by Patient: No Hx Alcohol Use: No Hx Substance Use: No Preferred Language: Persian Communication Ability: Effective Dock Loader Required: No Beliefs That Will Affect Care: None marital status: Single Current Living Situation: Significant Other Other Information That Helps Us Care for You: No Feels Safe at Home: Yes Assistive Devices: Walker Review of Systems Review of Systems: All systems reviewed & are unremarkable except as noted in HPI & below Physical Exam Physical Exam: General/Psych: WD/WN, sitting up in bed, NAD, conversing easily Head: normocephalic, atraumatic Eyes: normal inspection, PERRL, conjunctivae pink ENT: external ear and nose normal, oropharynx normal Neck: normal visual inspection, trachea midline Respiratory: normal respiratory effort, lungs with little air movement and diminished bases, no w/r/c, no accessory muscle use Cardiovascular: irregular and tachycardic rate and rhythm, no murmur/rub/gallop, no JVD Extremities: no cyanosis or clubbing, normal peripheral pulses, no BLE edema Abdomen/GI: normal bowel sounds, soft, nontender, no hepatosplenomegaly Neurologic/MSK: A+Ox3, motor strength 5/5, moves all extremities Skin: no rashes, normal color, warm and dry Results & Data Results & Data Vital Signs (Past 12 Hours) Vital Signs Temp Pulse Pulse Resp BP BP Pulse Ox 04/29/25 08:21 96 04/29/25 07:09 36.6 C 121 H 22 136/96 100 04/29/25 07:09 36.6 C 121 H 19 136/96 100 O2 Del Method 04/29/25 08:21 Room Air 04/29/25 07:09 Room Air 04/29/25 07:09 Room Air Laboratory Results Short CBC 04/29/25 Range/Units 07:12 WBC 3.44 L (4.8-10.8) K/ul Hgb 15.3 (12.0-16.0) g/dl Hct 41.5 (37.0-47.0) % Plt Count 156 (130-400) K/uL BMP 04/29/25 07:12 Sodium 121 L Potassium 3.0 L Chloride 82 L Carbon Dioxide 25 BUN 12 Creatinine 0.71 Glucose 153 H Calcium 9.8 Liver Function 04/29/25 Range/Units 07:12 Total Bilirubin 1.6 H (0.2-1.0) mg/dl AST 31 (13-39) U/L ALT 12 (7-52) U/L Alkaline Phosphatase 64 (34-104) U/L Albumin 4.4 (3.4-5.0) gm/dl Urine 04/29/25 Range/Units 11:23 Urine Color Yellow Urine Appearance Clear (Clear) Urine pH 6.0 (4.5-7.5) Ur Specific [place] 1.006 (1.000-1.030) Urine Protein Negative (Negative) Urine Glucose (UA) Negative (Negative) I have independently reviewed and interpreted patient's admitting labs including CBC, CMP, PTT, PT/INR, mag, troponin, VBG, lactate, ammonia, CRP, procal, TSH, UA. Diagnostic Findings Chest X-Ray 04/29/25 07:03 EXAM: XR chest 1V portable CLINICAL HISTORY: Dysrhythmia TECHNIQUE: An X-ray image of the chest is obtained in PA projection. COMPARISON: 10/20/2021 CR, CT dated 10/15/2024 was reviewed. FINDINGS: Pulmonary Parenchyma: Bilateral prominent bronchovascular/interstitial markings. Small atelectatic band traversing in the right perihilar region. No evidence of consolidation or focal opacity seen. No pulmonary nodule seen. No evidence of pleural effusion or pleural thickening. Heart and Mediastinum: Heart size and shape are normal. No mediastinal widening or masses. No hilar or mediastinal lymphadenopathy. Bony Thorax: Bony thorax appears intact without fractures or deformities. Soft Tissues: Soft tissues overlying the chest wall are unremarkable. IMPRESSION: 1. No acute cardiopulmonary abnormality seen. 2. Bilateral prominent bronchovascular/interstitial markings. Bronchitis suggest clinical correlation. 3. Small atelectatic band traversing in the right perihilar region. 4. Comparing the previous x-ray dated 10/20/2021 the findings remain stable. Electronically signed by Milad Smith 04-29-2025 07:58 AM ECG Additional Comments: I have independently reviewed and interpreted patient's admitting EKG which revealed: Atrial fibrillation with RVR at rate of 128 Code Status & VTE Plan Code Status Full Code Supervising Physician Co-Signing Physician Notes Patient seen and examined independently. Discussed with above provider. Patient presents to the hospital with COPD exacerbation, atrial fibrillation with RVR, hyponatremia. She was started on breathing treatments, budesonide, formoterol nebs, steroid, antibiotic for COPD exacerbation. Also on metoprolol tarttate every 6 hours for A-fib along with Lovenox for anticoagulation. Monitor BMP every 8 hours for hyponatremia. Cardiology and nephrology consulted for comanagement. I have reviewed the advanced practitioner's documentation, and I agree with, and take responsibility for the plan of care I spent a total of 30 minutes coordinating, documenting, and providing care for this patient excluding time spent in the performance of separately billed services. All of the aforementioned completed while collaborating with the assigned advanced practitioner for a full treatment plan
[2025-04-29 09:52] LABS: Influenza A virus by PCR Negative (Neg); Influenza B virus by PCR Negative (Neg); SARS CoV2 RNA(COVID-19) Ceph NEGATIVE (Negative)
[2025-04-29] MEDS ORDERED: ONDANSETRON INJ 2 MG/ML 2 ML VIAL IV PRN (11:34)
[2025-04-29] MEDS ORDERED: POLYETHYLENE (MIRALAX) 17 GM PACK PO PRN (11:34)
[2025-04-29] MEDS ORDERED: ACETAMINOPHEN 500 MG TAB PO PRN (11:34)
[2025-04-29] MEDS ORDERED: MAGNESIUM HYDROXIDE SUSP 30 ML UDC PO PRN (11:34)
[2025-04-29] MEDS: IPRATROPIUM BROMIDE NEB SOLN 0.02% 0.5MG/2.5ML VIAL NEB SCH ×2 (11:36→15:32)
[2025-04-29] MEDS: FORMOTEROL 20 MCG/2 ML VIAL NEB SCH (11:36)
[2025-04-29] MEDS: LEVALBUTEROL 1.25 MG/3 ML NEB NEB SCH ×2 (11:36→15:32)
[2025-04-29] MEDS: BUDESONIDE 0.5 MG/2 ML VIAL (PULMICORT) NEB SCH (11:36)
[2025-04-29] MEDS: MAGNESIUM SULFATE / D5W 1 GM/100 ML BAG IV SCH ×2 (11:50→13:27)
[2025-04-29 11:51] LABS: Appearance Urine Clear (Clear); Bacteria Urine Automated 4+ (None Seen); Cast Urine Automated 0-2 /lpf (0-2); Epithelial Cell Urine Auto 0-2 /hpf (0-2); Glucose Urine UA Negative (Negative); RBC Urine Automated 0-2 /hpf (0-2)
--- NOTE | 2025-04-29 11:52 | Cardiology Consultation ---
Date of Consultation April 29, 2025 Assessment & Plan (1) Atrial fibrillation with rapid ventricular response: (2) Hypokalemia: (3) Hypomagnesemia: (4) Acute hyponatremia: (5) Acute bronchitis: (6) Acute exacerbation of chronic obstructive pulmonary disease: (7) Acute alteration in mental status: Plan Complex 75 year old female returning to the [facility] ER with acute on chronic dyspnea, probable acute exacerbation of her chronic obstructive pulmonary disease complicated by recurrent symptomatic atrial flutter/fibrillation with a rapid ventricular response. Duration of atrial fibrillation appears to be at least two weeks, likely longer. Laboratory work with multiple abnormalities including marked hyponatremia, hypokalemia, hypomagnesemia. Evaluation for infection ongoing with blood and urine cultures obtained/pending. History and examination without overt angina or evidence of acute decompensated heart failure. [id number] Score 4 points. Recommendations: * Supplement potassium orally * Supplement magnesium IV * Discontinue hydrochlorothiazide secondary to hyponatremia, avoiding resumption of thiazide diuretic therapy * Increase beta-елена therapy for additional heart rate control * Add digoxin, after correction of electrolyte abnormalities, if needed and u nable to titrate metoprolol * Hold Losartan * Refer for resting echocardiography * Continue telemetry * Risks of residential anticoagulation appear greater than the benefit (ambulatory dysfunction with recurrent falls, cirrhosis with varices, history of thrombocytopenia), ? candidate for left atrial appendage occlusion Supervising Physician Co-Signing Physician Notes Patient was seen and personally examined. Chart, medications, telemetry reviewed. Full assessment plan as outlined by advanced provider as above. Care and management discussed and personally endorsed 75-year-old confused female who presented with signs and symptoms of worsening dyspnea and COPD exacerbation as well as atrial fibrillation with rapid andria tricular response. Atrial fibrillation at least 2 weeks in duration. Marked metabolic derangement present as well as significant changes in mentation. Heart rates trending downward after hospitalization Recommendations and plans as outlined above History of Present Illness Reason for Consultation: Atrial fibrillation with a rapid ventricular response [facility]ending [facility] Dr. Dann Mabry MD History of Present Illness Patient is a 75-year-old female who is being [facility], evaluation of atrial fibrillation with a rapid ventricular response. Information somewhat difficult to discern. Intermittent confusion noted. P beena describes progressive difficulty breathing over the past few months resulting in reduction in tobacco use. On April 18 patient was evaluated in the [facility] ER following a mechanical fall. Significant work of breathing noted thought to represent COPD exacerbation with admission refused, leaeving against medical advise. EKG at that time revealed probable recurrent atrial flutter/fibrillation with a ventricular rate of 105 bpm with nonspecific STT wave abnormality. Patient does have a history of symptomatic paroxysmal atrial flutter/fibrillation with a rapid ventricular response. She was not felt to be a candidate for anticoagulation due to past significant thrombocytopenia as well as significant ambulatory dysfunction resulting in frequent falls. Fall noted in January 2025 on chart review. Patient returned to the [facility] ER in the supervisor research kennel hours of April 29, 2025 with worsening dyspnea and nervousness. Significant other Haroon eventually appeared in room 242 and noted concern for "overdosing her with albuterol." Haroon describes patient taking 30 some hits of albuterol over the past day in an attempt to aid dyspnea, also taking 3 doses of prednisone yesterday and a dose of Levaquin this morning. EKG on presentation today revealed atrial fibrillation with a ventricular rate of 128 bpm with marked diffuse STT wave abnormality and a QTc of 435 ms. L aboratory work with multiple significant abnormalities. Sodium 121. Potassium 3.0. Magnesium 1.4. Lactate 5.2. High-sensitivity troponin mildly elevated at 27.9 then 24.6. TSH within normal range at 0.857. Testing for SARS-CoV-2, influenza, and RSV negative. Chest x-ray with bilateral prominent bronchovesicular/interstitial markings suggesting bronchitis as well as small atelectatic band transversing in the right perihilar region. No acute cardiopulmonary abnormality noted with x-ray findings felt to be unchanged compared to prior from October 2021. At the time of my evaluation patient is resting in bed. She notes the need to urinate. She is confused. She denies chest pain. She denies overt palpitations. Her breathing seems to have improved. She denies bleeding issues including ep istaxis, hemoptysis, melena, hematochezia, hematuria, or vaginal bleeding. 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 Chronic alcohol use. Significant other Haroon. Allergies Allergy/AdvReac Type Severity Reaction Status Date / Time No Known Allergies Allergy Unverified 04/29/25 08:41 Home Medications Medication Instructions Recorded Confirmed Type aspirin 81 mg tablet,delayed 81 mg PO DAILY 10/15/24 04/29/25 History release hydrochlorothiazide 25 mg tablet 25 mg PO QAM 10/15/24 04/29/25 History losartan 25 mg tablet 25 mg PO QAM 10/15/24 04/29/25 History metoprolol tartrate 25 mg tablet 37.5 mg (1.5 x 25 mg) PO BID #60 11/25/24 Rx tabs methocarbamol 750 mg tablet 750 mg PO TID PRN pain/spasm #90 11/27/24 04/29/25 Rx tabs albuterol sulfate 90 mcg/actuation 2 inh inhalation Q6H PRN shortness 04/18/25 04/29/25 Rx aerosol inhaler of breath or wheezing #6.7 grams prednisone 20 mg tablet 40 mg (2 x 20 mg) PO DAILY #10 tabs 04/18/25 04/29/25 Rx levofloxacin 500 mg tablet 500 mg PO DAILY 04/29/25 04/29/25 History Patient History Medical History Delirium Sleep disorder Depression with anxiety Hepatitis C antibody positive in blood Thrombocytopenia Leg swelling Pancytopenia Atrial flutter with rapid ventricular response Acute exacerbation of chronic obstructive pulmonary disease Fall Abrasion of left upper arm Acute alteration in mental status Elevated hemoglobin Hypokalemia Atrial fibrillation with RVR Surgical History No history of previous surgery Family History Sister Hx of CABG Father Coronary heart disease Stroke Mother Stroke Coronary heart disease Social History Smoking Status: Current every day smoker Tobacco Type: Cigarettes packs per day: 1; Cigarettes Per Day: 3; Second Hand Exposure: Yes; Do You Dip or Chew Tobacco: No; Tobacco Cessation Education Requested by Patient: No Hx Alcohol Use: No Hx Substance Use: No Preferred Language: [place] Islander Communication Ability: Effective Infrastructure Solutions Architect Required: No Beliefs That Will Affect Care: None marital status: Single Current Living Situation: Significant Other Other Information That Helps Us Care for You: No Feels Safe at Home: Yes Assistive Devices: Walker Review of Systems Review of Systems: Complete review of systems unable to be obtained. Intermittent confusion observed Physical Exam Physical Exam: General: Alert to person and place. No acute distress. HENT: Normocephalic. Atraumatic. Eyes: PER. Conjunctiva pink, sclera injecteed. Neck: No JVD. Carotid bruits. Heart: Irregularly irregular 120 bpm. No murmur appreciated. Lungs: Diminished. Decreased. Scattered rhonchi that improved post cough. Mild expiratory wheezing om the right Abdomen: +BS. Soft. Nontender. No masses or organomegaly. Extremities: Tanned. Stasis changes. No cyanosis. No edema. Limited neurological examination without focal deficits. Pulses: Posterior tibial= ?1/4. Results & Data Vital Signs (Past 12 Hours) Vital Signs Temp Pulse Pulse Resp BP BP Pulse Ox 04/29/25 11:00 120 H 20 108/78 99 04/29/25 09:20 117 H 18 94/63 L 99 04/29/25 08:30 136 H 04/29/25 08:21 96 04/29/25 07:09 36.6 C 121 H 22 136/96 100 04/29/25 07:09 36.6 C 121 H 19 136/96 100 O2 Del Method 04/29/25 11:00 Room Air 04/29/25 09:20 Room Air 04/29/25 08:30 04/29/25 08:21 Room Air 04/29/25 07:09 Room Air 04/29/25 07:09 Room Air Laboratory Results Cardiac Enzymes 04/29/25 04/29/25 Range/Units 07:12 09:19 AST 31 (13-39) U/L Troponin I High Sens 27.9 H 24.6 H (0-14) pg/ml Coagulation 04/29/25 Range/Units 07:12 PT 11.2 (9.0-12.0) Seconds APTT 23 (21-31) Seconds CBC 04/29/25 Range/Units 07:12 WBC 3.44 L (4.8-10.8) K/ul RBC 5.25 (4.20-5.40) M/uL Hgb 15.3 (12.0-16.0) g/dl Hct 41.5 (37.0-47.0) % Plt Count 156 (130-400) K/uL Neut # (Auto) 2.83 (1.40-6.50) K/uL Lymph # (Auto) 0.42 L (1.20-3.40) K/uL [place] # (Auto) 0.17 (0.11-0.59) K/uL Eos # (Auto) 0.00 (0.00-0.50) K/uL Baso # (Auto) 0.00 (0.00-0.20) K/uL Comprehensive Metabolic Panel 04/29/25 Range/Units 07:12 Sodium 121 L (136-145) mmol/L Potassium 3.0 L (3.5-5.1) mmol/L Chloride 82 L (98-107) mmol/L Carbon Dioxide 25 (21-32) mmol/L BUN 12 (6-23) mg/dl Creatinine 0.71 (0.6-1.2) mg/dl Glucose 153 H (70-99(Fasting)) mg/dl Calcium 9.8 (8.6-10.3) mg/dl AST 31 (13-39) U/L ALT 12 (7-52) U/L Alkaline Phosphatase 64 (34-104) U/L Total Protein 7.8 (6.0-8.3) gm/dl Albumin 4.4 (3.4-5.0) gm/dl Intake and Output 04/28/25 04/29/25 04/29/25 22:59 06:59 14:59 Intake Total 3050 / 3050 Balance 3050 / 3050 Intake: IV 3050 / 3050 Magnesium Sulfate / D5w 1 gm In 200 / 200 100 ml @ 100 mls/hr IV NOW STA Rx#:[id number] Potassium Chloride / Wtr 10 meq 200 / 200 In 100 ml @ 100 mls/hr IV Q1H PORTIA Rx#:[id number] Sodium Chloride 0.9% 1,000 ml @ 2000 / 1999 999 mls/hr IV .Q1H1M ONE Rx#: [id number] cefTRIAXone SODIUM 2,000 mg In 50 / 50 50 ml @ 100 mls/hr IV NOW STA Rx#:[id number] Right Hand 600 / 600 Other: Weight 56.9 kg Weight Measurement [facility] Weight 04/30/25 06:59 Weight 56.9 kg Diagnostic Findings ER telemetry (Room C9) unavailable. Inpatient telemetry (Room 242) with atrial fibrillation with a rapid ventricular response (110 to 150 bpm) PG Care Time/CCT Total # of Minutes Spent Total Time Spent with Patient: Total time spent is greater than 50% in coordination of care (as documented) at patient's floor/unit and/or counseling patient: Coding Level of Care Code 90404 IN/OBS CONSULT LVL 5,80M Diagnoses Atrial fibrillation with rapid ventricular response I48.91 Hypokalemia E87.6 Hypomagnesemia E83.42 Acute hyponatremia E87.1 Acute bronchitis J20.9 Acute exacerbation of chronic obstructive pulmonary disease J44.1 Acute alteration in mental status R41.82
[2025-04-29] MEDS: SODIUM CHLORIDE 0.9% 500 ML IV ONE (12:04)
[2025-04-29] MEDS: METOPROLOL TARTRATE 25 MG TAB PO ONE (12:08)
[2025-04-29] MEDS: ASPIRIN 81 MG ECTAB PO SCH (12:12)
[2025-04-29] MEDS: NICOTINE 7 MG/24 HR TDSY TD SCH (12:12)
[2025-04-29] MEDS: ENOXAPARIN INJ 60 MG/0.6 ML SYR SQ SCH (12:13)
[2025-04-29] MEDS: METOPROLOL TARTRATE 25 MG TAB PO SCH (12:13)
[2025-04-29] MEDS: REMOVE NICODERM PATCH SCH (12:13)
[2025-04-29 12:21] LABS: Amphetamines+Metham, Urine Neg (Neg); MDMA (Ecstacy), Urine Neg (Neg); Marijuana, Urine Neg (Neg)
--- NOTE | 2025-04-29 12:39 | Nephrology Consultation ---
Date of Consultation April 29, 2025 Assessment & Plan (1) Acute hyponatremia: Patient with prior Hyponatremia history. No recent outpt labs . oct and nov showed na 132. Given h/o Cirrhosis and Also COPD she is at very high risk for hyponatremia. She was on HCTZ--should never be used in liver cirrhosis patient. Only use Loop diuretics and Aldactone. Also very possible her protein/solid food intake was lower than before. Admission Na was 121 and improved to 123 with NS. Not really possible to int erpret Urine na and urine osm in Cirrhosis patient with HCTZ on board. However urine osm was fairly low at 173--QUite possible she was drinking lot of liquids. For now will assume its from HCTZ. Even after stopping will take many days for it get better. Once Lactic Acid Normal can stop IVF. for now continue NS at 50 ml/hr. BMP twice daily. given Cirrhosis will not add Urea--Doubt she will take it anyway. For now FFR 1200 ml per day. Give lasix 20 mg iv x1 for free water diuresis now . check renal panel and lactate again at 6 PM. (2) Hypokalemia: Sec to HCTZ and Poor oral intake. Normal quite quickly. (3) Elevated lactic acid level: Abnormal but trending down. will check again to see if it normal totally. (4) Cirrhosis: makes her prone to Low na. Avoid HCTZ permanently. Can use Loop diuretics and Aldactone Plan Time spent 63 mins History of Present Illness Reason for Consultation: Hyponatremia Attending Physician: Dann Mabry MD History of Present Illness 75/F who is not great in getting regular health care and with Complex Medical problems. Came in to ED with increasing SOB. found to have atrial fibrillation with a rapid ventricular response, Hyponatremia--na of 121 and low k/Low mag. also had elevated lacctic acid. was in [facility] ED On April 18 following a mechanical fall. Significant work of breathing noted thought to represent COPD exacerbation--patient refused admission and left AMA. EKG at that time also showed Afibb. Patient does have a history of symptomatic paroxysmal atrial flutter/fibrillation with a rapid ventricular response. She was not felt to be a candidate for anticoagulation due to past significant thrombocytopenia as well as significant ambulatory dysfunction resulting in frequent falls. SARS-CoV-2, influenza, and RSV negative. Chest x-ray with bilateral prominent bronchovesicular/interstitial markings suggesting bronchitis. Since admission has got 2.5 liters of IVF. Lactic acid trending down but not normal yet. Vital signs better.--both o2 sats and BP. K is now normal. Na better at 123. ROS----see HPI. 12 systems reviewed and negative Physical Exam Physical Exam: General: Alert but eyes closed and barely talked No acute distress. HEENT: Normocephalic. Atraumatic. MM moist. Neck: No JVD. Supple Heart: Irregularly irregular No murmur appreciated. Lungs: Diminished. Decreased. expiratory wheezing Abdomen: Soft. Nontender. Extremities:very Tanned. venous Stasis changes. No edema. Allergies Allergy/AdvReac Type Severity Reaction Status Date / Time No Known Allergies Allergy Unverified 04/29/25 08:41 Home Medications Medication Instructions Recorded Confirmed Type aspirin 81 mg tablet,delayed 81 mg PO DAILY 10/15/24 04/29/25 History release hydrochlorothiazide 25 mg tablet 25 mg PO QAM 10/15/24 04/29/25 History losartan 25 mg tablet 25 mg PO QAM 10/15/24 04/29/25 History metoprolol tartrate 25 mg tablet 37.5 mg (1.5 x 25 mg) PO BID #60 11/25/24 04/29/25 Rx tabs methocarbamol 750 mg tablet 750 mg PO TID PRN pain/spasm #90 11/27/24 04/29/25 Rx tabs albuterol sulfate 90 mcg/actuation 2 inh inhalation Q6H PRN shortness 04/18/25 04/29/25 Rx aerosol inhaler of breath or wheezing #6.7 grams prednisone 20 mg tablet 40 mg (2 x 20 mg) PO DAILY #10 tabs 04/18/25 04/29/25 Rx levofloxacin 500 mg tablet 500 mg PO DAILY 04/29/25 04/29/25 History Patient History Medical History Delirium Sleep disorder Depression with anxiety Hepatitis C antibody positive in blood Thrombocytopenia Leg swelling Pancytopenia Atrial flutter with rapid ventricular response Acute exacerbation of chronic obstructive pulmonary disease Fall Abrasion of left upper arm Acute alteration in mental status Elevated hemoglobin Hypokalemia Atrial fibrillation with RVR Surgical History No history of previous surgery Family History Sister Hx of CABG Father Coronary heart disease Stroke Mother Stroke Coronary heart disease Social History Smoking Status: Current every day smoker Tobacco Type: Cigarettes packs per day: 1; Cigarettes Per Day: 3; Second Hand Exposure: Yes; Do You Dip or Chew Tobacco: No; Tobacco Cessation Education Requested by Patient: No Hx Alcohol Use: No Hx Substance Use: No Preferred Language: Montserratian Communication Ability: Effective Design Printer Balloon Required: No Beliefs That Will Affect Care: None marital status: Single Current Living Situation: Significant Other Other Information That Helps Us Care for You: No Feels Safe at Home: Yes Assistive Devices: Walker Results & Data Vital Signs (Past 12 Hours) Vital Signs Temp Pulse Pulse Resp BP BP BP 04/29/25 12:05 36.2 C L 102 H 18 116/75 04/29/25 11:00 120 H 20 108/78 04/29/25 09:20 117 H 18 94/63 L 04/29/25 08:30 136 H 04/29/25 08:21 04/29/25 07:09 36.6 C 121 H 22 136/96 04/29/25 07:09 36.6 C 121 H 19 136/96 Pulse Ox O2 Del Method 04/29/25 12:05 96 Room Air 04/29/25 11:00 99 Room Air 04/29/25 09:20 99 Room Air 04/29/25 08:30 04/29/25 08:21 96 Room Air 04/29/25 07:09 100 Room Air 04/29/25 07:09 100 Room Air Laboratory Results CBC, renal panel, CXR, urine OSm, urine Na reviewed.
[2025-04-29] MEDS: POTASSIUM CHLORIDE CRTAB 20 MEQ TABCR PO STA ×2 (12:43→13:27)
[2025-04-29] MEDS: AZITHROMYCIN 250 MG TAB PO ONE (13:27)
[2025-04-29 15:12] LABS: Anion Gap 9.0 (3-11); Blood Urea Nitrogen 9.0 mg/dl (6-23); Calcium 8.7 mg/dl (8.6-10.3); Carbon Dioxide 24.0 mmol/L (21-32); Chloride 90.0 mmol/L (98-107); Creatinine Clr Calc Pharmacy 61.8 ml/min; Glucose 162.0 mg/dl (70-99(Fasting)); Potassium 3.8 mmol/L (3.5-5.1); Sodium 123.0 mmol/L (136-145)
[2025-04-29] MEDS: SODIUM CHLORIDE 0.9% 500 ML IV SCH (18:22)
[2025-04-29 19:50] LABS: Anion Gap 7.0 (3-11); Blood Urea Nitrogen 11.0 mg/dl (6-23); Calcium 8.8 mg/dl (8.6-10.3); Carbon Dioxide 23.0 mmol/L (21-32); Chloride 91.0 mmol/L (98-107); Creatinine Clr Calc Pharmacy 63.6 ml/min; Glucose 115.0 mg/dl (70-99(Fasting)); Magnesium 2.4 mg/dl (1.7-2.4); Potassium 4.4 mmol/L (3.5-5.1); Sodium 121.0 mmol/L (136-145)
[2025-04-29 22:09] LABS: Anion Gap 6.0 (3-11); Blood Urea Nitrogen 12.0 mg/dl (6-23); Calcium 8.7 mg/dl (8.6-10.3); Carbon Dioxide 25.0 mmol/L (21-32); Chloride 91.0 mmol/L (98-107); Creatinine Clr Calc Pharmacy 71.0 ml/min; Glucose 122.0 mg/dl (70-99(Fasting)); Potassium 4.4 mmol/L (3.5-5.1); Sodium 122.0 mmol/L (136-145)
[2025-04-29] MEDS: METOPROLOL TARTRATE 1 MG/ML VIAL IV ONE (23:19)
[2025-04-30] MEDS: KETOROLAC TROMETHAMINE 15 MG/ML VIAL IV ONE (00:36)
[2025-04-30 07:32] LABS: Hematocrit (blood only) 33.7 % (37.0-47.0); Hemoglobin 11.6 g/dl (12.0-16.0); Mean Corpuscular Hemoglobin 28.0 pg (25.0-34.0); Mean Corpuscular Volume 81.2 fL (80.0-100.0); Platelet Count 126 K/uL (130-400); RDW Standard Deviation 40.9 fL (36.4-46.3); Red Blood Count 4.15 M/uL (4.20-5.40); White Blood Count 6.61 K/ul (4.8-10.8)
[2025-04-30 07:39] LABS: Anion Gap 6.0 (3-11); Blood Urea Nitrogen 14.0 mg/dl (6-23); Calcium 8.9 mg/dl (8.6-10.3); Carbon Dioxide 25.0 mmol/L (21-32); Chloride 92.0 mmol/L (98-107); Creatinine Clr Calc Pharmacy 60.9 ml/min; Glucose 112.0 mg/dl (70-99(Fasting)); Magnesium 2.1 mg/dl (1.7-2.4); Potassium 4.2 mmol/L (3.5-5.1); Sodium 123.0 mmol/L (136-145)
[2025-04-30] MEDS: cefTRIAXone SODIUM 2,000 MG/50 ML BAG IV SCH (08:06)
[2025-04-30] MEDS: AZITHROMYCIN 250 MG TAB PO SCH (08:07)
[2025-04-30] MEDS: LORazepam 0.5 MG TAB PO PRN (12:02)
[2025-04-30] MEDS: FUROSEMIDE INJ 20 MG/2 ML VIAL IV ONE (13:55)
[2025-04-30] MEDS ORDERED: GABAPENTIN 1200MG ALCOHOL WITHDRAWAL LOAD PO STA (14:08)
--- NOTE | 2025-04-30 14:26 | Hospitalist Progress Note ---
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 Patient has a significant alcohol history and is quite anxious currently. COPD exacerbation Bronchitis Patient presented with SOB x4 days CXR consistent with bronchitis, no evidence of PNA Labs revealed leukopenia (baseline for pt), VBG WNL, multiple lyte abnormalities as below Covid, flu, RSV negative Received ceftriaxone and methylprednisolone in ED Continue ceftriaxone daily and switch from Solu-Medrol q8hr to oral prednisone Add azithromycin 500mg x3 days Xopenex/atrovent nebs q4hr Budesonide and formoterol nebs bid Sputum culture if able ISP and flutter valve A fib with RVR Hypotension Likely secondary to acute illness, albuterol use, lyte abnormalities Rates 115s-150s with hypotension 90s/60s Received 2L NSS in the ED Continue to titrate metoprolol tartrate 25mg q6hr Lovenox 1mg/kg q12hr for anticoagulation Hold HCTZ and losartan per nephrology and cardiology Echo ordered and reviewed. Patient has a an ejection fraction of 60 to 65% Cardiology consulted: appreciate recs Hyponatremia Corrected sodium 122 on admission Received 2.5L NSS total Serum osmolality 256, urine osmolality 162, urine Na 24 Hold HCTZ per nephrology Trend BMPs Nephrology consult: appreciate recs Hypokalemia Hypomagnesemia K 3.0 and Mag 1.4 on admission Received 20meq IV KCl in the ED - add 40meq PO Received 2g IV Mag in the ED - add additional 2g IV Potassium is 4.2 today magnesium has been repleted. Keep potassium greater than 4 and magnesium greater than 2 Elevated lactic acid level Lactate 5.2-> 3.3 on admission Infectious work up pending including blood and urine cultures Continue antibiotics as above Follow cultures UTI UA +nitrite, leuk esterase, WBC, bacteria Patient denies dysuria On ceftriaxone as above Follow urine culture HCV cirrhosis Follows with [facility]R in Jul 2022 Last EGD and colonoscopy in May 2024 Ammonia 21 Low sodium diet 2g/day Tylenol max 2g/day Tobacco use disorder Nicotine patch Counseled on tobacco cessation Alcohol abuse Patient is at marked risk for alcohol withdrawal and seizures Will start alcohol withdrawal protocol with gabapentin and lorazepam DVT Prophylaxis: SQ lovenox for AC Code Status: FULL CODE PCP: Taco Echavarria I spent a total of 60 minutes coordinating, documenting and providing care for this patient. Admission and Anticipated Discharge Date Admission Date: April 29, 2025 Subjective Chart and data reviewed. Patient seen in the telemetry unit with her significant other. Patient is significantly anxious. She has a history of alcohol abuse. Her significant other tells me she usually has 5-6 alcoholic rum and Cokes a day. She was given Ativan x 1. She remains in A-fib with a rapid ventricular response. Appreciate nephrology and cardiology input. She remains hyponatremic at 123. Hydrochlorothiazide has been discontinued per nephrology. She denies chest pain. She is coughing and wheezing. No sputum production. No nausea or vomiting. Physical Exam Physical Exam: General- adult elderly female seen at bedside with her significant other and nursing. Nephrology has come into the room as well. Patient is quite anxious and tremulous. Head- atraumatic Eyes- PERRL, EOMI, anicteric ENT- oropharynx clear Neck- supple, no JVD, no adenopathy, no thyromegaly; carotids +2/2, no bruits appreciated Lungs-scattered wheezing Heart-irregularly irregular at 110 bpm; Abdomen- normal bowel sounds, soft, nontender, no masses or hepatosplenomegaly Extremities- no pretibial edema, no calf tenderness; peripheral pulses intact Neuro- alert, oriented PERRL, EOMI; no facial palsy; no dysarthria; very anxious Skin- warm & dry Results & Data Results & Data Vital Signs (Past 12 Hours) Vital Signs Temp Pulse Resp BP BP Pulse Ox O2 Del Method 04/30/25 11:07 113 H 18 99 Room Air 04/30/25 09:59 36.3 C L 102 H 16 134/90 100 Room Air 04/30/25 08:46 Room Air 04/30/25 07:30 37.2 C 102 H 16 131/88 100 Room Air 04/30/25 07:07 94 H 16 Room Air 04/30/25 03:59 36.7 C 113 H 18 130/88 97 Room Air Diagnostic Findings Laboratory Results WBC 6.61 K/ul (4.8-10.8) 04/30/25 06:37 RBC 4.15 M/uL (4.20-5.40) L 04/30/25 06:37 Hgb 11.6 g/dl (12.0-16.0) L D 04/30/25 06:37 Hct 33.7 % (37.0-47.0) L 04/30/25 06:37 MCV 81.2 fL (80.0-100.0) 04/30/25 06:37 MCH 28.0 pg (25.0-34.0) 04/30/25 06:37 MCHC 34.4 g/dL (32.0-36.0) 04/30/25 06:37 RDW Std Deviation 40.9 fL (36.4-46.3) 04/30/25 06:37 RDW Coeff of Shima 14.0 % (11.5-14.5) 04/30/25 06:37 Plt Count 126 K/uL (130-400) L 04/30/25 06:37 MPV 10.1 fL (9.4-12.4) 04/30/25 06:37 Immature Gran % (Auto) 0.6 % 04/29/25 07:12 Neut % (Auto) 82.3 % 04/29/25 07:12 Lymph % (Auto) 12.2 % 04/29/25 07:12 [place] % (Auto) 4.9 % 04/29/25 07:12 Eos % (Auto) 0.0 % 04/29/25 07:12 Baso % (Auto) 0.0 % 04/29/25 07:12 Neut # (Auto) 2.83 K/uL (1.40-6.50) 04/29/25 07:12 Lymph # (Auto) 0.42 K/uL (1.20-3.40) L 04/29/25 07:12 [place] # (Auto) 0.17 K/uL (0.11-0.59) 04/29/25 07:12 Eos # (Auto) 0.00 K/uL (0.00-0.50) 04/29/25 07:12 Baso # (Auto) 0.00 K/uL (0.00-0.20) 04/29/25 07:12 Immature Gran # (Auto) 0.02 K/uL (0.01-0.20) 04/29/25 07:12 PT 11.2 Seconds (9.0-12.0) 04/29/25 07:12 INR 1.0 (0.9-1.1) 04/29/25 07:12 APTT 23 Seconds (21-31) 04/29/25 07:12 PTT Ratio 0.9 04/29/25 07:12 VBG pH 7.45 (7.36-7.41) H 04/29/25 08:01 VBG pCO2 41 mmHg (38-50) 04/29/25 08:01 VBG pO2 31 mmHg 04/29/25 08:01 VBG HCO3 29 mmol/L 04/29/25 08:01 VBG O2 Saturation < 60.0 % 04/29/25 08:01 VBG Base Excess 4.1 mEq/L 04/29/25 08:01 Sodium 123 mmol/L (136-145) L 04/30/25 06:37 Potassium 4.2 mmol/L (3.5-5.1) 04/30/25 06:37 Chloride 92 mmol/L (98-107) L 04/30/25 06:37 Carbon Dioxide 25 mmol/L (21-32) 04/30/25 06:37 Anion Gap 6 (3-11) 04/30/25 06:37 BUN 14 mg/dl (6-23) 04/30/25 06:37 Creatinine 0.70 mg/dl (0.6-1.2) 04/30/25 06:37 Est Cr Clr Drug Dosing 60.9 ml/min 04/30/25 06:37 eGFR 90.70 04/30/25 06:37 BUN/Creatinine Ratio 20.0 (10-20) 04/30/25 06:37 Glucose 112 mg/dl (70-99(Fasting)) H 04/30/25 06:37 Osmolality 256 mOsm/kg (280-300) L 04/29/25 07:12 Lactate 2.1 mmol/L (0.4-2.0) H* 04/29/25 19:18 Calcium 8.9 mg/dl (8.6-10.3) 04/30/25 06:37 Phosphorus 3.1 mg/dl (2.5-4.9) 04/30/25 06:37 Magnesium 2.1 mg/dl (1.7-2.4) 04/30/25 06:37 Total Bilirubin 1.6 mg/dl (0.2-1.0) H 04/29/25 07:12 AST 31 U/L (13-39) 04/29/25 07:12 ALT 12 U/L (7-52) 04/29/25 07:12 Alkaline Phosphatase 64 U/L (34-104) 04/29/25 07:12 Ammonia 21.0 umol/L (18-72) 04/29/25 08:01 Troponin I High Sens 24.6 pg/ml (0-14) H 04/29/25 09:19 C-Reactive Protein < 0.50 mg/dl (0-0.5) 04/29/25 07:12 Total Protein 7.8 gm/dl (6.0-8.3) 04/29/25 07:12 Albumin 3.3 gm/dl (3.4-5.0) L 04/29/25 19:18 Globulin 3.4 gm/dl (2.5-4.0) 04/29/25 07:12 Albumin/Globulin Ratio 1.3 (0.9-2) 04/29/25 07:12 Procalcitonin < 0.02 ng/ml (0-0.5) 04/29/25 07:12 TSH 0.857 uIu/ml (0.300-4.500) 04/29/25 07:12 Urine Color Yellow 04/29/25 11:23 Urine Appearance Clear (Clear) 04/29/25 11:23 Urine pH 6.0 (4.5-7.5) 04/29/25 11:23 Ur Specific [place] 1.006 (1.000-1.030) 04/29/25 11:23 Urine Protein Negative (Negative) 04/29/25 11:23 Urine Glucose (UA) Negative (Negative) 04/29/25 11:23 Urine Ketones Negative (Negative) 04/29/25 11:23 Urine Blood 1+ (Negative) H 04/29/25 11:23 Urine Nitrite Positive (Negative) A 04/29/25 11:23 Urine Bilirubin Negative (Negative) 04/29/25 11:23 Urine Urobilinogen Negative (Negative) 04/29/25 11:23 Ur Leukocyte Esterase 1+ (Negative) H 04/29/25 11:23 Urine WBC (Auto) 6-10 /hpf (0-5) H 04/29/25 11:23 Urine RBC (Auto) 0-2 /hpf (0-2) 04/29/25 11:23 U Hyaline Cast (Auto) 0-2 /lpf (0-2) 04/29/25 11:23 U Epithel Cells (Auto) 0-2 /hpf (0-2) 04/29/25 11:23 Urine Bacteria (Auto) 4+ (None Seen) H 04/29/25 11:23 Urine Osmolality 162 mOsm/kg (500-800) L 04/29/25 11:23 Ur Random Sodium 24 mmol/L 04/29/25 11:23 Urine Comment 04/29/25 11:23 Urine Opiates Screen Pos (Neg) H 04/29/25 11:23 Ur Methadone, Qual Pos (Neg) H 04/29/25 11:23 Urine Fentanyl Screen Neg (Neg) 04/29/25 11:23 Urine Barbiturates Neg (Neg) 04/29/25 11:23 Ur Phencyclidine (PCP) Neg (Neg) 04/29/25 11:23 U Amphetamin/Meth Scrn Neg (Neg) 04/29/25 11:23 MDMA (Ecstasy) Screen Neg (Neg) 04/29/25 11:23 U Benzodiazepines Scrn Neg (Neg) 04/29/25 11:23 Ur Cocaine Metabolite Neg (Neg) 04/29/25 11:23 U Marijuana (THC) Screen Neg (Neg) 04/29/25 11:23 SARS-CoV-2 (PCR) NEGATIVE (Negative) 04/29/25 08:38 Influenza Type A (PCR) Negative (Neg) 04/29/25 08:38 Influenza Type B (PCR) Negative (Neg) 04/29/25 08:38 RSV (RT-PCR) Negative (Neg) 04/29/25 08:38 Impressions Chest X-Ray 04/29/25 07:03 EXAM: XR chest 1V portable CLINICAL HISTORY: Dysrhythmia TECHNIQUE: An X-ray image of the chest is obtained in PA projection. COMPARISON: 10/20/2021 CR, CT dated 10/15/2024 was reviewed. FINDINGS: Pulmonary Parenchyma: Bilateral prominent bronchovascular/interstitial markings. Small atelectatic band traversing in the right perihilar region. No evidence of consolidation or focal opacity seen. No pulmonary nodule seen. No evidence of pleural effusion or pleural thickening. Heart and Mediastinum: Heart size and shape are normal. No mediastinal widening or masses. No hilar or mediastinal lymphadenopathy. Bony Thorax: Bony thorax appears intact without fractures or deformities. Soft Tissues: Soft tissues overlying the chest wall are unremarkable. IMPRESSION: 1. No acute cardiopulmonary abnormality seen. 2. Bilateral prominent bronchovascular/interstitial markings. Bronchitis suggest clinical correlation. 3. Small atelectatic band traversing in the right perihilar region. 4. Comparing the previous x-ray dated 10/20/2021 the findings remain stable. Electronically signed by Milad Smith 04-29-2025 07:58 AM
[2025-04-30] MEDS: GABAPENTIN 600 MG TAB PO ONE (15:03)
--- NOTE | 2025-04-30 15:16 | Cardiology Progress Note ---
Date of Service April 30, 2025 Assessment & Plan (1) Atrial fibrillation with rapid ventricular response: (2) Hypokalemia: (3) Hypomagnesemia: (4) Acute hyponatremia: (5) Acute bronchitis: (6) Acute exacerbation of chronic obstructive pulmonary disease: (7) Acute alteration in mental status: Plan 75 yo woman presenting with COPD exacerbation Consult - recurrent Afib/flutter with RVR * Afib x several weeks * Electrolyte abnormalities- hyponatremia, hypokalemia, hypomagnesemic * Na + 123 - improving from 121 * TSH 0.8 * CXR - no masses * HCTZ (OFF) * K+ 4.2 - was 3.0 * K+ goal 4.5-5 * Kdur 40 meq po BID on 04-30-2025 * Mag++ 2.1 - was 1.4 - daily repletion * Mag goal >2 * Anticoagulation - held - high fall risk; high bleeding risk - cirrhosis with varices * CHADs VASc 4 * Continue ASA 81 MG po per day * ? candidate for left atrial appendage occlusion * Increase Lopressor 50 mg po Q 8 hrs * ECHO - LVEF 60%, Mild MR * UA - no clear UTI * Cultures - NGTD * 52 min spent addressing challenges, educating and advancing daily plan of care Sriram Kenyon Admission and Anticipated Discharge Date Admission Date: April 29, 2025 Subjective Events overnight: * afib - 90-100s Subjective * No complaints Review of Systems Review of Systems: All systems reviewed & are unremarkable except as noted in HPI & below Physical Exam Physical Exam: No elevation in JVP S1S2 2/6 systolic murmur CTA B No c/c/e Warm and perfusing [place] Results & Data Vital Signs (Past 12 Hours) Vital Signs Temp Pulse Resp BP BP Pulse Ox O2 Del Method 04/30/25 11:07 113 H 18 99 Room Air 04/30/25 09:59 36.3 C L 102 H 16 134/90 100 Room Air 04/30/25 08:46 Room Air 04/30/25 07:30 37.2 C 102 H 16 131/88 100 Room Air 04/30/25 07:07 94 H 16 Room Air 04/30/25 03:59 36.7 C 113 H 18 130/88 97 Room Air Laboratory Results CBC 04/30/25 Range/Units 06:37 WBC 6.61 (4.8-10.8) K/ul RBC 4.15 L (4.20-5.40) M/uL Hgb 11.6 L D (12.0-16.0) g/dl Hct 33.7 L (37.0-47.0) % Plt Count 126 L (130-400) K/uL Comprehensive Metabolic Panel 04/29/25 04/29/25 04/29/25 Range/Units 14:27 19:18 21:31 Sodium 123 L 121 L 122 L (136-145) mmol/L Potassium 3.8 D 4.4 4.4 (3.5-5.1) mmol/L Chloride 90 L 91 L 91 L (98-107) mmol/L Carbon Dioxide 24 23 25 (21-32) mmol/L BUN 9 11 12 (6-23) mg/dl Creatinine 0.69 0.67 0.60 (0.6-1.2) mg/dl Glucose 162 H 115 H 122 H (70-99(Fasting)) mg/dl Calcium 8.7 8.8 8.7 (8.6-10.3) mg/dl Albumin 3.3 L (3.4-5.0) gm/dl 04/30/25 Range/Units 06:37 Sodium 123 L (136-145) mmol/L Potassium 4.2 (3.5-5.1) mmol/L Chloride 92 L (98-107) mmol/L Carbon Dioxide 25 (21-32) mmol/L BUN 14 (6-23) mg/dl Creatinine 0.70 (0.6-1.2) mg/dl Glucose 112 H (70-99(Fasting)) mg/dl Calcium 8.9 (8.6-10.3) mg/dl Albumin (3.4-5.0) gm/dl Intake and Output 04/30/25 04/30/25 04/30/25 06:59 14:59 22:59 Intake Total 740 / 4780 510.833 / 510.833 Balance 740 / 4780 510.833 / 510.833 Intake: IV 500 / 4250 510.833 / 510.833 Sodium Chloride 0.9% 500 ml @ 500 / 500 460.833 / 460.833 50 mls/hr IV .Q10H [facility] Rx#: [id number] cefTRIAXone SODIUM 2,000 mg In 50 / 50 50 ml @ 100 mls/hr IV Q24H [facility] Rx#:[id number] Oral 240 / 530 Other: # Unmeasured Voids 1 Weight 56.8 kg Weight Measurement Method Built in [facility] Diagnostic Findings ECHOcardiogram - 04/29/2025 LVEF 60-65% LA - moderate dilated MR - mild TR - mild to moderate RV normal size and function Medications Administered Current Inpatient Medications Acetaminophen (Acetaminophen 500 Mg Tab) 500 mg PO Q6 PRN PRN Reason: Pain or Fever Stop: 05/29/25 11:33 Aspirin (Aspirin 81 Mg Ectab) 81 mg PO DAILY [facility] Stop: 05/29/25 11:33 Last Admin: 04/30/25 08:07 Dose: 81 mg Azithromycin (Azithromycin 250 Mg Tab) 500 mg PO QAM [facility] Stop: 05/01/25 09:01 Last Admin: 04/30/25 08:07 Dose: 500 mg Budesonide (Budesonide 0.5 Mg/2 Ml Vial (Pulmicort)) 0.5 mg NEB BIDR [facility] Stop: 05/29/25 10:04 Last Admin: 04/30/25 07:07 Dose: 0.5 mg Enoxaparin Sodium (Enoxaparin Inj 60 Mg/0.6 Ml Syr) 60 mg SQ Q12H [facility] Stop: 05/29/25 11:59 Last Admin: 04/30/25 11:52 Dose: Not Given Folic Acid (Folic Acid 1 Mg Tab) 1 mg PO QAM [facility] Stop: 05/31/25 08:59 Formoterol Fumarate (Formoterol 20 Mcg/2 Ml Vial) 20 mcg NEB BIDR [facility] Stop: 05/29/25 10:04 Last Admin: 04/30/25 07:07 Dose: 20 mcg Gabapentin (Gabapentin 600 Mg Tab) 600 mg PO Q6H [facility] Stop: 05/01/25 02:16 Gabapentin (Gabapentin 600 Mg Tab) 600 mg PO Q8H [facility] Stop: 05/02/25 02:16 Gabapentin (Gabapentin 600 Mg Tab) 600 mg PO Q12H [facility] Stop: 05/03/25 02:16 Gabapentin (Gabapentin 600 Mg Tab) 600 mg PO Q24H [facility] Stop: 05/04/25 02:16 Ceftriaxone Sodium (Rocephin) 2,000 mg in 50 mls @ 100 mls/hr IV Q24H [facility] Stop: 05/05/25 07:59 Last Infusion: 04/30/25 08:37 Dose: Infused Methylprednisolone 40 mg/ (Syringe) 0.64 mls @ 1.5 mls/min IV Q8 [facility] Stop: 05/29/25 15:59 Last Admin: 04/30/25 13:35 Dose: 1.5 mls/min Ipratropium [place] (Ipratropium [place] Neb Soln 0.02% 0.5mg/2.5ml Vial) 0.5 mg NEB Q4R [facility] Stop: 05/29/25 14:59 Last Admin: 04/30/25 11:07 Dose: 0.5 mg Levalbuterol HCl (Levalbuterol 1.25 Mg/3 Ml Neb) 1.25 mg NEB Q4R [facility] Stop: 05/29/25 14:59 Last Admin: 04/30/25 11:07 Dose: 1.25 mg Lorazepam (Lorazepam 0.5 Mg Tab) 0.5 mg PO TID PRN PRN Reason: Anxiety Stop: 05/30/25 11:55 Last Admin: 04/30/25 12:02 Dose: 0.5 mg Lorazepam (Lorazepam 2 Mg/1 Ml Vial) 1 mg IV ONE PRN; Protocol PRN Reason: EtoH Withdrawal AWSS 6-10 Magnesium Hydroxide (Magnesium Hydroxide Susp 30 Ml Udc) 30 ml PO Q12H PRN PRN Reason: Constipation Stop: 05/29/25 11:33 Metoprolol Tartrate (Metoprolol Tartrate 50 Mg Tab) 50 mg PO Q8 [facility] Stop: 05/30/25 21:59 Miscellaneous (Remove Nicoderm Patch) 1 each N/A DAILY@0859 [facility] Stop: 05/29/25 11:46 Last Admin: 04/30/25 08:07 Dose: 1 each Multivitamins (Multivitamin Tab) 1 tab PO QAM [facility] Stop: 05/31/25 08:59 Nicotine (Nicotine 7 Mg/24 Hr Tdsy) 1 patch TD QAM [facility] Stop: 05/29/25 11:33 Last Admin: 04/30/25 08:08 Dose: 1 patch Ondansetron HCl (Ondansetron Inj 2 Mg/Ml 2 Ml Vial) 4 mg IV Q6H PRN PRN Reason: Nausea Stop: 05/29/25 11:33 Polyethylene Glycol (Polyethylene (Miralax) 17 Gm Pack) 17 gm PO DAILY PRN PRN Reason: Constipation Stop: 05/29/25 11:33 Thiamine HCl (Thiamine Hcl 100 Mg Tab) 100 mg PO QAM [facility] Stop: 05/31/25 08:59 PG Care Time/CCT Total # of Minutes Spent Total Time Spent with Patient: Total time spent is greater than 50% in coordination of care (as documented) at patient's floor/unit and/or counseling patient: Coding Level of Care Code 96252 SUB INP/OBS CARE 3/50MIN Diagnoses Atrial fibrillation with rapid ventricular response I48.91 Hypokalemia E87.6 Hypomagnesemia E83.42 Acute hyponatremia E87.1 Acute bronchitis J20.9 Acute exacerbation of chronic obstructive pulmonary disease J44.1 Acute alteration in mental status R41.82
[2025-04-30] MEDS: THIAMINE HCL 100 MG/ML 2 ML VIAL IM ONE (16:11)
[2025-04-30] MEDS: GABAPENTIN 600 MG TAB PO SCH (22:12)
[2025-04-30] MEDS: METOPROLOL TARTRATE 50 MG TAB PO SCH (22:12)
[2025-04-30] MEDS: METOPROLOL TARTRATE 1 MG/ML VIAL IV STA (22:59)
[2025-04-30 23:45] LABS: Anion Gap 6.0 (3-11); Base Excess VBG 2.8 mEq/L; Blood Urea Nitrogen 19.0 mg/dl (6-23); Calcium 9.1 mg/dl (8.6-10.3); Carbon Dioxide 25.0 mmol/L (21-32); Chloride 91.0 mmol/L (98-107); Creatinine Clr Calc Pharmacy 62.7 ml/min; Glucose 132.0 mg/dl (70-99(Fasting)); HCO3 VBG 26 mmol/L; Oxygen Saturation VBG 96.3 %; PCO2 VBG 35 mmHg (38-50); PO2 VBG 73 mmHg; Potassium 4.1 mmol/L (3.5-5.1); Sodium 122.0 mmol/L (136-145); pH VBG 7.48 (7.36-7.41)
--- NOTE | 2025-05-01 08:00 | Cardiology Progress Note ---
Date of Service May 01, 2025 Assessment & Plan (1) Atrial fibrillation with rapid ventricular response: (2) Hypokalemia: (3) Hypomagnesemia: (4) Acute hyponatremia: (5) Acute bronchitis: (6) Acute exacerbation of chronic obstructive pulmonary disease: Plan 75 yo woman presenting with COPD exacerbation Consult - recurrent Afib/flutter with RVR * Afib x several weeks * Electrolyte abnormalities- hyponatremia, hypokalemia, hypomagnesemic * Na + 122 - Tolvaptam? 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 candidate for left atrial appendage occlusion * Afib with RVR - HR still uncontrolled * Continue Lopressor 50 mg po Q 8 hrs * Add Digoxin - load 0.250 mg IV x 1 now; 0.250 mg IV in 5 hrs - start Digoxin 0.125 mg po per day on 05/02/2025 * Goal HR <100 BPM at rest * ECHO - LVEF 60%, Mild MR * UA - no clear UTI * Cultures - NGTD * 50 min spent addressing challenges, educating and advancing daily plan of care Sriram Kenyon Admission and Anticipated Discharge Date Admission Date: April 29, 2025 Subjective Events Overnight: * Telemetry - Afib with RVR Subjective: * No complaints Review of Systems Review of Systems: All systems reviewed & are unremarkable except as noted in HPI & below Physical Exam Physical Exam: No elevation in JVP S1S2 2/6 systolic murmur CTA B No c/c/e Warm and perfusing [place] Results & Data Vital Signs (Past 12 Hours) Vital Signs Temp Pulse Pulse Resp BP BP Pulse Ox 05/01/25 07:26 36.6 C 135 H 20 117/66 99 05/01/25 07:24 129 H 05/01/25 07:17 84 16 98 05/01/25 03:25 36.5 C 75 18 117/78 97 04/30/25 23:52 108 H 04/30/25 23:14 110 H 116/80 04/30/25 22:59 135 H 120/70 04/30/25 22:43 36.3 C L 112 H 18 126/70 97 04/30/25 22:25 95 H 18 98 04/30/25 21:00 O2 Del Method 05/01/25 07:26 Room Air 05/01/25 07:24 05/01/25 07:17 Room Air 05/01/25 03:25 Room Air 04/30/25 23:52 04/30/25 23:14 04/30/25 22:59 04/30/25 22:43 Room Air 04/30/25 22:25 Room Air 04/30/25 21:00 Room Air Laboratory Results Comprehensive Metabolic Panel 04/30/25 Range/Units 23:09 Sodium 122 L (136-145) mmol/L Potassium 4.1 (3.5-5.1) mmol/L Chloride 91 L (98-107) mmol/L Carbon Dioxide 25 (21-32) mmol/L BUN 19 (6-23) mg/dl Creatinine 0.68 (0.6-1.2) mg/dl Glucose 132 H (70-99(Fasting)) mg/dl Calcium 9.1 (8.6-10.3) mg/dl Albumin 3.3 L (3.4-5.0) gm/dl Intake and Output 04/30/25 05/01/25 05/01/25 22:59 06:59 14:59 Other: Weight 56.8 kg Weight Measurement Method Built in [facility] Diagnostic Findings ECHOcardiogram: 04-29-2025 LVEF 60-65% MR - Mild LA - Moderately dilated Medications Administered Current Inpatient Medications Acetaminophen (Acetaminophen 500 Mg Tab) 500 mg PO Q6 PRN PRN Reason: Pain or Fever Stop: 05/29/25 11:33 Aspirin (Aspirin 81 Mg Ectab) 81 mg PO DAILY PORTIA Stop: 05/29/25 11:33 Last Admin: 04/30/25 08:07 Dose: 81 mg Azithromycin (Azithromycin 250 Mg Tab) 500 mg PO QAM [facility] Stop: 05/01/25 09:01 Last Admin: 04/30/25 08:07 Dose: 500 mg Budesonide (Budesonide 0.5 Mg/2 Ml Vial (Pulmicort)) 0.5 mg NEB BIDR PORTIA Stop: 05/29/25 10:04 Last Admin: 05/01/25 07:16 Dose: 0.5 mg Enoxaparin Sodium (Enoxaparin Inj 60 Mg/0.6 Ml Syr) 60 mg SQ Q12H [facility] Stop: 05/29/25 11:59 Last Admin: 04/30/25 23:33 Dose: Not Given Folic Acid (Folic Acid 1 Mg Tab) 1 mg PO QAM [facility] Stop: 05/31/25 08:59 Formoterol Fumarate (Formoterol 20 Mcg/2 Ml Vial) 20 mcg NEB BIDR [facility] Stop: 05/29/25 10:04 Last Admin: 05/01/25 07:16 Dose: 20 mcg Gabapentin (Gabapentin 600 Mg Tab) 600 mg PO Q8H [facility] Stop: 05/02/25 06:01 Gabapentin (Gabapentin 600 Mg Tab) 600 mg PO Q12H [facility] Stop: 05/03/25 06:01 Gabapentin (Gabapentin 600 Mg Tab) 600 mg PO Q24H [facility] Stop: 05/04/25 06:01 Ceftriaxone Sodium (Rocephin) 2,000 mg in 50 mls @ 100 mls/hr IV Q24H [facility] Stop: 05/05/25 07:59 Last Infusion: 04/30/25 08:37 Dose: Infused Methylprednisolone 40 mg/ (Syringe) 0.64 mls @ 1.5 mls/min IV Q8 [facility] Stop: 05/29/25 15:59 Last Admin: 05/01/25 06:22 Dose: Not Given Ipratropium [place] (Ipratropium [place] Neb Soln 0.02% 0.5mg/2.5ml Vial) 0.5 mg NEB Q4R [facility] Stop: 05/29/25 14:59 Last Admin: 05/01/25 07:16 Dose: Not Given Levalbuterol HCl (Levalbuterol 1.25 Mg/3 Ml Neb) 1.25 mg NEB Q4R [facility] Stop: 05/29/25 14:59 Last Admin: 05/01/25 07:16 Dose: Not Given Lorazepam (Lorazepam 0.5 Mg Tab) 0.5 mg PO TID PRN PRN Reason: Anxiety Stop: 05/30/25 11:55 Last Admin: 04/30/25 12:02 Dose: 0.5 mg Lorazepam (Lorazepam 2 Mg/1 Ml Vial) 1 mg IV ONE PRN; Protocol PRN Reason: EtoH Withdrawal AWSS 6-10 Magnesium Hydroxide (Magnesium Hydroxide Susp 30 Ml Udc) 30 ml PO Q12H PRN PRN Reason: Constipation Stop: 05/29/25 11:33 Metoprolol Tartrate (Metoprolol Tartrate 50 Mg Tab) 50 mg PO Q8 [facility] Stop: 05/30/25 21:59 Last Admin: 05/01/25 06:22 Dose: Not Given Miscellaneous (Remove Nicoderm Patch) 1 each N/A DAILY@0859 [facility] Stop: 05/29/25 11:46 Last Admin: 04/30/25 08:07 Dose: 1 each Multivitamins (Multivitamin Tab) 1 tab PO QAM [facility] Stop: 05/31/25 08:59 Nicotine (Nicotine 7 Mg/24 Hr Tdsy) 1 patch TD QAM [facility] Stop: 05/29/25 11:33 Last Admin: 04/30/25 08:08 Dose: 1 patch Ondansetron HCl (Ondansetron Inj 2 Mg/Ml 2 Ml Vial) 4 mg IV Q6H PRN PRN Reason: Nausea Stop: 05/29/25 11:33 Polyethylene Glycol (Polyethylene (Miralax) 17 Gm Pack) 17 gm PO DAILY PRN PRN Reason: Constipation Stop: 05/29/25 11:33 Thiamine HCl (Thiamine Hcl 100 Mg Tab) 100 mg PO QAM [facility] Stop: 05/31/25 08:59 PG Care Time/CCT Total # of Minutes Spent Total Time Spent with Patient: Total time spent is greater than 50% in coordination of care (as documented) at patient's floor/unit and/or counseling patient: Coding Level of Care Code 57601 SUB INP/OBS CARE 3/50MIN Diagnoses Atrial fibrillation with rapid ventricular response I48.91 Hypokalemia E87.6 Hypomagnesemia E83.42 Acute hyponatremia E87.1 Acute bronchitis J20.9 Acute exacerbation of chronic obstructive pulmonary disease J44.1
[2025-05-01] MEDS: THIAMINE HCL 100 MG TAB PO SCH (08:19)
[2025-05-01] MEDS: FOLIC ACID 1 MG TAB PO SCH (08:20)
[2025-05-01] MEDS: MULTIVITAMIN TAB PO SCH (08:20)
[2025-05-01 08:59] LABS: Hematocrit (blood only) 34.6 % (37.0-47.0); Hemoglobin 12.0 g/dl (12.0-16.0); Mean Corpuscular Hemoglobin 28.4 pg (25.0-34.0); Mean Corpuscular Volume 82.0 fL (80.0-100.0); Platelet Count 129 K/uL (130-400); RDW Standard Deviation 42.8 fL (36.4-46.3); Red Blood Count 4.22 M/uL (4.20-5.40); White Blood Count 5.03 K/ul (4.8-10.8)
[2025-05-01 09:23] LABS: Anion Gap 10.0 (3-11); Blood Urea Nitrogen 19.0 mg/dl (6-23); Calcium 9.3 mg/dl (8.6-10.3); Carbon Dioxide 25.0 mmol/L (21-32); Chloride 89.0 mmol/L (98-107); Creatinine Clr Calc Pharmacy 54.6 ml/min; Glucose 164.0 mg/dl (70-99(Fasting)); Magnesium 1.9 mg/dl (1.7-2.4); Potassium 4.3 mmol/L (3.5-5.1); Sodium 124.0 mmol/L (136-145)
--- NOTE | 2025-05-01 11:00 | Nephrology Progress Note ---
Date of Service May 01, 2025 Assessment & Plan Admission and Anticipated Discharge Date Admission Date: April 29, 2025 Subjective Assessment & Plan (1) Acute hyponatremia: Patient with prior mild Hyponatremia history. oct and nov showed na 132. Given h/o Cirrhosis and Also COPD she is at very high risk for hyponatremia. She was on HCTZ--should never be used in liver cirrhosis patient. Only use Loop diuretics and Aldactone. Also her protein/solid food intake was lower than before. Admission Na was 121 and improved to 124 with NS. Not really possible to interpret Urine na and urine osm in Cirrhosis patient with HCTZ on board. However urine osm was fairly low at 163--QUite possible she was drinking lot of liquids. For now will assume Low Na + is from HCTZ. Even after stopping will take many days for it get better. Now Lactic Acid Normal. However oral intake is still low. Not sure she is following FFR of 1200 currently. give 1000 ml NS today and one dose of lasix 20 mg iv x 1 like yesterday. Give 20 meq kcl. BMP twice daily. given Cirrhosis will not add Urea--Doubt she will take it anyway as very poor intake and some Nausea For now FFR 1200 ml per day. Repeat urine osm and Urine na now. (2) Hypokalemia: Sec to HCTZ and Poor oral intake. Normal quite quickly. 3 Cirrhosis: Sec to Hep C . makes her prone to Low na. Avoid HCTZ permanently. Can use Loop diuretics and Aldactone S-----NO new issues. Poor Po intake ROS----see HPI. 12 systems reviewed and negative Physical Exam Physical Exam: General: Alert but eyes closed and barely talked No acute distress. HEENT: Normocephalic. Atraumatic. MM moist. Neck: No JVD. Supple Heart: Irregularly irregular No murmur appreciated. Lungs: Diminished. Decreased. expiratory wheezing Abdomen: Soft. Nontender. Extremities:very Tanned. venous Stasis changes. No edema. Results & Data Vital Signs (Past 12 Hours) Vital Signs Temp Pulse Pulse Resp BP BP Pulse Ox 05/01/25 10:30 80 18 98 05/01/25 07:26 36.6 C 135 H 20 117/66 99 05/01/25 07:24 129 H 05/01/25 07:17 84 16 98 05/01/25 03:25 36.5 C 75 18 117/78 97 04/30/25 23:52 108 H 04/30/25 23:14 110 H 116/80 04/30/25 22:59 135 H 120/70 O2 Del Method 05/01/25 10:30 Room Air 05/01/25 07:26 Room Air 05/01/25 07:24 05/01/25 07:17 Room Air 05/01/25 03:25 Room Air 04/30/25 23:52 04/30/25 23:14 04/30/25 22:59
[2025-05-01] MEDS ORDERED: LEVALBUTEROL 1.25 MG/3 ML NEB NEB PRN (11:16)
[2025-05-01] MEDS ORDERED: IPRATROPIUM BROMIDE NEB SOLN 0.02% 0.5MG/2.5ML VIAL NEB PRN (11:17)
[2025-05-01] MEDS: POTASSIUM CHLORIDE CRTAB 20 MEQ TABCR PO STA (11:39)
[2025-05-01] MEDS: SODIUM CHLORIDE 0.9% 1,000 ML IV SCH (11:39)
[2025-05-01] MEDS: GABAPENTIN 600 MG TAB PO SCH (13:38)
--- NOTE | 2025-05-01 14:33 | Hospitalist Progress Note ---
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 Patient has a significant alcohol history. COPD exacerbation Bronchitis Patient presented with SOB x4 days CXR consistent with bronchitis, no evidence of PNA Labs revealed leukopenia (baseline for pt), VBG WNL, multiple lyte abnormalities as below Covid, flu, RSV negative Received ceftriaxone and methylprednisolone in ED Discontinue ceftriaxone daily and switch from Solu-Medrol q8hr to continue oral prednisone Add azithromycin 500mg x3 days Xopenex/atrovent nebs q4hr Budesonide and formoterol nebs bid Sputum culture if able ISP and flutter valve A fib with RVR Hypotension Likely secondary to acute illness, albuterol use, lyte abnormalities Rates 115s-150s with hypotension 90s/60s Received 2L NSS in the ED Continue to titrate metoprolol tartrate 25mg q6hr Lovenox 1mg/kg q12hr for anticoagulation Hold HCTZ and losartan per nephrology and cardiology Echo ordered and reviewed. Patient has a an ejection fraction of 60 to 65% Cardiology consulted: appreciate recs: Risks of roasterman anticoagulation appear greater than the benefit (ambulatory dysfunction with recurrent falls, cirrhosis with varices, history of thrombocytopenia), ? candidate for left atrial appendage occlusion. * Hyponatremia Corrected sodium 122 on admission Received 2.5L NSS total Serum osmolality 256, urine osmolality 162, urine Na 24 Hold HCTZ indefinitely per nephrology Trend BMPs. Na 124 on last check Nephrology consult: appreciate recs Hypokalemia Hypomagnesemia K 3.0 and Mag 1.4 on admission Received 20meq IV KCl in the ED - add 40meq PO Received 2g IV Mag in the ED - add additional 2g IV Potassium is 4.3 today magnesium has been repleted. Keep potassium greater than 4 and magnesium greater than 2 Elevated lactic acid level Lactate 5.2-> 3.3-->1.5 Infectious work up pending including blood and urine cultures Continue antibiotics as above Urine Culture - Final Three types or organisms present, all moderate counts probable skin pari. No further identifications or sensitivities to follow. UTI ruled out UA +nitrite, leuk esterase, WBC, bacteria Patient denies dysuria Discontinue ceftriaxone Urine Culture - Final Three types or organisms present, all moderate counts probable skin pari. No further identifications or sensitivities to follow. HCV cirrhosis Follows with [facility] in Jul 2022 Last EGD and colonoscopy in May 2024 Ammonia 21 Low sodium diet 2g/day Tylenol max 2g/day Tobacco use disorder Nicotine patch Counseled on tobacco cessation Alcohol abuse Patient is at marked risk for alcohol withdrawal and seizures Continue alcohol withdrawal protocol with gabapentin and lorazepam DVT Prophylaxis: SQ lovenox for AC Code Status: FULL CODE PCP: Taco Echavarria I spent a total of 52 minutes coordinating, documenting and providing care for this patient. Admission and Anticipated Discharge Date Admission Date: April 29, 2025 Subjective Chart, data and vital signs reviewed. Patient is seen with her significant other. Patient has been refusing medications. She initially refused her metoprolol earlier this morning but agreed to take it later. Appreciate cardiology and nephrology input. Sodium levels are increasing. She remains off hydrochlorothiazide. She denies tremulousness. She is a heavy drinker. Alcohol withdrawal protocol in place. Heart rate in the 0936-1846 range but improved now. She feels less short of breath and feels that the wheezing has resolved. Physical Exam Physical Exam: General- adult elderly female seen at bedside with her significant other and nursing. Patient is less anxious and no tremulous. Eyes- PERRL, EOMI ENT- oropharynx clear Neck- supple, no JVD, no adenopathy, Lungs-essentially clear this a.m. Heart-irregularly irregular at 104 bpm; Abdomen- normal bowel sounds, soft, nontender, no masses or hepatosplenomegaly Extremities- no pretibial edema, no calf tenderness; peripheral pulses intact Neuro- alert, oriented PERRL, EOMI; no facial palsy; no dysarthria; less anxious Skin- warm & dry Results & Data Results & Data Vital Signs (Past 12 Hours) Vital Signs Temp Pulse Pulse Resp BP Pulse Ox O2 Del Method 05/01/25 11:05 36.6 C 113 H 20 116/73 98 Room Air 05/01/25 10:30 80 18 98 Room Air 05/01/25 07:26 36.6 C 135 H 20 117/66 99 Room Air 05/01/25 07:24 129 H 05/01/25 07:17 84 16 98 Room Air 05/01/25 03:25 36.5 C 75 18 117/78 97 Room Air Laboratory Results Short CBC 05/01/25 Range/Units 07:57 WBC 5.03 (4.8-10.8) K/ul Hgb 12.0 (12.0-16.0) g/dl Hct 34.6 L (37.0-47.0) % Plt Count 129 L (130-400) K/uL BMP 04/30/25 05/01/25 23:09 07:57 Sodium 122 L 124 L Potassium 4.1 4.3 Chloride 91 L 89 L Carbon Dioxide 25 25 BUN 19 19 Creatinine 0.68 0.78 Glucose 132 H 164 H Calcium 9.1 9.3 Liver Function 04/30/25 Range/Units 23:09 Albumin 3.3 L (3.4-5.0) gm/dl Diagnostic Findings Laboratory Results WBC 5.03 K/ul (4.8-10.8) 05/01/25 07:57 RBC 4.22 M/uL (4.20-5.40) 05/01/25 07:57 Hgb 12.0 g/dl (12.0-16.0) 05/01/25 07:57 Hct 34.6 % (37.0-47.0) L 05/01/25 07:57 MCV 82.0 fL (80.0-100.0) 05/01/25 07:57 MCH 28.4 pg (25.0-34.0) 05/01/25 07:57 MCHC 34.7 g/dL (32.0-36.0) 05/01/25 07:57 RDW Std Deviation 42.8 fL (36.4-46.3) 05/01/25 07:57 RDW Coeff of Shima 14.6 % (11.5-14.5) H 05/01/25 07:57 Plt Count 129 K/uL (130-400) L 05/01/25 07:57 MPV 10.3 fL (9.4-12.4) 05/01/25 07:57 Immature Gran % (Auto) 0.6 % 04/29/25 07:12 Neut % (Auto) 82.3 % 04/29/25 07:12 Lymph % (Auto) 12.2 % 04/29/25 07:12 [place] % (Auto) 4.9 % 04/29/25 07:12 Eos % (Auto) 0.0 % 04/29/25 07:12 Baso % (Auto) 0.0 % 04/29/25 07:12 Neut # (Auto) 2.83 K/uL (1.40-6.50) 04/29/25 07:12 Lymph # (Auto) 0.42 K/uL (1.20-3.40) L 04/29/25 07:12 [place] # (Auto) 0.17 K/uL (0.11-0.59) 04/29/25 07:12 Eos # (Auto) 0.00 K/uL (0.00-0.50) 04/29/25 07:12 Baso # (Auto) 0.00 K/uL (0.00-0.20) 04/29/25 07:12 Immature Gran # (Auto) 0.02 K/uL (0.01-0.20) 04/29/25 07:12 PT 11.2 Seconds (9.0-12.0) 04/29/25 07:12 INR 1.0 (0.9-1.1) 04/29/25 07:12 APTT 23 Seconds (21-31) 04/29/25 07:12 PTT Ratio 0.9 04/29/25 07:12 VBG pH 7.48 (7.36-7.41) H 04/30/25 23:09 VBG pCO2 35 mmHg (38-50) L 04/30/25 23:09 VBG pO2 73 mmHg 04/30/25 23:09 VBG HCO3 26 mmol/L 04/30/25 23:09 VBG O2 Saturation 96.3 % 04/30/25 23:09 VBG Base Excess 2.8 mEq/L 04/30/25 23:09 Sodium 124 mmol/L (136-145) L 05/01/25 07:57 Potassium 4.3 mmol/L (3.5-5.1) 05/01/25 07:57 Chloride 89 mmol/L (98-107) L 05/01/25 07:57 Carbon Dioxide 25 mmol/L (21-32) 05/01/25 07:57 Anion Gap 10 (3-11) 05/01/25 07:57 BUN 19 mg/dl (6-23) 05/01/25 07:57 Creatinine 0.78 mg/dl (0.6-1.2) 05/01/25 07:57 Est Cr Clr Drug Dosing 54.6 ml/min 05/01/25 07:57 eGFR 79.65 05/01/25 07:57 BUN/Creatinine Ratio 24.4 (10-20) H 05/01/25 07:57 Glucose 164 mg/dl (70-99(Fasting)) H 05/01/25 07:57 Osmolality 256 mOsm/kg (280-300) L 04/29/25 07:12 Lactate 1.5 mmol/L (0.4-2.0) 04/30/25 Unknown Calcium 9.3 mg/dl (8.6-10.3) 05/01/25 07:57 Phosphorus 3.2 mg/dl (2.5-4.9) 05/01/25 07:57 Magnesium 1.9 mg/dl (1.7-2.4) 05/01/25 07:57 Total Bilirubin 1.6 mg/dl (0.2-1.0) H 04/29/25 07:12 AST 31 U/L (13-39) 04/29/25 07:12 ALT 12 U/L (7-52) 04/29/25 07:12 Alkaline Phosphatase 64 U/L (34-104) 04/29/25 07:12 Ammonia 21.0 umol/L (18-72) 04/29/25 08:01 Troponin I High Sens 24.6 pg/ml (0-14) H 04/29/25 09:19 C-Reactive Protein < 0.50 mg/dl (0-0.5) 04/29/25 07:12 Total Protein 7.8 gm/dl (6.0-8.3) 04/29/25 07:12 Albumin 3.3 gm/dl (3.4-5.0) L 04/30/25 23:09 Globulin 3.4 gm/dl (2.5-4.0) 04/29/25 07:12 Albumin/Globulin Ratio 1.3 (0.9-2) 04/29/25 07:12 Procalcitonin < 0.02 ng/ml (0-0.5) 04/29/25 07:12 TSH 0.857 uIu/ml (0.300-4.500) 04/29/25 07:12 Urine Color Yellow 04/29/25 11:23 Urine Appearance Clear (Clear) 04/29/25 11:23 Urine pH 6.0 (4.5-7.5) 04/29/25 11:23 Ur Specific [place] 1.006 (1.000-1.030) 04/29/25 11:23 Urine Protein Negative (Negative) 04/29/25 11:23 Urine Glucose (UA) Negative (Negative) 04/29/25 11:23 Urine Ketones Negative (Negative) 04/29/25 11:23 Urine Blood 1+ (Negative) H 04/29/25 11:23 Urine Nitrite Positive (Negative) A 04/29/25 11:23 Urine Bilirubin Negative (Negative) 04/29/25 11:23 Urine Urobilinogen Negative (Negative) 04/29/25 11:23 Ur Leukocyte Esterase 1+ (Negative) H 04/29/25 11:23 Urine WBC (Auto) 6-10 /hpf (0-5) H 04/29/25 11:23 Urine RBC (Auto) 0-2 /hpf (0-2) 04/29/25 11:23 U Hyaline Cast (Auto) 0-2 /lpf (0-2) 04/29/25 11:23 U Epithel Cells (Auto) 0-2 /hpf (0-2) 04/29/25 11:23 Urine Bacteria (Auto) 4+ (None Seen) H 04/29/25 11:23 Urine Osmolality 162 mOsm/kg (500-800) L 04/29/25 11:23 Ur Random Sodium 24 mmol/L 04/29/25 11:23 Urine Comment 04/29/25 11:23 Urine Opiates Screen Pos (Neg) H 04/29/25 11:23 Ur Methadone, Qual Pos (Neg) H 04/29/25 11:23 Urine Fentanyl Screen Neg (Neg) 04/29/25 11:23 Urine Barbiturates Neg (Neg) 04/29/25 11:23 Ur Phencyclidine (PCP) Neg (Neg) 04/29/25 11:23 U Amphetamin/Meth Scrn Neg (Neg) 04/29/25 11:23 MDMA (Ecstasy) Screen Neg (Neg) 04/29/25 11:23 U Benzodiazepines Scrn Neg (Neg) 04/29/25 11:23 Ur Cocaine Metabolite Neg (Neg) 04/29/25 11:23 U Marijuana (THC) Screen Neg (Neg) 04/29/25 11:23 SARS-CoV-2 (PCR) NEGATIVE (Negative) 04/29/25 08:38 Influenza Type A (PCR) Negative (Neg) 04/29/25 08:38 Influenza Type B (PCR) Negative (Neg) 04/29/25 08:38 RSV (RT-PCR) Negative (Neg) 04/29/25 08:38 Impressions Chest X-Ray 04/29/25 07:03 EXAM: XR chest 1V portable CLINICAL HISTORY: Dysrhythmia TECHNIQUE: An X-ray image of the chest is obtained in PA projection. COMPARISON: 10/20/2021 CR, CT dated 10/15/2024 was reviewed. FINDINGS: Pulmonary Parenchyma: Bilateral prominent bronchovascular/interstitial markings. Small atelectatic band traversing in the right perihilar region. No evidence of consolidation or focal opacity seen. No pulmonary nodule seen. No evidence of pleural effusion or pleural thickening. Heart and Mediastinum: Heart size and shape are normal. No mediastinal widening or masses. No hilar or mediastinal lymphadenopathy. Bony Thorax: Bony thorax appears intact without fractures or deformities. Soft Tissues: Soft tissues overlying the chest wall are unremarkable. IMPRESSION: 1. No acute cardiopulmonary abnormality seen. 2. Bilateral prominent bronchovascular/interstitial markings. Bronchitis suggest clinical correlation. 3. Small atelectatic band traversing in the right perihilar region. 4. Comparing the previous x-ray dated 10/20/2021 the findings remain stable. Electronically signed by Milad Smith 04-29-2025 07:58 AM
[2025-05-01 15:25] VITALS: RESP 18
[2025-05-01] MEDS: FUROSEMIDE INJ 20 MG/2 ML VIAL IV ONE (15:47)
[2025-05-01] MEDS: DIGOXIN 250 MCG in SYRINGE 9 ML IV ONE ×2 (15:47→19:46)
[2025-05-02 06:02] LABS: Hydrocodone Urine NEGATIVE ng/mL (<50); Hydromor Urine NEGATIVE ng/mL (<50); Methadone, Ur Metabolite 704 ng/mL (<100); Methadone, Ur Verification 1460 ng/mL (<100); Noroxycodone Urine NEGATIVE ng/mL (<50); Oxymorph Urine NEGATIVE ng/mL (<50)
--- NOTE | 2025-05-02 06:29 | Electrocardiogram Report ---
Test Reason : Blood Pressure : */* mmHG Vent. Rate : 128 BPM Atrial Rate : * BPM P-R Int : * ms QRS Dur : 82 ms QT Int : 298 ms P-R-T Axes : * 55 195 degrees QTcB Int : 435 ms Atrial fibrillation with rapid ventricular response Nonspecific ST abnormality Abnormal ECG When compared with ECG of 18-Apr-2025 11:16, No significant change was found HR has increased Confirmed by Jose David Cook ([id number] on 05/02/2025 6:29:16 AM Referred By: REFERRED SELF Confirmed By: Jose David Cook
[2025-05-02 07:35] LABS: Hematocrit (blood only) 31.7 % (37.0-47.0); Hemoglobin 10.7 g/dl (12.0-16.0); Mean Corpuscular Hemoglobin 28.2 pg (25.0-34.0); Mean Corpuscular Volume 83.4 fL (80.0-100.0); Platelet Count 114 K/uL (130-400); RDW Standard Deviation 44.9 fL (36.4-46.3); Red Blood Count 3.80 M/uL (4.20-5.40); White Blood Count 2.38 K/ul (4.8-10.8)
[2025-05-02 07:49] LABS: Anion Gap 4.0 (3-11); Blood Urea Nitrogen 18.0 mg/dl (6-23); Calcium 8.2 mg/dl (8.6-10.3); Carbon Dioxide 32.0 mmol/L (21-32); Chloride 93.0 mmol/L (98-107); Creatinine Clr Calc Pharmacy 71.0 ml/min; Glucose 96.0 mg/dl (70-99(Fasting)); Magnesium 1.6 mg/dl (1.7-2.4); Potassium 3.5 mmol/L (3.5-5.1); Sodium 129.0 mmol/L (136-145)
[2025-05-02] MEDS: FLUTICASONE/VILANTEROL 100/25MCG 14 PUFFS/INHALER INH SCH (07:58)
[2025-05-02] MEDS: MAGNESIUM SULFATE / D5W 1 GM/100 ML BAG IV ONE (08:42)
--- NOTE | 2025-05-02 08:45 | Cardiology Progress Note ---
<Statement entered by Annemarie Briceño MD - 05/02/25 16:03> I have reviewed the advanced practitioner's documentation on the date of service referenced in note, and I agree with, and take responsibility for the plan of care. I spent a total of [15] minutes coordinating, documenting, and providing care for this patient excluding time spent in the performance of separately billed services or time spent by another provider. Date of Service May 02, 2025 Assessment & Plan (1) Atrial fibrillation with rapid ventricular response: (2) Hypokalemia: (3) Hypomagnesemia: (4) Acute hyponatremia: (5) Acute bronchitis: (6) Acute exacerbation of chronic obstructive pulmonary disease: Plan 75 yo woman presenting with COPD exacerbation Consult - recurrent Afib/flutter with RVR -Patient demonstrates clinical improvement from a cardiac perspective. -REview of telemetry shows signficant improvement in heart rates. Responding well to addition of digoxin. Continue Digoxin 0.125mg PO Daily, will need labs OP in 1-2 weeks to assess Dig levels. -Serum Na trending up -Serum Mag 1.6-->currently receiving IV supplementation. Goal serum Mag > 2.0. Continue to monitor closely. -Continue Lopressor -When patient is stable for discharge from a primary care standpoint, recommend that she have cardiology follow up in 4-6 weeks. will have office contact patient. Case has been discussed with Dr. Briceño. Further recommendations regarding plan of care as per his assessment. I spent a total of 30 minutes on the date of service in preparation, delivery, documentation of the care provided to the patient excluding any time spent in the performance of separately billed services. NATHANAEL Ovalles [facility] Admission and Anticipated Discharge Date Admission Date: April 29, 2025 Supervising Physician Co-Signing Physician Notes I have reviewed the advanced practitioner's documentation on the date of service referenced in note, and I agree with, and take responsibility for the plan of care. I spent a total of [15] minutes coordinating, documenting, and providing care for this patient excluding time spent in the performance of separately billed services or time spent by another provider. Subjective 05/02/25: Patient seen and examined in follow up today. Feeling "well" per patient. Patient is sitting out of bed in chair enjoying breakfast with family/friend. Offers no acute cardiac complaints. Labs, vitals, diagnostics, telemetry and documentation reviewed. Telemetry reviewed showing A-fib with occasional PVC's rates 70's. Rates overnight ranged from 100-160bpm--> patient had received low dose digoxin load. Review of Systems Review of Systems: All systems reviewed & are unremarkable except as noted in HPI & below Physical Exam Constitutional: well developed and well nourished; not ill appearing Neck: normal visual inspection and trachea midline Respiratory: normal respiratory effort, lungs clear to auscultation Cardiovascular: Rate/Rhythm: + irregularly irregular Heart Sounds: normal S1 and normal S2 Vessels: dorsalis pedis pulses present; no JVD Skin: no rashes, warm and dry Psychiatric: Orientation: alert, oriented to person and oriented to place (place, but not event) Results & Data Vital Signs (Past 12 Hours) Vital Signs Temp Pulse Pulse Resp BP Pulse Ox O2 Del Method 05/02/25 07:49 36.3 C L 89 18 129/80 98 Room Air 05/02/25 05:00 36.5 C 85 18 132/83 98 Room Air 05/02/25 00:00 106 H 05/01/25 23:00 36.3 C L 113 H 18 123/79 98 Room Air Laboratory Results CBC 05/02/25 Range/Units 06:38 WBC 2.38 L (4.8-10.8) K/ul RBC 3.80 L (4.20-5.40) M/uL Hgb 10.7 L (12.0-16.0) g/dl Hct 31.7 L (37.0-47.0) % Plt Count 114 L (130-400) K/uL Comprehensive Metabolic Panel 05/02/25 Range/Units 06:38 Sodium 129 L (136-145) mmol/L Potassium 3.5 (3.5-5.1) mmol/L Chloride 93 L (98-107) mmol/L Carbon Dioxide 32 (21-32) mmol/L BUN 18 (6-23) mg/dl Creatinine 0.60 (0.6-1.2) mg/dl Glucose 96 (70-99(Fasting)) mg/dl Calcium 8.2 L (8.6-10.3) mg/dl Intake and Output 05/01/25 05/02/25 05/02/25 22:59 06:59 14:59 Intake Total 250 / 1660 1000 / 1660 150 / 150 Output Total 250 / 250 Balance 0 / 1410 1000 / 1410 150 / 150 Intake: IV 1000 / 1050 150 / 150 Magnesium Sulfate / D5w 1 gm In 100 / 100 100 ml @ 50 mls/hr IV ONE ONE Rx#:[id number] Sodium Chloride 0.9% 1,000 ml @ 1000 / 1000 80 mls/hr IV .[id number] [facility] Rx#: [id number] cefTRIAXone SODIUM 2,000 mg In 50 / 50 50 ml @ 100 mls/hr IV Q24H [facility] Rx#:[id number] Oral 250 / 610 Output: Urine 250 / 250 Other: # Unmeasured Voids 2 Weight 63.3 kg Weight Measurement Method Built in [facility] Care Time/CCT Total # of Minutes Spent Total Time Spent with Patient: Total time spent is greater than 50% in coordination of care (as documented) at patient's floor/unit and/or counseling patient: C[place] [address] SUB INP/OBS CARE 2/35MIN Patient Type Established Diagnoses Atrial fibrillation with rapid ventricular response I48.91 Hypokalemia E87.6 Hypomagnesemia E83.42 Acute hyponatremia E87.1 Acute bronchitis J20.9 Acute exacerbation of chronic obstructive pulmonary disease J44.1 Time Spent (min) 30
[2025-05-02 11:46] VITALS: BP 113/73; PULSE 86; TEMP 97.9; O2SAT 100
--- NOTE | 2025-05-02 13:18 | Discharge Summary ---
Discharge Summary Date of Service May 02, 2025 Principal Dx & Hospital Course #1 = Principal Diagnosis (1) Acute exacerbation of chronic obstructive pulmonary disease: (2) Acute bronchitis: (3) Atrial fibrillation with rapid ventricular response: (4) Acute hyponatremia: (5) Hypokalemia: (6) Hypomagnesemia: (7) Elevated lactic acid level: (8) Cirrhosis: (9) Tobacco abuse: Notes For Next Care Provider Medication Changes From Visit See med list Admission HPI Per Admitting Provider 75 year old female with PMH significant for paroxysmal atrial fibrillation, hypertension history of brain mass, thrombocytopenia, insomnia, tobacco use disorder, history of hepatitis C with HCV cirrhosis, and 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 Patient reports she has been SOB even at rest for the last four days. She has been using her albuterol inhaler (20x yesterday and 10x this morning) with no improvement. She has a chronic cough with phlegm that she attributes to smoking that she notes is no different than her baseline. Denies increased sputum or discolored sputum. Denies fevers, chills, cold symptoms, chest pain, abdominal pain, N/V/D, dysuria, weakness. Per record review, she was in the ED on 04/18/2025 after having a fall at home and her examination was concerning for a COPD exacerbation but she left AMA. She was sent home with albuterol and prednisone. She then presented to her PCP yesterday who also treated for exacerbation with antibiotics and prednisone. She was ordered PFTs at that time. She reports she did take her levofloxacin and prednisone that was prescribed with no improvement in SOB. Reports she smokes 3 cigarettes per day. Discharge Exam General- adult elderly female seen at bedside with her significant other and nursing. Patient is less anxious and no tremulous. Eyes- PERRL, EOMI ENT- oropharynx clear Neck- supple, no JVD, no adenopathy, Lungs-essentially clear this a.m. Heart-irregularly irregular at 74 bpm; Abdomen- normal bowel sounds, soft, nontender, no masses or hepatosplenomegaly Extremities- no pretibial edema, no calf tenderness; peripheral pulses intact Neuro- alert, oriented PERRL, EOMI; no facial palsy; no dysarthria; less anxious Skin- warm & dry Updated Medication List Medication Instructions Recorded Confirmed Type aspirin 81 mg tablet,delayed 81 mg PO DAILY 10/15/24 04/29/25 History release hydrochlorothiazide 25 mg tablet 25 mg PO QAM 10/15/24 04/29/25 History losartan 25 mg tablet 25 mg PO QAM 10/15/24 04/29/25 History methocarbamol 750 mg tablet 750 mg PO TID PRN pain/spasm #90 11/27/24 04/29/25 Rx tabs albuterol sulfate 90 mcg/actuation 2 inh inhalation Q6H PRN shortness 04/18/25 04/29/25 Rx aerosol inhaler of breath or wheezing #6.7 grams digoxin 125 mcg (0.125 mg) tablet 0.125 mg PO DAILY@1600 #30 tabs 05/02/25 Rx ([facility]) metoprolol tartrate 75 mg tablet 75 mg PO BID #90 tabs 05/02/25 Rx prednisone 20 mg tablet 40 mg (2 x 20 mg) PO DAILY 5 days 05/02/25 04/29/25 Rx #10 tabs thiamine HCl (vitamin B1) 100 mg 100 mg PO QAM #30 tabs 05/02/25 Rx tablet Hospital Stay Data Consultations 04/29/25 08:38 ED Decision to Admit Stat 04/29/25 11:34 Consult Cardiology Routine Consult Nephrology Routine Pending Results Patient Have Any Pending Studies at Discharge: No Discharge Instructions Given to Patient (Per Discharging Provider) Check BMP, cbc and digoxin level at hospital f/u Do not take HCTZ ever per Nephrology F/U with nephrology next week and cardiology in 1-2 weeks Stop drinking. Consider outpatient alcohol rehab/counseling Total Time Total Time Spent Total Time Spent (In Minutes): A total of 60 minutes was spent in discharge planning, care coordination and discharge planning for this patient. 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 Patient has a significant alcohol history. She was admitted to telemetry. For the COPD exacerbation CXR consistent with bronchitis and no evidence of PNA. Labs revealed leukopenia (baseline for pt), VBG WNL, multiple lyte abnormalities. Covid, flu, RSV all negative. Received ceftriaxone and methylprednisolone in ED. On floor discontinued ceftriaxone daily and switch from Solu-Medrol q8hr to continue oral prednisone. Add azithromycin 500mg x3 days. She finished that course. Xopenex/atrovent nebs q4hr and Budesonide and formoterol nebs bid. Sputum culture if able. ISP and flutter valve. For A fib with RVR and Hypotension: Likely secondary to acute illness, albuterol use, lyte abnormalities. Rates 115s-150s with hypotension 90s/60s. Received 2L NSS in the ED. Cardiology consu lted. Continue to titrate metoprolol tartrate 25mg q6hr. Ended with 75 mg BID. Given IV digoxin. Lovenox 1mg/kg q12hr for anticoagulation. Hold HCTZ and losartan per nephrology and cardiology. Per Nephro never use hydrochlorothiazide in the setting of alcoholic cirrhosis.Echo ordered and reviewed. Patient has a well-preserved left ventricular ejection fraction. Patient has a an ejection fraction of 60 to 65%. 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 candidate for left atrial appendage occlusion. For Hyponatremia Corrected sodium 122 on admission. Received 2.5L NSS total. Serum osmolality 256, urine osmolality 162, urine Na 24. Hold HCTZ indefinitely per nephrology. Trend BMPs. Na 130 on last check. For HCV cirrhosis Follows with [facility]. SVR in Jul 2022. Last EGD and colonoscopy in May 2024. Ammonia 21.Low sodium diet 2g/day and Tylenol max 2g/day. Tobacco use disorder-->Nicotine patch and Counseled on tobacco cessation. For Alcohol abuse-->Patient was at marked risk for alcohol withdrawal and seizures. Continue alcohol withdrawal protocol with gabapentin and lorazepam. For Hypokalemia Hypomagnesemia K 3.0 and Mag 1.4 on admission. Received 20meq IV KCl in the ED - add 40meq PO. Received 2g IV Mag in the ED - add additional 2g IV. Elevated lactic acid level. Lactate 5.2-> 3.3-->1.5. Infectious work up including blood and urine cultures. They were negative. Continue antibiotics as above. DVT Prophylaxis: SQ lovenox for AC Code Status: FULL CODE . Pt condition improved throughout the hospital stay. She did not require oxygen. Her cough and wheezing resolved. Her sodium levels and electrolyte abnormalities improved. She was ambulating as before admission with her cane. At the time of admission she denied chest pain, shortness of breath, wheezing, sputum production, nausea, vomiting, diarrhea, headache or visual disturbances. Her vital signs are stable and she was tolerating p.o. without difficulty. Discharge instructions and medication discharge changes were explained to the patient and her significant other and her friend in detail. Patient has decided she will go stay with her sister for short period of time. She will follow-up with cardiology and nephrology in addition to her PCP over the next 1 to 2 weeks. She needs to have repeat labs done. Unfortunately compliance is an issue along with the patient's alcohol use. Recurrent admissions are probable. * Administered Medications Aspirin (Aspirin 81 Mg Ectab) 81 mg PO DAILY [facility] Stop: 05/29/25 11:33 Last Admin: 05/02/25 07:55 Dose: 81 mg Documented By: Admin: 05/01/25 08:19 Dose: 81 mg Documented By: Admin: 04/30/25 08:07 Dose: 81 mg Documented By: Admin: 04/29/25 12:12 Dose: 81 mg Documented By: KTS Enoxaparin Sodium (Enoxaparin Inj 60 Mg/0.6 Ml Syr) 60 mg SQ Q12H PORTIA Stop: 05/29/25 11:59 Last Admin: 05/01/25 21:27 Dose: 60 mg Documented By: Admin: 05/01/25 11:39 Dose: 60 mg Documented By: Admin: 04/30/25 23:33 Dose: Not Given Documented By: Admin: 04/30/25 11:52 Dose: Not Given Documented By: Admin: 04/29/25 23:40 Dose: Not Given Documented By: Admin: 04/29/25 12:13 Dose: 60 mg Documented By: KTS Fluticasone/Vilanterol (Fluticasone/Vilanterol 100/25mcg 14 Puffs/Inhaler) 1 puffs INH DAILY [facility] Stop: 06/01/25 08:59 Last Admin: 05/02/25 07:58 Dose: 1 puffs Documented By: TOMA Folic Acid (Folic Acid 1 Mg Tab) 1 mg PO QAM [facility] Stop: 05/31/25 08:59 Last Admin: 05/02/25 07:56 Dose: 1 mg Documented By: Admin: 05/01/25 08:20 Dose: 1 mg Documented By: PK Ceftriaxone Sodium (Rocephin) 2,000 mg in 50 mls @ 100 mls/hr IV Q24H PORTIA Stop: 05/05/25 07:59 Last Infusion: 05/02/25 09:05 Dose: Infused Documented By: Admin: 05/02/25 08:08 Dose: 100 mls/hr Documented By: Infusion: 05/01/25 09:08 Dose: Infused Documented By: Admin: 05/01/25 08:18 Dose: 100 mls/hr Documented By: Infusion: 04/30/25 08:37 Dose: Infused Documented By: Admin: 04/30/25 08:06 Dose: 100 mls/hr Documented By: ILAN Methylprednisolone 40 mg/ (Syringe) 0.64 mls @ 1.5 mls/min IV Q8 [facility] Stop: 05/29/25 15:59 Last Admin: 05/02/25 05:08 Dose: 1.5 mls/min Documented By: JOSE M Admin: 05/01/25 20:25 Dose: 1.5 mls/min Documented By: Admin: 05/01/25 13:37 Dose: 1.5 mls/min Documented By: Admin: 05/01/25 06:22 Dose: Not Given Documented By: Admin: 04/30/25 22:12 Dose: 1.5 mls/min Documented By: Admin: 04/30/25 13:35 Dose: 1.5 mls/min Documented By: Admin: 04/30/25 05:49 Dose: 1.5 mls/min Documented By: Admin: 04/29/25 22:26 Dose: 1.5 mls/min Documented By: Admin: 04/29/25 15:37 Dose: 1.5 mls/min Documented By: ILAN Sodium Chloride (Nss) 1,000 mls @ 80 mls/hr IV .[id number] [facility] Stop: 05/04/25 11:29 Last Admin: 05/02/25 00:30 Dose: 80 mls/hr Documented By: JOSE M Infusion: 05/02/25 00:09 Dose: Infused Documented By: JOSE M Admin: 05/01/25 11:39 Dose: 80 mls/hr Documented By: DAY Lorazepam (Lorazepam 0.5 Mg Tab) 0.5 mg PO TID PRN PRN Reason: Anxiety Stop: 05/30/25 11:55 Last Admin: 05/02/25 06:26 Dose: 0.5 mg Documented By: JOSE M Admin: 05/01/25 19:45 Dose: 0.5 mg Documented By: JOSE M Admin: 04/30/25 12:02 Dose: 0.5 mg Documented By: ILAN Metoprolol Tartrate (Metoprolol Tartrate 50 Mg Tab) 50 mg PO Q8 [facility] Stop: 05/30/25 21:59 Last Admin: 05/02/25 05:07 Dose: 50 mg Documented By: JOSE M Admin: 05/01/25 19:45 Dose: 50 mg Documented By: JOSE M Admin: 05/01/25 13:37 Dose: 50 mg Documented By: Admin: 05/01/25 08:14 Dose: 50 mg Documented By: Admin: 05/01/25 06:22 Dose: Not Given Documented By: Admin: 04/30/25 22:12 Dose: 50 mg Documented By: EVI Miscellaneous (Remove Nicoderm Patch) 1 each N/A DAILY@0859 [facility] Stop: 05/29/25 11:46 Last Admin: 05/02/25 07:56 Dose: 1 each Documented By: Admin: 05/01/25 08:18 Dose: 1 each Documented By: Admin: 04/30/25 08:07 Dose: 1 each Documented By: Admin: 04/29/25 12:13 Dose: 1 each Documented By: ILAN Multivitamins (Multivitamin Tab) 1 tab PO QAM [facility] Stop: 05/31/25 08:59 Last Admin: 05/02/25 07:54 Dose: 1 tab Documented By: Admin: 05/01/25 08:20 Dose: 1 tab Documented By: PK Nicotine (Nicotine 7 Mg/24 Hr Tdsy) 1 patch TD QAM [facility] Stop: 05/29/25 11:33 Last Admin: 05/02/25 07:56 Dose: 1 patch Documented By: Admin: 05/01/25 08:19 Dose: 1 patch Documented By: Admin: 04/30/25 08:08 Dose: 1 patch Documented By: Admin: 04/29/25 12:12 Dose: 1 patch Documented By: ILAN Thiamine HCl (Thiamine Hcl 100 Mg Tab) 100 mg PO [facility] Stop: 05/31/25 08:59 Last Admin: 05/02/25 07:55 Dose: 100 mg Documented By: Admin: 05/01/25 08:19 Dose: 100 mg Documented By: PK Discontinued Medications Albuterol (Albut/Ipratrop 3mg/0.5mg Neb 3 Ml Vial) 3 ml NEB NOW STA; Protocol Stop: 04/29/25 08:21 Last Admin: 04/29/25 08:35 Dose: 3 ml Documented By: DARRIUS Azithromycin (Azithromycin 250 Mg Tab) 500 mg PO [facility] Stop: 05/01/25 09:01 Last Admin: 05/01/25 08:19 Dose: 500 mg Documented By: Admin: 04/30/25 08:07 Dose: 500 mg Documented By: ILAN Azithromycin (Azithromycin 250 Mg Tab) 500 mg PO ONE ONE Stop: 04/29/25 10:16 Last Admin: 04/29/25 13:27 Dose: 500 mg Documented By: ILAN Budesonide (Budesonide 0.5 Mg/2 Ml Vial (Pulmicort)) 0.5 mg NEB BIDR [facility] Stop: 05/29/25 10:04 Last Admin: 05/01/25 07:16 Dose: 0.5 mg Documented By: Admin: 04/30/25 19:41 Dose: 0.5 mg Documented By: Admin: 04/30/25 07:07 Dose: 0.5 mg Documented By: Admin: 04/29/25 20:08 Dose: 0.5 mg Documented By: Admin: 04/29/25 11:36 Dose: 0.5 mg Documented By: [id number] Formoterol Fumarate (Formoterol 20 Mcg/2 Ml Vial) 20 mcg NEB BIDR [facility] Stop: 05/29/25 10:04 Last Admin: 05/01/25 07:16 Dose: 20 mcg Documented By: Admin: 04/30/25 19:41 Dose: 20 mcg Documented By: Admin: 04/30/25 07:07 Dose: 20 mcg Documented By: Admin: 04/29/25 20:09 Dose: 20 mcg Documented By: Admin: 04/29/25 11:36 Dose: 20 mcg Documented By: [id number] Furosemide (Furosemide Inj 20 Mg/2 Ml Vial) 20 mg IV ONE ONE Stop: 04/30/25 14:27 Last Admin: 04/30/25 13:55 Dose: 20 mg Documented By: ILAN Furosemide (Furosemide Inj 20 Mg/2 Ml Vial) 20 mg IV ONE ONE Stop: 05/01/25 16:17 Last Admin: 05/01/25 15:47 Dose: 20 mg Documented By: Gabapentin (Gabapentin 600 Mg Tab) 1,200 mg PO NOW ONE Stop: 04/30/25 14:09 Last Admin: 04/30/25 15:03 Dose: 1,200 mg Documented By: ILAN Gabapentin (Gabapentin 600 Mg Tab) 600 mg PO Q6H [facility] Stop: 05/01/25 04:01 Last Admin: 05/01/25 04:56 Dose: Not Given Documented By: Admin: 04/30/25 22:12 Dose: 600 mg Documented By: EVI Gabapentin (Gabapentin 600 Mg Tab) 600 mg PO Q8H [facility] Stop: 05/02/25 06:01 Last Admin: 05/02/25 05:07 Dose: 600 mg Documented By: JOSE M Admin: 05/01/25 19:45 Dose: 600 mg Documented By: JOSE M Admin: 05/01/25 13:38 Dose: 600 mg Documented By: DAY Magnesium Sulfate/Dextrose (Magnesium Sulfate / D5w) 1 gm in 100 mls @ 100 mls/hr IV NOW STA Stop: 04/29/25 08:03 Last Infusion: 04/29/25 09:30 Dose: Infused Documented By: Admin: 04/29/25 08:08 Dose: 100 mls/hr Documented By: DARRIUS Sodium Chloride (Nss) 1,000 mls @ 999 mls/hr IV .Q1H1M ONE Stop: 04/29/25 08:32 Last Infusion: 04/29/25 09:43 Dose: Infused Documented By: Admin: 04/29/25 08:08 Dose: 999 mls/hr Documented By: DARRIUS Sodium Chloride (Nss) 1,000 mls @ 999 mls/hr IV .Q1H1M ONE Stop: 04/29/25 09:19 Last Infusion: 04/29/25 11:13 Dose: Infused Documented By: Admin: 04/29/25 09:40 Dose: 999 mls/hr Documented By: DARRIUS Magnesium Sulfate/Dextrose (Magnesium Sulfate / D5w) 1 gm in 100 mls @ 100 mls/hr IV NOW STA Stop: 04/29/25 09:18 Last Infusion: 04/29/25 11:13 Dose: Infused Documented By: Admin: 04/29/25 09:38 Dose: 100 mls/hr Documented By: DARRIUS Ceftriaxone Sodium (Rocephin) 2,000 mg in 50 mls @ 100 mls/hr IV NOW STA Stop: 04/29/25 08:48 Last Infusion: 04/29/25 09:15 Dose: Infused Documented By: [facility] Admin: 04/29/25 08:34 Dose: 100 mls/hr Documented By: DARRIUS Potassium Chloride (K Eldon / Wtr) 10 meq in 100 mls @ 100 mls/hr IV Q1H [facility] Stop: 04/29/25 10:29 Last Infusion: 04/29/25 12:09 Dose: Infused Documented By: Admin: 04/29/25 10:18 Dose: 100 mls/hr Documented By: Infusion: 04/29/25 10:17 Dose: Infused Documented By: [facility] Admin: 04/29/25 08:34 Dose: 100 mls/hr Documented By: DARRIUS Magnesium Sulfate/Dextrose (Magnesium Sulfate / D5w) 1 gm in 100 mls @ 100 mls/hr IV Q1H [facility] Stop: 04/29/25 11:58 Last Admin: 04/29/25 11:54 Dose: Not Given Documented By: Admin: 04/29/25 11:50 Dose: Not Given Documented By: KTS Sodium Chloride (Nss) 500 mls @ 999 mls/hr IV .Q31M ONE Stop: 04/29/25 11:56 Last Infusion: 04/29/25 12:39 Dose: Infused Documented By: Admin: 04/29/25 12:04 Dose: 999 mls/hr Documented By: JUNIORS Magnesium Sulfate/Dextrose (Magnesium Sulfate / D5w) 1 gm in 100 mls @ 50 mls/hr IV Q2H [facility] Stop: 04/29/25 16:44 Last Infusion: 04/29/25 17:23 Dose: Infused Documented By: Admin: 04/29/25 15:16 Dose: 50 mls/hr Documented By: Infusion: 04/29/25 15:16 Dose: Infused Documented By: Admin: 04/29/25 13:27 Dose: 50 mls/hr Documented By: ILAN Sodium Chloride (Nss) 500 mls @ 50 mls/hr IV .Q10H [facility] Stop: 04/30/25 13:29 Last Infusion: 04/30/25 13:35 Dose: Infused Documented By: Admin: 04/30/25 04:22 Dose: 50 mls/hr Documented By: Infusion: 04/30/25 04:22 Dose: Infused Documented By: Admin: 04/29/25 18:22 Dose: 50 mls/hr Documented By: ILAN Digoxin 250 mcg/ Syringe 10 mls @ 2 mls/min IV NOW ONE Stop: 05/01/25 15:28 Last Admin: 05/01/25 15:47 Dose: 2 mls/min Documented By: Digoxin 250 mcg/ Syringe 10 mls @ 2 mls/min IV ONE ONE Stop: 05/01/25 20:04 Last Admin: 05/01/25 19:46 Dose: 2 mls/min Documented By: JOSE M Magnesium Sulfate/Dextrose (Magnesium Sulfate / D5w) 1 gm in 100 mls @ 50 mls/hr IV ONE ONE Stop: 05/02/25 09:59 Last Infusion: 05/02/25 11:18 Dose: Infused Documented By: Admin: 05/02/25 08:42 Dose: 50 mls/hr Documented By: TOMA Ipratropium Rum[place] (Ipratropium [place] Neb Soln 0.02% 0.5mg/2.5ml Vial) 0.5 mg NEB Q4 [facility] Stop: 05/29/25 10:04 Last Admin: 04/30/25 10:37 Dose: Not Given Documented By: Admin: 04/29/25 11:36 Dose: Not Given Documented By: [id number] Ipratropium [place] (Ipratropium [place] Neb Soln 0.02% 0.5mg/2.5ml Vial) 0.5 mg NEB Q4R PORTIA Stop: 05/29/25 14:59 Last Admin: 05/01/25 10:29 Dose: 0.5 mg Documented By: Admin: 05/01/25 07:16 Dose: Not Given Documented By: Admin: 05/01/25 03:19 Dose: Not Given Documented By: Admin: 04/30/25 22:24 Dose: 0.5 mg Documented By: Admin: 04/30/25 19:42 Dose: Not Given Documented By: Admin: 04/30/25 15:13 Dose: 0.5 mg Documented By: Admin: 04/30/25 11:07 Dose: 0.5 mg Documented By: Admin: 04/30/25 07:07 Dose: Not Given Documented By: Admin: 04/30/25 03:29 Dose: Not Given Documented By: Admin: 04/29/25 22:17 Dose: 0.5 mg Documented By: Admin: 04/29/25 20:11 Dose: Not Given Documented By: Admin: 04/29/25 15:32 Dose: Not Given Documented By: [id number] Ketorolac Tromethamine (Ketorolac Tromethamine 15 Mg/Ml Vial) 15 mg IV NOW ONE Stop: 04/30/25 00:24 Last Admin: 04/30/25 00:36 Dose: 15 mg Documented By: EVI Levalbuterol HCl (Levalbuterol 1.25 Mg/3 Ml Neb) 1.25 mg NEB Q4H PORTIA Stop: 05/29/25 09:59 Last Admin: 04/29/25 11:36 Dose: Not Given Documented By: [id number] Levalbuterol HCl (Levalbuterol 1.25 Mg/3 Ml Neb) 1.25 mg NEB Q4R PORTIA Stop: 05/29/25 14:59 Last Admin: 05/01/25 10:29 Dose: 1.25 mg Documented By: Admin: 05/01/25 07:16 Dose: Not Given Documented By: Admin: 05/01/25 03:20 Dose: Not Given Documented By: Admin: 04/30/25 22:24 Dose: 1.25 mg Documented By: Admin: 04/30/25 19:43 Dose: Not Given Documented By: Admin: 04/30/25 15:13 Dose: 1.25 mg Documented By: Admin: 04/30/25 11:07 Dose: 1.25 mg Documented By: Admin: 04/30/25 07:07 Dose: Not Given Documented By: Admin: 04/30/25 03:29 Dose: Not Given Documented By: Admin: 04/29/25 22:17 Dose: 1.25 mg Documented By: Admin: 04/29/25 20:12 Dose: Not Given Documented By: Admin: 04/29/25 15:32 Dose: Not Given Documented By: [id number] Lorazepam (Lorazepam 2 Mg/1 Ml Vial) 0.25 mg IV NOW STA Stop: 04/30/25 00:23 Last Admin: 04/30/25 00:37 Dose: 0.25 mg Documented By: EVI Methylprednisolone (Methylprednisolone 125 Mg/2 Ml Vial) 125 mg IV NOW STA Stop: 04/29/25 08:21 Last Admin: 04/29/25 08:35 Dose: 125 mg Documented By: DARRIUS Metoprolol Tartrate (Metoprolol Tartrate 25 Mg Tab) 25 mg PO Q6 [facility] Stop: 05/29/25 11:59 Last Admin: 04/30/25 11:52 Dose: 25 mg Documented By: Admin: 04/30/25 05:49 Dose: 25 mg Documented By: Admin: 04/29/25 23:40 Dose: Not Given Documented By: Admin: 04/29/25 17:31 Dose: 25 mg Documented By: Admin: 04/29/25 12:13 Dose: 25 mg Documented By: ILAN Metoprolol Tartrate (Metoprolol Tartrate 25 Mg Tab) 25 mg PO ONE ONE Stop: 04/29/25 10:16 Last Admin: 04/29/25 12:08 Dose: Not Given Documented By: ILAN Metoprolol Tartrate (Metoprolol Tartrate 1 Mg/Ml Vial) 2.5 mg IV NOW ONE Stop: 04/29/25 23:56 Last Admin: 04/29/25 23:19 Dose: 2.5 mg Documented By: EVI Metoprolol Tartrate (Metoprolol Tartrate 1 Mg/Ml Vial) 2.5 mg IV NOW STA Stop: 04/30/25 22:52 Last Admin: 04/30/25 22:59 Dose: 2.5 mg Documented By: EVI Potassium Chloride (Potassium Chloride Crtab 20 Meq Tabcr) 40 meq PO NOW STA Stop: 04/29/25 09:59 Last Admin: 04/29/25 12:43 Dose: Not Given Documented By: ILAN Potassium Chloride (Potassium Chloride Crtab 20 Meq Tabcr) 40 meq PO NOW STA Stop: 04/29/25 12:45 Last Admin: 04/29/25 13:27 Dose: 40 meq Documented By: ILAN Potassium Chloride (Potassium Chloride Crtab 20 Meq Tabcr) 20 meq PO NOW STA Stop: 05/01/25 11:17 Last Admin: 05/01/25 11:39 Dose: 20 meq Documented By: DAY Thiamine HCl (Thiamine Hcl 100 Mg/Ml 2 Ml Vial) 100 mg IM NOW ONE Stop: 04/30/25 14:09 Last Admin: 04/30/25 16:11 Dose: 100 mg Documented By: ILAN Tramadol HCl (Tramadol Hcl 50 Mg Tablet) 50 mg PO NOW STA Stop: 04/29/25 19:39 Last Admin: 04/29/25 19:52 Dose: 50 mg Documented By: EVI
[2025-05-02] MEDS ORDERED: DIGOXIN 0.125 MG TAB PO SCH (16:00)
[2025-05-02] MEDS ORDERED: GABAPENTIN 600 MG TAB PO SCH (18:00)
[2025-05-04] MEDS ORDERED: GABAPENTIN 600 MG TAB PO SCH (06:00)
== END 2025-05-02 13:15 | disposition home or self-care (01) | DRG 191 ==
LOC: ED 07:01 → 2S 09:57 → SUATTDRO 09:57 → 2S 11:10